=== PATIENT | male | born 1945 | race Caucasian/White ===

== ENCOUNTER → 2016-07-15 | Outpatient (CLI) | payer OTHER ==
[~2016-07-15] MED LIST: ACET1TAB84 PO; ASPI1TAB83 PO; CARB25TA14 PO; CLOP1TAB15 PO; CMP/10 PO; CRG625 PO; FURO-85 PO; GABA-113 PO; GLC500 PO; INSPMPHMLG SQ; INSUINJ4 SC; LORA-741 PO; LPT10 PO; NRN/300 PO; ONDA4TAB65 PO; ONDA8TAB6 PO; OPTIRAY 320 IV PRN; OXYC1TAB3 PO; PANT40TA PO; PROC1TAB5 PO; PSYL55.43 PO; ROPI0.25 PO; SENN1TAB77 PO; SILO8CAP PO
--- NOTE | 2016-07-15 12:42 | DIAGNOSTIC IMAGING REPORT ---
CT OF THE CHEST WITH IV CONTRAST CLINICAL HISTORY: PANCREATIC CA COMPARISON STUDY: 03/06/2016 TECHNIQUE: Following the IV administration of 119 mL of Optiray-320, CT of the thorax was performed from the thoracic inlet to the lung bases. Images are reviewed in the axial, sagittal, and coronal planes. IV contrast was administered without complication. CT DOSE: 1182.07 mGy.cm FINDINGS: Thyroid: Imaged portions of the thyroid gland are normal in appearance. Thoracic aorta: The thoracic aorta is normal in course and caliber, noting standard 3-vessel arch anatomy. No aneurysm or dissection is seen. Pulmonary vasculature: The pulmonary trunk is normal in caliber. There are no central filling defects identified to suggest pulmonary embolus. Note that this examination was not protocoled for the evaluation of pulmonary emboli. HEART: The heart is normal in size and configuration, without pericardial effusion. Lungs and pleural spaces: There is a 15 mm right lower lobe pulmonary nodule as visualized in image #187/306. This appears 2 mm larger than on the preceding study. There is an 8 mm left upper lobe pulmonary nodule as visualized in image #145/306. This appears 1 mm larger than on the prior study. There is a 6 mm nodule superior segment of the left lower lobe abutting the fissure. This remains unchanged when compared the preceding study. There is no lobar consolidation. Mediastinum: Calcified mediastinal lymph nodes remain similar to the prior study. Teresa: There is no evidence of pathologic hilar adenopathy Axilla: Clear. Upper abdomen: There is a 7 cm pancreatic head mass with vascular encasement. Skeletal structures: There are no lytic or blastic osseous lesions. IMPRESSION: 1. 7 cm pancreatic head mass with vascular encasement 2. 15 mm right lower lobe pulmonary nodule, slightly larger than the prior study 3. 8 mm left upper lobe pulmonary nodule, minimally larger than on the prior study Electronically signed by: Ricardo Arce M.D. 07/15/2016 12:40 PM Dictated Date/Time: 07/15/2016 12:31 PM
--- NOTE | 2016-07-15 12:56 | DIAGNOSTIC IMAGING REPORT ---
CT SCAN OF THE ABDOMEN AND PELVIS WITH IV CONTRAST CLINICAL HISTORY: Pancreatic cancer. COMPARISON STUDY: Abdominal CT dated 04/29/2016 and 03/06/2016. TECHNIQUE: Following the IV administration of 119 cc of Optiray 320, CT scan of the abdomen and pelvis is performed from the lung bases to the proximal femora. Images are reviewed in the axial, sagittal, and coronal planes. IV contrast was administered without complication. Automated dose control exposure was utilized. FINDINGS: Lung bases: The heart is normal in size and without pericardial effusion. There are coronary artery calcifications. A right basilar pulmonary lesion is again seen on image #26 appears and measures up to 1.6 cm. The lung bases are otherwise clear. No airspace consolidation or pleural effusion is identified. A small granuloma is noted at the right lung base. A tiny hiatal hernia is identified. Liver: The contrast-enhanced liver is normal in size and contour. The liver demonstrates diffusely diminished attenuation consistent with hepatic steatosis. There is no intrahepatic biliary ductal dilatation. The hepatic veins as well as the main and intrahepatic portal veins are patent. Gallbladder: Unremarkable. Spleen: Normal in size and attenuation. Pancreas: There has been no significant change in the appearance of a heterogeneous/infiltrative mass lesion centered around the head and neck of the pancreas. This measures approximately 5 x 7.5 cm as seen on image #116. The distal pancreas is markedly atrophic. This encases the portosplenic confluence, with occlusion of the SMV and the splenic vein. This also encases the celiac trunk. There are numerous omental and perigastric collateral vessels. Adrenal glands: Unremarkable. Kidneys: The contrast enhanced kidneys are normal in size and without hydronephrosis. The kidneys enhance symmetrically. Abdominal vasculature: The abdominal aorta is normal in course and caliber noting moderate atherosclerotic calcification. Bowel: The small bowel and colon are normal in course and caliber. There is moderate colonic fecal retention. The appendix is well-visualized and normal. Peritoneum: There is no intraperitoneal free air or abdominal ascites. There is a 1.2 cm focus of peritoneal nodularity in the right upper quadrant seen on image #178. This has modestly increased in size from 04/29/2016. An 11 mm omental nodule/lymph node is seen in the central mesentery on image #174. Faint developing nodularity suggested in the ventral mesentery in the left upper quadrant on image #173 Lymphadenopathy: None. Pelvic viscera: The prostate gland is diminutive and heterogeneous. The bladder wall appears thickened and trabeculated suggesting the sequelae of chronic obstruction. There are small bilateral fat-containing inguinal hernias. Skeletal structures: The skeletal structures are osteopenic. Moderate lumbosacral spondylosis is observed. No lytic or blastic lesions are seen. There are healed bilateral rib fractures. IMPRESSION: 1. No significant change in the appearance of a heterogeneous and infiltrative pancreatic mass lesion as compared to the 04/29/2016 examination. 2. An omental lesion in the right upper quadrant has modestly increased in size from previous. 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 3. Question faint developing omental nodularity in the left ventral abdomen. Attention at follow-up is recommended. 4. An indeterminant 1.6 cm nodular density is again seen at the right lung base. 5. The pancreatic mass lesion encases and occludes the superior mesenteric and splenic veins. There are numerous associated collateral vessels. 6. Additional changes as above. Electronically signed by: Sander Clark M.D. 07/15/2016 12:54 PM Dictated Date/Time: 07/15/2016 12:39 PM
== END | disposition home or self-care (01) ==
LOC: C.CTS 12:01
PROVIDERS: ATTEND Nurse Practitioner
DX: C25.1 Malignant neoplasm of body of pancreas (principal)

== ENCOUNTER → 2016-10-08 | Outpatient (CLI) | payer OTHER ==
--- NOTE | 2016-10-08 13:54 | DIAGNOSTIC IMAGING REPORT ---
CT OF THE CHEST WITH IV CONTRAST CLINICAL HISTORY: Pancreatic cancer. COMPARISON STUDY: Head CT July 15, 2016. TECHNIQUE: Following IV administration of 119 mL of Optiray-320, helical axial images of the chest were obtained. Images were viewed in the axial, sagittal and coronal planes. IV contrast was administered without complication. CT DOSE: 1037.91 mGy.cm FINDINGS: No enlarged axillary, mediastinal or hilar lymph nodes are present. The heart is mildly enlarged. There is extensive coronary artery calcification. A right subclavian [id number]-Rmqu is in place. The central airways are patent. A 1.8 cm solid nodule within the lateral basilar segment of the right lower lobe shown on image 197 of 301 has slightly increased in size since prior exam of July 15, 2016 when it measured 1.7 cm. A 9 mm solid and groundglass left upper lobe nodule shown on image 132 has slightly increased in size since prior exam when measured 7 mm. A 6 mm irregular subpleural nodule within the left lower lobe shown image 102 is unchanged. There are no new nodules. The bony thorax is unremarkable. The abdomen and pelvis will be reported separately but again demonstrate the pancreatic mass with vascular encasement. IMPRESSION: 1. Continued slight increase in size of several pulmonary nodules. The largest is a 1.8 cm right lower lobe nodule. The findings represent a slowly progressive neoplastic process. 2. No thoracic lymphadenopathy. Electronically signed by: Jorge L Garcia M.D. 10/08/2016 1:53 PM Dictated Date/Time: 10/08/2016 1:22 PM
--- NOTE | 2016-10-08 14:48 | DIAGNOSTIC IMAGING REPORT ---
ABDOMEN AND PELVIS CT WITH IV AND ORAL CONTRAST CT DOSE: HISTORY: A chronic cancer. TECHNIQUE: Multiaxial CT images of the abdomen and pelvis were performed following the use of intravenous and oral contrast. COMPARISON STUDY: Abdomen and pelvis CT 07/15/2016. FINDINGS: No change in size or appearance within the pancreatic head mass which measures approximately 7.6 x 5.2 cm. The distal pancreas remains markedly atrophic. The mass encases the portal splenic confluence with occlusion of the proximal superior mesenteric vein and splenic vein. Multiple mesenteric venous collaterals remain unchanged. Stable mesenteric lymph nodes with the dominant lymph node measuring 7 mm in short axis diameter. Subtle left-sided omental nodularity has improved. The 8 mm right-sided omental nodule has also decreased in size. This previously measured 12 mm. Bladder is mildly distended and thick-walled. This remains unchanged. Moderate well-formed stool seen within the colon. No evidence for bowel obstruction. Normal appendix. There is a possible 1.3 cm subtle hypodense lesion within the posterior segment of the right hepatic lobe best in image 64. Normal gallbladder, spleen, and adrenal glands. No hydronephrosis. Slight increase in size in 1.8 cm right lower lobe nodule. No suspicious lytic or blastic osseous lesions. IMPRESSION: 1. No change in size or appearance of the pancreatic head mass. 2. A few small omental nodules have slightly decreased in size. 3. Slight increase in size of the 1.8 cm right lower lobe nodule. 4. There is a possible 1.3 cm hypodense lesion within the right hepatic lobe. Continued follow is recommended. This could represent a developing metastatic focus. 5. Additional findings as described above. Electronically signed by: Cuco Zaragoza M.D. 10/08/2016 2:47 PM Dictated Date/Time: 10/08/2016 2:34 PM
== END | disposition home or self-care (01) ==
LOC: C.CTS 11:44
PROVIDERS: ATTEND Nurse Practitioner
DX: C25.1 Malignant neoplasm of body of pancreas (principal); R91.8 Other nonspecific abnormal finding of lung field

== ENCOUNTER → 2016-10-29 | Outpatient (CLI) | payer OTHER ==
[~2016-10-29] VITALS: Ht 170.2 cm; Wt 196.9 kg
[~2016-10-29] MED LIST changes: -OPTIRAY 320 IV PRN
[2016-10-29 13:52] VITALS: BP 125/73; PULSE 76; Ht 170.2 cm; Wt 196.9 kg
== END | disposition home or self-care (01) ==
LOC: C.NEUR 12:51
PROVIDERS: ATTEND Internal Medicine Pulmonary Disease
DX: G47.33 Obstructive sleep apnea (adult) (pediatric) (principal)

== ENCOUNTER → 2016-12-08 | Outpatient (CLI) | payer OTHER ==
[~2016-12-08] MED LIST changes: -PANT40TA PO
--- NOTE | 2016-12-09 05:53 | PAP/PSG TECHNICIAN REPORT ---
[facility] Supervising Chef Polysomnogram Report Study name: None Report date: 12/09/2016 Study date: 12/08/2016 Referring Physician: DR. SHRESTHA Name: BETINA HANDY Interpreting Physician: Brent Shrestha M.D. Date of : 1945 Supervising Chef: Uvaldo Mack RPSGT. Sex: Male Age: 71 StudyType: PSG Weight: 196 lbs 17 inches Height: 71 years, Height 5' 7" Neck Circum: BMI: 30.69 Medications: ASPIRIN 81 MG, CARBIDOPA-LEVODOPA 25-250 MG, CARVEDILOL 6.25 MG, FUROSEMIDE 20 MG, GABAPENTIN 300 MG, HUMALOG, LANTUS SOLOSTAR, LIPITOR 10 MG, LORAZEPAM 0.5 MG, METFORMIN HCL 500 MG, PANTOPRAZOLE SODIUM 40 MG, PLAVIX 75 MG, RAPAFLO 8 MG, ROPINIROLE HCL 0.25 MG, Patient History PATIENT WAS DIAGNOSED WITH TIFF BACK IN 2010 AND WAS WEARING CPAP. HE LOST AROUND 50LBS AND THE CPAP STARTED TO BECOME UNCOMFORTABLE FOR HIM TO WEAR. HE IS HERE FOR AN EVALUATION FOR TIFF. ESS = 21 RM 7 Parameters Monitored NPSG: E1-M2, E2-M1, Fp1-M2, Fp2-M1, F3-M2, F4-M2, F4-M1, C3-M2, C4-M2, C4-M1, O1-M2, O2-M2, O2-M1, T3-M2, T4-M1, P3-M2, P4-M1, CHIN1, CHIN2, HR, EKG, Legs, PFLOW, SNOR, FLOW, CFLOW, Tidal Volume, THOR, ABDO, SpO2, PLTH, CPRESS, ETCO2 Wave, ETCO2, pH Sleep Architecture Sleep Stages Time at Lights Off 10:15:41 PM STAGES Time (min.) TST (%) Time at Lights On 5:25:41 AM Wake 37.5 -- Total Recording Time (TRT) 430.50 min. N1 18.5 5 Total Sleep Period (TSP) 421.0 min. N2 310.0 79 Total Sleep Time (TST) 392.5min. N3 41.5 11 Awake Time 37.5 min. REM 22.5 6 Wake after Sleep Onset 28.5 min. Sleep Efficiency (SE) 91 % Sleep Onset Latency (TRAVIS) 9.0 min. Number of Stage 1 Shifts None Awakenings 16 Stage Changes 62 Number of REM periods 1 REM 22.5 6 REM Latency 159.0 min. NREM 370.0 94 Body Position Analysis Supine Right Left Side Prone Vertical Total Sleep Time (min.) 3.2 260.5 132.0 392.50 0.0 0.0 Total Sleep Time (%) 0% 66% 34% 100 0% N/A% Total Sleep Time REM (min.) 0.0 22.5 0.0 None 0.0 0.0 Total Sleep Time NREM (min.) 0.0 238.0 132.0 None 0.0 0.0 Intermittent Wake (min.) 3.2 12.9 21.4 None 0.0 0.0 Total Sleep Period (%) 0% None None None None None Arousals Myoclonus (PLM) * Events Count Index Events Count Index Spontaneous 28 4 Events Awake (PLMW) 31 49.6 Respiratory 2 0.3 Events Asleep w/ Arousal (PLMA) 15 2.3 PLM 13 2 Events Asleep w/o Arousal (PLMS) 516 78.9 Snoring 2 0 Total Asleep 531 81.2 Total 45 7 Total 562 78 Respiratory Analysis * CA OA MA CH H RERA Total Count 0 0 0 0 8 1 8 Index 0.0 0.0 0.0 0 1.2 0 1.4 Mean Duration 0.0 0.0 0.0 0.00 18.0 13.8 17.5 Longest Duration 0.0 0.0 0.0 0.00 0.0 13.8 20.4 Respiratory Event Summary Total Supine ~Supine Right Left Prone REM NREM Apneas Count 0 N/A 0 0 0 N/A 0 0 Index 0.0 N/A 0 0.0 0.0 N/A 0 0 Hypopneas (4% Desat) Count 8 N/A 8 6 2 N/A 3 5 Index 1.2 N/A 1 1.4 0.9 N/A 8.0 0.8 Apneas & All Hypopneas Count 8 N/A 8 6 2 N/A 3 5 Index 1.2 N/A 1 1 1 N/A 8.0 0.8 Respiratory Events (Load Tester+All Hyp+RERA) Count 8 N/A 9 7 2 N/A 3 5 Index 1.4 N/A 1 1.6 0.9 N/A 8.0 1.0 Respiratory Related Arousal Count 2 N/A 2 1 1 N/A 0 2 Index 0.3 N/A 0 0 0 N/A 0 0 Snoring Analysis Supine Right Left Prone REM NREM Total Snore duration 1.0 min Snores count N/A 21 5 N/A 3 23 26 Snore mean duration 2.4 Sec Snores index N/A 5 2 N/A 8.0 3.7 4.0 TST with snoring (%) 0.3% Desaturation Event Summary: Minimum %SpO2 Event Count Mean/Min/Max Duration(sec.) Desaturation Index % Time In Bed > 90 15 31.7 / 9.0 / 70.7 2.7 76.7 86 - 90 2 24.5 / 9.0 / 40.0 1.2 23.3 81 - 85 0 N/A 0.0 0.0 76 - 80 0 N/A 0.0 0.0 71 - 75 0 N/A 0.0 0.0 66 - 70 0 N/A 0.0 0.0 61 - 65 0 N/A 0.0 0.0 56 - 60 0 N/A 0.0 0.0 51 - 55 0 N/A 0.0 0.0 < 50 0 N/A 0.0 0.0 Total REM NREM Awake <50% 0.0 min. 0.0 min. 0.0 min. 0.0 min. 51 - 60% 0.0 min. 0.0 min. 0.0 min. 0.0 min. 61 - 70% 0.0 min. 0.0 min. 0.0 min. 0.0 min. 71 - 80% 0.0 min. 0.0 min. 0.0 min. 0.0 min. 81 - 90% 100.2 min. 12.4 min. 85.3 min. 2.5 min. 91 - 100% 329.6 min. 10.1 min. 284.6 min. 34.9 min. Average 92 90 91 93 Minimum SpO2 87 88 87 89 Desaturation Event Index 2.1 8.0 1.0 11.2 # Desat. Events below 89% 4 2 2 N/A Time(%) with Saturation below 89% 1.8 0.2 1.6 0.0 Time(min.) with Saturation below 89% 7.6 0.9 6.7 0.0 Time (mins) REM (mins) NREM (mins) % of TST SpO2 Below 90% 9 3 N6 8.8 SpO2 Below 88% 3 0 0 0 Heart Rate Analysis Min (bpm) Max (bpm) Average (bpm) Awake 61 80 70 NREM 59 76 66 REM 65 74 68 Overall 59 76 66 Supplemental O2 Values Minimum O2 level: None Value Start Time End Time Supervising Chef Comments Mr. Handy slept in the right, left and supine positions. PVC's noted. Leg movements noted. No bruxism noted. Snoring was noted and scored as a 2 on a scale of 1 through 5. (0=no snoring, 5=snoring loud enough to be heard through a closed door or down the [address] way) Mr. Handy awoke to use the restroom 0 times during the night. Mr. Handy stated I slept as well as I do when I am in my own bed. The final report will be interpreted and signed by a sleep physician. The completed physician report will then be placed in the patient medical record. Therapy (cm H2O) 0 TIB (min.) 430.0 TST (min.) 392.5 Sleep Onset (min.) 9.0 REM Onset From Sleep (min.) 159.0 Sleep Efficiency % 91 Wakefulness (%) 9 Wakefulness (min.) 37.5 NREM 1 (%) 5 NREM 1 (min.) 18.5 NREM 2 (%) 79 NREM 2 (min.) 310.0 NREM 3 (%) 11 NREM 3 (min.) 41.5 REM (%) 6 REM (min.) 22.5 # Arousals 45 Arousal Index 7 # Snore 26 Snore Index 4.0 AHI 1.2 AHI Supine N/A AHI Non-Supine 1 NREM AHI 0.8 REM AHI 8.0 RDI 1.4 # Obstructive Apnea 0 # Central Apnea 0 # Mixed Apnea 0 # Hypopneas 8 RERAs 1 Total Respiratory Events 9 Time Below SpO2 89% (min.) 7.6 Mean NREM SpO2 (%) 91 Mean REM SpO2 (%) 90 Mean Sleep SpO2 (%) 91 Min NREM SpO2 (%) 87 Min REM SpO2 (%) 88 Position Supine (min.) 3.2 Position Non-supine (min.) 392.5 LM Index Sleep 81.2 LM Index NREM 85.0 LM Index REM 18.7 Mean Heart Rate (bpm) 66 Min Heart Rate (bpm) 59
--- NOTE | 2016-12-11 09:15 | POLYSOMNOGRAPH REPORT ---
CLINICAL DATA: A 71-year-old male with BMI of 30.7, referred by myself and Dr. Martinez for reevaluation of sleep apnea. He was diagnosed with severe obstructive sleep apnea in 2010 on a home sleep apnea test performed through [facility]. It showed an AHI of 43. He was started on CPAP. He lost 50 pounds and stopped using CPAP. He does have an elevated Ezel Sleepiness score of 21/24. SLEEP ARCHITECTURE: Total sleep period was 421 minutes. Total sleep time was 392.5 minutes divided between 370 of non-REM sleep and 22.5 minutes of REM sleep. Sleep onset latency was 9 minutes. REM latency was mildly delayed at 159 minutes. Sleep efficiency was 91%. Wake after sleep onset was 28.5 minutes. Sleep consisted of stage N1 5%, N2 79%, N3 11%, REM 6%. AROUSAL DATA: 45 arousals were recorded for an index of 7 per hour. 28 were spontaneous. 13 were due to PLMs. PLM DATA: Severely elevated limb movements during sleep were noted. There were 531 limb movements during sleep noted for an index of 81.2 per hour with arousal index of 2.3 per hour. RESPIRATORY DATA: There was no evidence of clinically significant sleep apnea/hypopnea seen. The AHI was 1.2. There were 8 hypopneic episodes, the mean duration of which was 18 seconds. OXIMETRY DATA: No significant hypoxemia was seen. Oxygen collins was 87% during non-REM sleep. Mean saturation was 92%. Time below 88% was 3 minutes. EKG: Heart rates ranged from 59-76 beats per minute. PVCs were noted. INVESTOR RELATIONS SPECIALIST'S COMMENTS: The patient slept in the right, left and supine positions. Frequent leg movements were noted. Snoring was mild, rated 1-2 on a scale of 1 through 5. IMPRESSION: No evidence of clinically significant sleep apnea/hypopnea or nocturnal hypoxemia. There was nothing on the current sleep study to suggest that CPAP would be needed. The patient did have frequent leg movements during sleep, possibly consistent with his Parkinson's disease and periodic limb movement disorder. RECOMMENDATIONS: There is no need for CPAP at this time. Continued treatment for his Parkinson's disease is recommended. The patient should continue to practice good sleep hygiene. [facility]
== END | disposition home or self-care (01) ==
LOC: C.NEUR 20:00
PROVIDERS: ATTEND Internal Medicine Pulmonary Disease
DX: E11.9 Type 2 diabetes mellitus without complications (principal); I10 Essential (primary) hypertension; G47.00 Insomnia, unspecified; G31.84 Mild cognitive impairment of uncertain or unknown etiology; G47.33 Obstructive sleep apnea (adult) (pediatric); G20 Parkinson's disease; R06.83 Snoring

== ENCOUNTER → 2016-12-27 | Outpatient (CLI) | payer OTHER ==
[~2016-12-27] MED LIST changes: +OPTIRAY 320 IV PRN
--- NOTE | 2016-12-27 12:09 | DIAGNOSTIC IMAGING REPORT ---
CT ABD/PELVIS IV AND ORAL CONT CLINICAL HISTORY: Pancreatic carcinoma. Restaging procedure. COMPARISON STUDY: 10/08/2016 TECHNIQUE: Following the IV administration of 93 mL of Optiray-320, CT scan of the abdomen and pelvis was performed from the lung bases to the proximal femurs. Images are reviewed in the axial, sagittal, and coronal planes. IV contrast was administered without complication. CT DOSE: 820.34 mGy.cm FINDINGS: Lower chest: There is a stable 17 mm pleural-based right lower lobe pulmonary nodule. Liver: There is mild hepatic steatosis. No focal hepatic masses are visualized. Gallbladder: Unremarkable. Spleen: Normal in size and attenuation. Pancreas: There is a 71 x 49 mm pancreatic head mass with encasement of the superior mesenteric and celiac artery. There is encasement and occlusion of the splenic vein Adrenal glands: Unremarkable. Kidneys: There is symmetric renal cortical enhancement. The kidneys are normal in size without hydronephrosis. Bowel: There are no transition zones indicate bowel obstruction. There is no evidence of acute diverticulitis. There is no evidence of acute appendicitis. Peritoneum: There is no intraperitoneal free air or abdominal ascites. Vasculature: The abdominal aorta is normal in course and caliber. Adenopathy: There are no pathologically enlarged lymph nodes by size criteria Pelvic viscera: The bladder, and pelvic viscera are unremarkable. Skeletal structures: No destructive osseous lesions are seen. IMPRESSION: 1. Pancreatic head mass (71 x 49 mm) with vascular encasement. This is perhaps a few millimeters smaller than on the preceding study 2. Stable 17 mm right lower lobe pulmonary nodule 3. No evidence of bowel obstruction. No evidence of free air. No acute inflammatory changes. Electronically signed by: Ricardo Arce M.D. 12/27/2016 12:07 PM Dictated Date/Time: 12/27/2016 11:58 AM
--- NOTE | 2016-12-27 12:17 | DIAGNOSTIC IMAGING REPORT ---
CHEST CT WITH CONTRAST CT DOSE: HISTORY: Pancreatic cancer. TECHNIQUE: Multiaxial CT images of the chest were performed following the intravenous administration of contrast. COMPARISON: Chest CT 10/08/2016. FINDINGS: The central airways are patent. No pleural effusions. No pneumothorax. There are few scattered pulmonary nodules which are not significantly changed in size. Dominant nodule within the right lower lobe continues to measure 1.8 cm. No new pulmonary nodules identified. No suspicious lytic or blastic osseous lesions. Right subclavian Port-A-Cath terminates in the distal SVC. No evidence for an aortic dissection. The central pulmonary arteries are patent. Pancreatic mass is only partially visualized. No mediastinal or hilar lymphadenopathy. IMPRESSION: Stable pulmonary nodules likely representing metastatic disease. Please refer to the same day abdomen and pelvis CT for further evaluation of the pancreatic mass. Electronically signed by: Cuco Zaragoza M.D. 12/27/2016 12:16 PM Dictated Date/Time: 12/27/2016 12:11 PM
== END | disposition home or self-care (01) ==
LOC: C.CTS 11:39
PROVIDERS: ATTEND Nurse Practitioner Family
DX: C25.1 Malignant neoplasm of body of pancreas (principal); R91.1 Solitary pulmonary nodule

== ENCOUNTER → 2016-12-31 | Outpatient (CLI) | payer OTHER ==
[~2016-12-31] MED LIST changes: -OPTIRAY 320 IV PRN
--- NOTE | 2016-12-31 14:31 | DIAGNOSTIC IMAGING REPORT ---
RIGHT PELVIS UNILATERAL HIP 1 VIEW CLINICAL HISTORY: Right hip pain. COMPARISON: CT of the abdomen and pelvis December 27, 2016. FINDINGS: No fracture or suspicious lesion is identified within the right hip. There is moderate vascular calcification. There is mild to moderate osteoarthritis of the right hip. IMPRESSION: 1. No acute fracture of the right hip. 2. Mild to moderate osteoarthritis of the right hip. Electronically signed by: Jorge L Garcia M.D. 12/31/2016 2:30 PM Dictated Date/Time: 12/31/2016 2:28 PM
--- NOTE | 2016-12-31 14:39 | DIAGNOSTIC IMAGING REPORT ---
LUMBAR SPINE 5 VIEWS HISTORY: LOWER BACK PAIN COMPARISON: Lumbar spine 05/18/2015. Abdomen and pelvis CT 12/27/2016. FINDINGS: There is no fracture. No subluxation. Mild to moderate facet osteoarthritis within the mid to lower lumbar spine. There is 3 mm of anterolisthesis of L5 on S1, unchanged. Mild disc space narrowing at L4-L5. Multiple small endplate osteophytes. There is also mild disc space narrowing at L1-L2 and L2-L3. IMPRESSION: No fracture within the lumbar spine. No change in the multilevel degenerative changes as described above. Electronically signed by: Cuco Zaragoza M.D. 12/31/2016 2:38 PM Dictated Date/Time: 12/31/2016 2:36 PM
== END | disposition home or self-care (01) ==
LOC: C.RDSM 13:20
PROVIDERS: ATTEND Physician Assistant
DX: M25.551 Pain in right hip (principal)

== ENCOUNTER 2017-02-18 22:11 | Emergency (ER) | payer OTHER ==
[~2017-02-18] VITALS: Ht 170.2 cm; Wt 85.8 kg
[~2017-02-18 22:11] MED LIST changes: -ACET1TAB84 PO; -LORA-741 PO; -ONDA8TAB6 PO; -OXYC1TAB3 PO; -PROC1TAB5 PO
[2017-02-18 22:17] VITALS: TEMP 36.8; Ht 170.2 cm; Wt 85.8 kg
[2017-02-18] MEDS ORDERED: MoRPHine SULFATE 10 MG/ML CARP/VIAL IM STA (22:27)
[2017-02-18] MEDS ORDERED: ONDANSETRON 4MG OD TAB PO ONE (22:30)
--- NOTE | 2017-02-18 22:44 | EMERGENCY ROOM VISIT NOTE ---
ED Visit Note First contact with patient: 22:20 I did evaluate and examine this patient myself. I did guide management for the patient. I agree with the APC's assessment as discussed. Please see the APC's dictation for further details. I did independently review the left shoulder x- rays.
[2017-02-18] MEDS ORDERED: LORA-741 PO (22:50)
[2017-02-18] MEDS ORDERED: OXYCODONE IR HOME PACK PO ONE (23:00)
--- NOTE | 2017-02-18 23:00 | DIAGNOSTIC IMAGING REPORT ---
CHEST ONE VIEW PORTABLE CLINICAL HISTORY: fall, left shoulder pain trauma. Pain. COMPARISON STUDY: 04/29/2016 FINDINGS: Fracture left humeral neck and possibly head. Lungs are clear. Central catheter ends. Cava. IMPRESSION: Fracture left humeral neck/head. The lungs are clear. The above report was generated using voice recognition software. It may contain grammatical, syntax or spelling errors. Electronically signed by: Pepito Knight M.D. 02/18/2017 10:59 PM Dictated Date/Time: 02/18/2017 10:58 PM
--- NOTE | 2017-02-18 23:01 | DIAGNOSTIC IMAGING REPORT ---
LEFT SHOULDER MIN 2 VIEWS ROUTINE CLINICAL HISTORY: fall, deformity trauma COMPARISON: 08/28/2015 DISCUSSION: Mildly impacted fracture humeral head and neck. No evidence of dislocation. Moderate degenerative change acromioclavicular joint. There is no evidence for soft tissue swelling. IMPRESSION: Comminuted slightly impacted fracture left humeral head and neck. No evidence of dislocation. The above report was generated using voice recognition software. It may contain grammatical, syntax or spelling errors. Electronically signed by: Pepito Knight M.D. 02/18/2017 11:00 PM Dictated Date/Time: 02/18/2017 10:59 PM
[2017-02-18] MEDS ORDERED: OXYC1TAB3 PO (23:02)
[2017-02-18] MEDS ORDERED: ONDANSETRON HOME PACK 4MG OD TAB ONE (23:11)
[2017-02-18] MEDS ORDERED: ONDANSETRON HOME PACK 4MG OD TAB PO ONE (23:15)
[2017-02-18 23:26] VITALS: BP 146/84; PULSE 77; O2SAT 95
--- NOTE | 2017-02-19 00:15 | EMERGENCY ROOM VISIT NOTE ---
History First contact with patient: 22:20 Chief Complaint: SHOULDER PAIN Stated Complaint: LT SHOULDER INJURY/PAIN History of Present Illness The patient is a 71 year old male who presents to the Emergency Room with complaints of right shoulder pain after slipping in the bathroom coming out of the shower landing on his left shoulder. Pain currently 8 out of 10. Worse with movement and better with rest. Patient denies headache, head injury, neck pain, back pain, chest pain, dyspnea, numbness, tingling, elbow pain, abdominal pain, leg pain or any other medical complaints. No prior fracture to this shoulder. He follows at [facility] orthopedics and he has had shoulder injections before to the shoulder for rotator cuff injury. He is on a baby aspirin. He is currently receiving chemotherapy every 2 weeks for pain for the carcinoma. Review of Systems See HPI for pertinent positives & negatives. A total of 10 systems reviewed and were otherwise negative. Past Medical/Surgical History Medical Problems: (1) Cataract Nos (2) Diab Tessie Wo Compl, Type Ii Or Unspec Type, Not Uncntrld (3) Hypertension Nos (4) Malig Nikhil Pancreas Nos (5) Pancreatic adenocarcinoma (6) Primary pancreatic cancer Family History Diabetes mellitus Heart disease Hypertension Social History Smoking Status: Former Smoker Alcohol Use: occasionally Marital Status: Housing Status: lives with family Occupation Status: retired Current/Historical Medications Scheduled Aspirin (Aspirin), 81 MG PO DAILY Atorvastatin (Atorvastatin Calcium), 10 MG PO HS Carbidopa/Levodopa (Sinemet 25MG/250MG), 1.5 TAB PO QID Carvedilol (Carvedilol), 6.25 MG PO BIDM Clopidogrel (Plavix), 75 MG PO DAILY Gabapentin (Neurontin), 1 CAP PO AM & DINNER Gabapentin (Neurontin), 600 MG PO HS Insulin Glargine (Lantus Solostar Pen), 25-40 UNITS SC HS Insulin Human Lispro (Humalog), 8-20 UNIT SQ ACHS Metformin HCl (Metformin HCl), 500 MG PO BID Ropinirole (Requip), 0.25 MG PO TID Silodosin (Rapaflo), 8 MG PO QPM Scheduled PRN Furosemide (Lasix), 20 MG PO DAILY PRN for FLUID RETENTION Lorazepam (Ativan), 0.5 MG PO DAILY PRN for Anxiety Oxycodone Immediate Rel Tab (Roxicodone Ir), 1-2 TAB PO Q4H PRN for Severe Pain Allergies Coded Allergies: Codeine (Verified Adverse Reaction, Mild, GI SYMPTOMS, 04/29/16) nausea Physical Exam Vital Signs Date Time Temp Pulse Resp B/P (MAP) Pulse Ox O2 Delivery O2 Flow Rate FiO2 02/18/17 23:26 77 18 146/84 95 02/18/17 22:17 36.8 92 16 145/84 95 Room Air Physical Exam VITALS: Vitals are noted on the nurse's note and reviewed by myself. Vital signs stable. GENERAL:pleasant male, in no acute distress, nondiaphoretic, well-developed well -nourished. SKIN: The skin was without rashes, erythema, edema, or bruising. There is no tenting of the skin. Capillary reflex less than 2 seconds. HEAD: Normocephalic atraumatic. EARS: External auditory canals clear, tympanic membranes pearly simmons without erythema or effusion bilaterally. EYES: Pupils equal round and reactive to light and accommodation. Conjunctivae without injection, sclerae without icterus. Extraocular movements intact. NOSE: Patent, turbinates without inflammation or discharge. MOUTH: Mucous membranes moist. Pharynx without erythema or exudate. Uvula midline. Airway patent. Tongue does not deviate. NECK: Supple without nuchal rigidity. No lymphadenopathy. No thyromegaly. Cervical spine is nontender. No JVD. HEART: Regular rate and rhythm LUNGS: Clear to auscultation bilaterally without wheezes, rales or rhonchi. No dullness to percussion. No retractions or accessory muscle use. No chest wall tenderness. ABDOMEN: Positive bowel sounds x 4. Normal tympanic percussion. Soft, nontender, without masses or organomegaly. Gonzales sign negative. No guarding or rebound tenderness. MUSCULOSKELETAL: No muscle atrophy, erythema, or edema noted. Left shoulder with obvious deformity tender to palpation over the humeral head, unable to assess range of motion secondary to pain and obvious deformity. No left clavicular pain, elbow pain, wrist pain, forearm pain, hand pain. Radial pulses +2 equal present bilaterally. Patient can give a thumbs up sign, okay sign and move all fingers without difficulties. NEURO: Patient was alert and oriented to person place and time. Normal sensation to light and sharp touch. No focal neurological deficits. No thoracic or lumbar tenderness on exam. Medical Decision & Procedures Medications Administered Medications (Trade) Dose Ordered Sig/Dez Route Start Time Stop Time Status Last Admin Dose Admin Morphine Sulfate (MoRPHine SULFATE INJ) 8 mg NOW STAT IM 02/18/17 22:27 02/18/17 22:30 DC 02/18/17 23:02 8 MG Ondansetron HCl (Zofran Odt) 4 mg ONE ONCE PO 02/18/17 22:30 02/18/17 22:31 DC 02/18/17 23:02 4 MG Oxycodone HCl (Roxicodone Immediate Rel 5MG Home Pack) 1 homepack UD ONCE PO 02/18/17 23:00 02/18/17 23:01 DC 02/18/17 23:12 1 HOMEPACK Ondansetron HCl (ZOFRAN ODT 4MG Home Pack) 1 homepack UD ONCE PO 02/18/17 23:15 02/18/17 23:16 DC 02/18/17 23:12 1 HOMEPACK ED Course Prior records/ancillary studies reviewed. Triage Nursing notes reviewed. Additional history obtained from family The patient's history was concerning for left shoulder pain. Differential diagnosis: Etiologies such as musculoskeletal, dislocation, fracture, metastatic disease , contusion, as well as others were entertained. Physical findings: As above. No focal neurologic findings noted. ER treatment provided: Morphine, Zofran, sling On reassessment the patient felt better. Diagnostics interpreted by me: Imaging studies: Right shoulder x-ray concerning for impacted humeral head fracture and neck that is comminuted per my interpretation Chest x-ray with no acute consolidation, pneumothorax or free air per my interpretation This appears to be consistent with left humeral head and neck fracture that is comminuted. Patient has an orthopedic doctor. He follows with the [facility] orthopedics. He was placed in a sling and neurovascular status is rechecked after placement and is intact. He is advised to call him this morning at 8 AM for follow-up. He is advised to return to the ER immediately for severe pain, numbness, tingling, worsening signs or symptoms or as needed. By the evaluation outlined above emergent etiologies such as metastatic disease , dislocation, as well as others were deemed relatively unlikely. The pt informed about the findings as listed above. All questions were answered and pleased with the treatment. Return instructions were outlined and the patient was discharged in stable condition. Outpatient prescription management: Zofran Oxy IR 5mg 1-2 po Q4 hrs prn Referral: The patient was referred back to orthopedics for follow-up in 1-2 days for a recheck of the current condition. Case reviewed with my attending Medical Decision as above Impression Primary Impression: Closed fracture of neck of right humerus Additional Impression: Fall Departure Information Dispostion Home / Self-Care Condition GOOD Prescriptions Oxycodone Immediate Rel Tab (ROXICODONE IR) 5 Mg Tab 1-2 TAB PO Q4H Y for Severe Pain, #15 TAB Prov: Abril Guerrero PA-C 02/18/17 Forms HOME CARE DOCUMENTATION FORM, IMPORTANT VISIT INFORMATION Patient Instructions Lesa Pool, My [facility] Additional Instructions DO NOT drive, drink alcohol, operate machinery, or perform dangerous activities today. You were given medications in the ER that can affect your ability to safely function or operate a vehicle. Oxycodone (OxyIR) 5mg: Take 1-2 pills every four hours for breakthrough pain. Avoid alcohol, operating machinery or dangerous equipment, working on ladders or roofs, DRIVING, or situations where being under the influence may be dangerous. It is recommended to use an ytci-nly-[id number] stool softener such as Colace, 100mg twice daily while taking this medication to avoid constipation. Ibuprofen(Motrin, Advil) may be used for fever or pain. Use 600mg every six hours as needed. Take with food. Avoid using more than 2400mg in a 24 hour period. Do not use 2400mg per day for more than three consecutive days without physician direction. Prolonged inappropriate use can lead to stomach upset or ulcers. This medication can be taken if you need to drive, work, or perform activities which may be dangerous when taking narcotic pain medication. (AND/OR) Acetaminophen(Tylenol) may be used for fever or pain. Use 1000mg every six hours as needed. Avoid using more than 3000mg in a 24 hour period. This medication can be taken if you need to drive, work, or perform activities which may be dangerous when taking narcotic pain medication. Ice compresses for 20 minutes at a time four times daily for 2-3 days. Use the sling as instructed. Remove your arm from the sling 4-6 times a day and move all the joints around to keep them loose. Rest and elevate your injury. Continue current medications. Return to the ER immediately for any numbness, tingling, severe pain, extreme swelling in the extremity or as needed. Call your Orthopedics tomorrow to arrange follow up for your injury. Problem Qualifiers Primary Impression: Closed fracture of neck of right humerus Encounter type: initial encounter Qualified Codes: S42.211A - Unspecified displaced fracture of surgical neck of right humerus, initial encounter for closed fracture
--- NOTE | 2017-02-20 10:39 | EDITING REQUIRED CODING QUERY ---
CODING QUERY To promote full compliance with coding requirements relating to patient care, provider participation is requested in all cases of pressure supervisor uncertainty. Please assist us with the question(s) below: Coding Question(s): Throughout ED note it state Left Shoulder and Right Shoulder. Please specify laterality of the shoulder injury. Physician's Response(s): Left Humeral Head Fracture Thank you Natalie Quevedo Principal Diagnosis: "_that condition established after study, to be chiefly responsible for occasioning the admission of the patient to the hospital for care." Co-Existing Principal Diagnosis: "_when two or more diagnoses equally meet the criteria for principal diagnosis as determined by the circumstances of admission, diagnostic work up, and/or therapy provided, and the Alphabetic Index, Tabular List, or another coding guideline does not provide sequencing direction, any one of the diagnoses may be sequenced first." "When the physician has documented what appears to be a current diagnosis in the body of the record, but has not included the diagnosis in the final diagnostic statement, the physician should be asked whether the diagnosis should be added." (Source Coding Clinic 2 QTR90. p3-4)
[2017-03-11] MEDS ORDERED: ACET1TAB84 PO (14:37)
[2017-03-11] MEDS ORDERED: ONDA8TAB6 PO (14:38)
[2017-03-11] MEDS ORDERED: PROC1TAB5 PO (14:38)
== END 2017-02-18 23:26 | disposition home or self-care (01) ==
LOC: C.EDB 22:12
DX: S42.202A Unspecified fracture of upper end of left humerus, initial encounter for closed fracture (principal); W01.0XXA Fall on same level from slipping, tripping and stumbling without subsequent striking against object, initial encounter; Y92.012 Bathroom of single-family (private) house as the place of occurrence of the external cause; Y93.E1 Activity, personal bathing and showering; H26.9 Unspecified cataract; E11.9 Type 2 diabetes mellitus without complications; I10 Essential (primary) hypertension; C25.9 Malignant neoplasm of pancreas, unspecified; Z79.82 Long term (current) use of aspirin; Z79.4 Long term (current) use of insulin; Z79.84 Long term (current) use of oral hypoglycemic drugs; Z87.891 Personal history of nicotine dependence; Z83.3 Family history of diabetes mellitus; Z82.49 Family history of ischemic heart disease and other diseases of the circulatory system

== ENCOUNTER → 2017-03-06 | Outpatient (CLI) | payer OTHER ==
[~2017-03-06] MED LIST changes: +ACET1TAB84 PO; -CMP/10 PO; +LORA-741 PO; -ONDA4TAB65 PO; +ONDA8TAB6 PO; +OXYC1TAB3 PO; +PROC1TAB5 PO; -PSYL55.43 PO; -SENN1TAB77 PO
== END | disposition home or self-care (01) ==
LOC: C.RDSM 16:00
PROVIDERS: ATTEND Orthopaedic Surgery Sports Medicine
DX: Z09 Encounter for follow-up examination after completed treatment for conditions other than malignant neoplasm (principal); M25.512 Pain in left shoulder

== ENCOUNTER → 2017-03-18 | Outpatient (CLI) | payer OTHER ==
[~2017-03-18] MED LIST changes: -OXYC1TAB3 PO
== END | disposition home or self-care (01) ==
LOC: C.RDSM 13:45
PROVIDERS: ATTEND Orthopaedic Surgery Sports Medicine
DX: Z09 Encounter for follow-up examination after completed treatment for conditions other than malignant neoplasm (principal)

== ENCOUNTER → 2017-03-20 | Day surgery (SDC) | payer OTHER ==
[2017-03-11 14:38] VITALS: Ht 175.3 cm; Wt 89.5 kg
[~2017-03-20] VITALS: Ht 175.3 cm; Wt 89.5 kg
[~2017-03-20] MED LIST changes: +LIDOCAINE HCL 1% MPF 5 ML VIAL ONE; +SODIUM CHLORIDE 0.9% INJ 10 ML VIAL ONE
[2017-03-20 14:21] VITALS: TEMP 36.8
--- NOTE | 2017-03-20 15:24 | History & Physical Bridge - SC ---
H&P Re-Evaluation Bridge Note: I have examined the patient, reviewed the History & Physical and in the interval since the performance of the History & Physical I have noted the following changes of clinical significance: No changes noted
--- NOTE | 2017-03-20 15:59 | Discharge Instructions ---
Discharge Instructions Date of Service Mar 20, 2017. Visit Reason for Visit: Sacral Radiculopathy Discharge Discharge Diagnosis / Problem: right leg pain Discharge Goals Goal(s): Decrease discomfort, Improve function Activity Recommendations Activity Limitations: resume your previous activity Anesthesia . Post Anesthesia Instructions: If you have had General Anesthesia or IV Sedation: * Do not drive today. * Resume driving when surgeon permits. * Do not make important decisions or sign legal documents today. * Call surgeon for: 1. Temperature elevations greater than 101 degrees F. 2. Uncontrollable pain. 3. Excessive bleeding. 4. Persistent nausea and vomiting. 5. Medication intolerance (nausea, vomiting or rash). * For nausea and vomiting use only clear liquids such as: tea, soda, bouillon until nausea subsides, then gradually increase diet as tolerated. * If you have any concerns or questions, call your surgeon's office. If physician is unavailable and it is an emergency, call 911 or go to the nearest emergency room. . Diet Recommendations Recommended Home Diet: resume previous diet Procedures Procedures Performed: CAUDAL EPIDURAL STEROID INJECTION Pending Studies Studies pending at discharge: no Medical Emergencies . Who to Call and When: Medical Emergencies: If at any time you feel your situation is an emergency, please call 911 immediately. . Non-Emergent Contact Non-Emergency issues call your: Specialist . . "Provider Documentation" section prepared by Kota Mendoza. .
[2017-03-20 16:08] VITALS: BP 175/80; PULSE 80; O2SAT 96
--- NOTE | 2017-03-20 19:17 | OPERATIVE REPORT ---
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 POSTOPERATIVE DIAGNOSIS: Same. PROCEDURE: Caudal epidural steroid injection under fluoroscopic guidance. INDICATIONS: The patient is a 71-year-old white male who has S1 radiculopathy secondary to L5-S1 foraminal stenosis, presents today for an epidural injection and will be given the caudal route given his history of low platelets as he is currently receiving chemotherapy for pancreas cancer. PHYSICAL EXAMINATION: Pleasant male who has a fractured right upper extremity. His lower extremities were intact with trace ankle response on the left ankle and absent on the right. No focal weakness. CONSENT: Verbal and written consent was obtained from the patient. Risks and benefits were reviewed. Risks include but are not limited to epidural abscess, epidural hematoma, allergic reaction, dural puncture. The patient wishes to proceed. PROCEDURE: The patient was taken back to the special procedures room of the [facility] where he was maintained in a prone position. Backside was cleansed with Betadine x3 and a dry sterile dressing was applied. Fluoroscope was used to identify the sacral hiatus and the overlying skin was anesthetized with 4 mL of lidocaine 1% with a 25 gauge 1.5-inch needle. The patient then underwent placement of a 25 gauge 3.5 inch spinal needle up the spinal canal under lateral fluoroscopic guidance. He then underwent injection after negative aspiration of 40 mg of Depo-Medrol and 4 mL of preservative free sodium chloride. Injection reproduced some mild pressure into the sacral area. DISPOSITION: 1. The patient was taken out into the discharge recovery area where he will be discharged home once discharge criteria have been met. 2. Follow up in the [facility] office in 2-4 weeks. I attest to the content of the Intraoperative Record and any orders documented therein. Any exception s are noted below.
== END | disposition home or self-care (01) ==
LOC: X.SURG 14:14
PROVIDERS: ATTEND Physical Medicine & Rehabilitation
DX: M48.07 Spinal stenosis, lumbosacral region (principal); C25.9 Malignant neoplasm of pancreas, unspecified; Z79.82 Long term (current) use of aspirin; Z79.4 Long term (current) use of insulin; Z79.84 Long term (current) use of oral hypoglycemic drugs; Z79.02 Long term (current) use of antithrombotics/antiplatelets

== ENCOUNTER → 2017-04-15 | Outpatient (CLI) | payer OTHER ==
[~2017-04-15] MED LIST changes: -LIDOCAINE HCL 1% MPF 5 ML VIAL ONE; +OPTIRAY 320 IV PRN; -SODIUM CHLORIDE 0.9% INJ 10 ML VIAL ONE
--- NOTE | 2017-04-15 16:56 | DIAGNOSTIC IMAGING REPORT ---
CHEST CT WITH CONTRAST CT DOSE: 1487.06 mGycm HISTORY: Pancreatic cancer. Follow-up. TECHNIQUE: Multiaxial CT images of the chest were performed following the intravenous administration of contrast. A dose lowering technique was utilized adhering to the principles of ALARA. COMPARISON: Chest CT 12/27/2016. FINDINGS:The central airways are patent. No pleural effusions. No pneumothorax. There are few scattered pulmonary nodules which are not significantly changed in size. Dominant nodule within the right lower lobe continues to measure 1.8 cm. No new pulmonary nodules identified. No suspicious lytic or blastic osseous lesions. Right subclavian Port-A-Cath terminates in the distal SVC. No evidence for an aortic dissection. The central pulmonary arteries are patent. Pancreatic mass is again noted. No mediastinal or hilar lymphadenopathy. A left humeral neck fracture is again noted. IMPRESSION: 1. Stable pulmonary nodules likely representing metastatic disease. 2. A left humeral neck fracture is again noted. 3. Please refer to the same day abdomen and pelvis CT for further evaluation of the pancreatic mass. Electronically signed by: Cuco Zaragoza M.D. 04/15/2017 4:55 PM Dictated Date/Time: 04/15/2017 4:48 PM
--- NOTE | 2017-04-15 17:03 | DIAGNOSTIC IMAGING REPORT ---
ABDOMEN AND PELVIS CT WITH IV AND ORAL CONTRAST CT DOSE: HISTORY: Pancreatic cancer. Follow-up. TECHNIQUE: Multiaxial CT images of the abdomen and pelvis were performed following the use of intravenous and oral contrast. A dose lowering technique was utilized adhering to the principles of ALARA. COMPARISON STUDY: Abdomen and pelvis CT 12/27/2016. FINDINGS: No significant change in the 7 x 5 cm pancreatic head mass which demonstrates vascular encasement. There are severe narrowing of the portal vein and proximal superior mesenteric vein. There appears to be obstruction of the splenic vein, unchanged. This also encases the celiac artery and its major branches as well as partial encasement of the superior mesenteric artery. Multiple venous collaterals within the central mesentery. No change in 1.8 cm pulmonary nodule within the base of the right lower lobe. No hepatic or splenic masses. The adrenal glands, gallbladder, and kidneys are unremarkable. Bilobed 2.2 cm lipoma within the third portion of the duodenum. Tiny fat-containing umbilical hernia. The bladder is unremarkable. Tiny fat-containing bilateral inguinal hernias. No evidence for bowel obstruction. Moderate stool seen throughout the colon. Normal appendix. IMPRESSION: 1. No significant change in the 7 x 5 cm pancreatic head mass which demonstrates vascular encasement. 2. Stable 11 mm right lower lobe pulmonary nodule likely representing metastatic disease. Electronically signed by: Cuco Zaragoza M.D. 04/15/2017 5:02 PM Dictated Date/Time: 04/15/2017 4:55 PM
== END | disposition home or self-care (01) ==
LOC: C.CTS 16:04
PROVIDERS: ATTEND Internal Medicine Hematology & Oncology
DX: C25.1 Malignant neoplasm of body of pancreas (principal)

== ENCOUNTER → 2017-04-17 | Outpatient (CLI) | payer OTHER ==
[~2017-04-17] MED LIST changes: -OPTIRAY 320 IV PRN
== END | disposition home or self-care (01) ==
LOC: C.RDSM 15:50
PROVIDERS: ATTEND Orthopaedic Surgery Sports Medicine
DX: Z09 Encounter for follow-up examination after completed treatment for conditions other than malignant neoplasm (principal); M25.512 Pain in left shoulder

== ENCOUNTER → 2017-05-28 | Outpatient (CLI) | payer OTHER | END | disposition home or self-care (01) | LOC: C.RDSM 09:56 | PROVIDERS: ATTEND Orthopaedic Surgery Sports Medicine | DX: Z09 Encounter for follow-up examination after completed treatment for conditions other than malignant neoplasm (principal) ==

== ENCOUNTER → 2017-06-17 | Outpatient (CLI) | payer OTHER ==
--- NOTE | 2017-06-17 14:34 | DIAGNOSTIC IMAGING REPORT ---
PELVIS 1 OR 2 VIEWS HISTORY: 71 years-old Male RIGHT HIP PAIN acute right hip pain without known injury COMPARISON: Pelvis and hip radiographs 12/31/2016 TECHNIQUE: AP view of the pelvis FINDINGS: Moderate degenerative changes of the bilateral femoral acetabular joints. No acute fracture or dislocation identified. Pelvic ring is intact. Vascular calcifications are noted. IMPRESSION: Moderate bilateral hip osteoarthritis without acute fracture or dislocation. The above report was generated using voice recognition software. It may contain grammatical, syntax or spelling errors. Electronically signed by: Michele Barksdale M.D. 06/17/2017 2:33 PM Dictated Date/Time: 06/17/2017 2:32 PM
== END | disposition home or self-care (01) ==
LOC: C.RDSM 11:34
PROVIDERS: ATTEND Physician Assistant
DX: M25.551 Pain in right hip (principal)

== ENCOUNTER → 2017-07-14 | Outpatient (CLI) | payer OTHER ==
[~2017-07-14] MED LIST changes: +OPTIRAY 320 IV PRN
--- NOTE | 2017-07-14 15:49 | DIAGNOSTIC IMAGING REPORT ---
CT ABD/PELVIS IV AND ORAL CONT CLINICAL HISTORY: PANCREATIC CANCER COMPARISON STUDY: 04/15/2017 TECHNIQUE: Following the IV administration of 93 mL of Optiray-320, CT scan of the abdomen and pelvis was performed from the lung bases to the proximal femurs. Images are reviewed in the axial, sagittal, and coronal planes. IV contrast was administered without complication. A dose lowering technique was utilized adhering to the principles of ALARA. CT DOSE: 1216.44 mGy.cm FINDINGS: Lower chest: There is a stable 19 x 9 mm pleural-based right lower lobe pulmonary nodule. Liver: There is mild hepatic steatosis. No focal masses are visualized. Gallbladder: Unremarkable. Spleen: Normal in size and attenuation. Pancreas: There is a pancreatic head mass measuring 7.5 x 5.5 cm. This remain similar in size to the preceding study. There is encasement of the celiac, hepatic, splenic arteries. 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 There is encasement of superior mesenteric vein. Adrenal glands: Unremarkable. Kidneys: There is symmetric renal cortical enhancement. The kidneys are normal in size without hydronephrosis. Bowel: There are no transition zones indicate bowel obstruction. There is no acute diverticulitis. There are no findings to indicate acute appendicitis. Peritoneum: There is no intraperitoneal free air or abdominal ascites. Vasculature: There are peripancreatic varices, likely secondary to the above-mentioned areas of vascular occlusion Adenopathy: None. Pelvic viscera: There is mild bladder wall thickening. Skeletal structures: No destructive osseous lesions are seen. IMPRESSION: 1. Essentially stable 7.5 x 5.5 cm pancreatic head mass with vascular encasement and areas of vascular occlusion as described above 2. Stable 19 x 9 mm right lower lobe pulmonary nodule 3. Mild bladder wall thickening 4. No hepatic metastasis identified Electronically signed by: Ricardo Arce M.D. 07/14/2017 3:48 PM Dictated Date/Time: 07/14/2017 3:39 PM
--- NOTE | 2017-07-14 17:14 | DIAGNOSTIC IMAGING REPORT ---
CT OF THE CHEST WITH IV CONTRAST CLINICAL HISTORY: Pancreatic cancer. COMPARISON STUDY: Chest CT April 15, 2017. TECHNIQUE: Following IV administration of 93 mL of Optiray-320, helical axial images of the chest were obtained. Sagittal and coronal reconstructions were viewed as well as maximal intensity projections on an independent 3-D workstation. A dose lowering technique was utilized adhering to the principles of ALARA. FINDINGS: No enlarged axillary, mediastinal or hilar lymph nodes are present. The size of the heart is normal. There is no pericardial effusion. The central airways are patent. There is no consolidation to suggest pneumonia. A 1 cm solid and groundglass lingular nodule shown image 135 of 321 has not significantly changed in size since exam of April 15, 2017 but has slightly increased in size from earlier exam of March 06, 2016. A 1.9 cm irregular nodule within the lateral basilar segment of the right lower lobe shown on image 191 is similar to prior exam of April 15, 2017 but increased in size from earlier exams. No new nodules are present. A 5 mm subpleural left lower lobe nodule shown image 98 is stable from earlier studies and benign given stability. No suspicious osseous lesions are present. The abdomen and pelvis will be reported separately. IMPRESSION: 1. Stable pulmonary nodules since CT of April 15, 2017. These suggest metastatic disease. No new nodules identified. 2. No thoracic lymphadenopathy. Electronically signed by: Jorge L Garcia M.D. 07/14/2017 5:13 PM Dictated Date/Time: 07/14/2017 3:26 PM
== END | disposition home or self-care (01) ==
LOC: C.CTS 14:47
PROVIDERS: ATTEND Internal Medicine Hematology & Oncology
DX: C25.1 Malignant neoplasm of body of pancreas (principal); R91.1 Solitary pulmonary nodule

== ENCOUNTER → 2017-08-21 | Outpatient (CLI) | payer OTHER ==
[~2017-08-21] MED LIST changes: -OPTIRAY 320 IV PRN
== END | disposition home or self-care (01) ==
LOC: C.RDSM 20:21
PROVIDERS: ATTEND Orthopaedic Surgery Sports Medicine
DX: S42.295D Other nondisplaced fracture of upper end of left humerus, subsequent encounter for fracture with routine healing (principal); X58.XXXD Exposure to other specified factors, subsequent encounter

== ENCOUNTER → 2017-08-26 | Outpatient (CLI) | payer OTHER | END | disposition home or self-care (01) | LOC: C.LABSPEC 17:14 | PROVIDERS: ATTEND Urology | DX: N39.0 Urinary tract infection, site not specified (principal) ==

== ENCOUNTER → 2017-09-11 | Outpatient (CLI) | payer OTHER ==
--- NOTE | 2017-09-11 14:18 | DIAGNOSTIC IMAGING REPORT ---
Brain MRI WITHOUT CONTRAST HISTORY: G31.84 MCI (mild cognitive impairment) with memory [id number] TECHNIQUE: Multiplanar multisequence MRI of the brain was performed without the use of contrast. COMPARISON STUDY: Brain MRI 08/08/2015. FINDINGS: There is no mass, hematoma, midline shift, or acute infarct. Small retention cysts within the maxillary sinuses. The mastoid air cells are clear. The ventricles and sulci demonstrate mild age-related involutional changes. There are again noted a few foci of T2 hyperintensity seen within the periventricular and subcortical white matter are nonspecific but suggestive of minimal microvascular ischemic changes. The major vascular flow voids at the skull base are well-maintained. IMPRESSION: No significant change compared to the prior study. No acute intracranial abnormality. Electronically signed by: Cuco Zaragoza M.D. 09/11/2017 2:16 PM Dictated Date/Time: 09/11/2017 1:59 PM
== END | disposition home or self-care (01) ==
LOC: C.MRI 12:13
PROVIDERS: ATTEND Psychiatry & Neurology Neurology
DX: G31.84 Mild cognitive impairment of uncertain or unknown etiology (principal)

== ENCOUNTER 2017-09-29 14:29 | Inpatient (IN) | payer OTHER ==
[~2017-09-29] VITALS: Ht 175.3 cm; Wt 82.9 kg
[~2017-09-29 14:29] MED LIST changes: +DONE1TAB25 PO; +FINA5TAB PO; -GABA-113 PO; +GABA-1220 PO; +INSDGI SQ; -INSUINJ4 SC; +MELO-84 PO; -NRN/300 PO; +ONDA-170 PO; -ONDA8TAB6 PO
--- NOTE | 2017-09-29 14:57 | EMERGENCY ROOM VISIT NOTE ---
History First contact with patient: 14:32 Chief Complaint: WEAKNESS Stated Complaint: LETHARGIC Nursing Triage Summary: Pt brought ALS from home for c/o lethargy. Pt was found unresponsive in chair at home, unresponsive for approx 15 min. Hypotensive 73/46 initially for EMS, SBP >100 after 1L of NSS and pt more responsive, answering questions appropriately. BSG 163. Pt reports bright red blood in stools x 2 weeks, reports pt having n/v since and abdominal pain yesterday. Pt denies pain, SOB, n/v at arrival to ED. Family at ED at time of arrival. History of Present Illness The patient is a 72 year old male who presents to the Emergency Room with complaints of altered mental status earlier today. History was obtained from primarily. She reports the patient has had decreased oral intake over the last 4 days. She reports he vomited twice 4 days ago and since then has just had poor PO intake of both food and water. She reports earlier today they were talking and he was sitting in a chair then became unresponsive. She shook him a few times and then called the ambulance. She checked his blood sugar while waiting for them and it was 145. BP was in the 70's systolic upon arrival of ALS. She reports he woke up after ALS gave him an IV. He received a liter of IV fluids and was more responsive. Overall he was unresponsive for about 15 minutes. denies him having any abnormal movements, tongue biting, or urinary incontinence. He has a hx of pancreatic cancer which is stable, and monitored by Dr. Derrick Gomez. He has recently had blood in his urine (not stool, which pt had reported) over the last 2 weeks, and his then stopped meloxicam and this improved. He has had vague abdominal pain recently. reports his stools have been normal and denies any change to this or any blood in the stool. reports he has still been compliant with his medications, including insulin and antiplatelet agents. Currently, the patient is awake and alert. He reports mild pain in his back and hip. Review of Systems See HPI for pertinent positives & negatives. A total of 10 systems reviewed and were otherwise negative. Past Medical/Surgical History Medical Problems: (1) Cataract Nos (2) Diab Tessie Wo Compl, Type Ii Or Unspec Type, Not Uncntrld (3) Hypertension Nos (4) Malig Nikhil Pancreas Nos (5) Pancreatic adenocarcinoma (6) Primary pancreatic cancer Family History Diabetes mellitus Heart disease Hypertension Social History Smoking Status: Former Smoker Alcohol Use: occasionally Marital Status: Housing Status: lives with family Occupation Status: retired Current/Historical Medications Scheduled Aspirin (Aspirin), 81 MG PO QAM Atorvastatin (Lipitor), 10 MG PO Q2D Carbidopa/Levodopa (Sinemet 25MG/250MG), 1.5 TAB PO QID Carvedilol (Carvedilol), 6.25 MG PO BIDM Clopidogrel (Plavix), 75 MG PO QAM Donepezil Hydrochloride (Donepezil Hcl), 5 MG PO HS Finasteride (Proscar), 5 MG PO QAM Gabapentin (Neurontin), 300 MG PO AMPM Gabapentin (Neurontin), 600 MG PO HS Insulin Glargine (Lantus), 25-40 UNITS SQ HS Insulin Human Lispro (Humalog), 8-20 UNIT SQ ACHS Metformin HCl (Metformin HCl), 500 MG PO BID Pantoprazole (Protonix), 40 MG PO QAM Ropinirole (Requip), 0.25 MG PO TID Silodosin (Rapaflo), 8 MG PO QPM Scheduled PRN Acetaminophen (Tylenol Arthritis Ext Rel), 650 MG PO Q8H PRN for Pain Furosemide (Lasix), 20 MG PO DAILY PRN for FLUID RETENTION Lorazepam (Ativan), 0.5 MG PO DAILY PRN for Anxiety Allergies Codeine Physical Exam Vital Signs Date Time Temp Pulse Resp B/P (MAP) Pulse Ox O2 Delivery O2 Flow Rate FiO2 09/29/17 16:06 64 20 93/58 97 Room Air 09/29/17 15:05 98 Room Air 09/29/17 14:37 68 09/29/17 14:34 36.4 70 20 100/63 97 Room Air Physical Exam GENERAL: Awake, alert, laying comfortably, in no acute distress HENT: Normocephalic, atraumatic. Oropharynx dry. EYES: Normal conjunctiva. Sclera non-icteric. NECK: Supple. No nuchal rigidity. FROM. No JVD. RESPIRATORY: Clear to auscultation. CARDIAC: Regular rate, normal rhythm. Extremities warm and well perfused. Pulses equal. ABDOMEN: Soft, non-distended. Midline soft mass to center of abdomen. No tenderness to palpation. No rebound or guarding. No masses. RECTAL: Deferred. MUSCULOSKELETAL: Chest examination reveals no tenderness. The back is symmetrical on inspection without obvious abnormality. There is no CVA tenderness to palpation. No joint edema. LOWER EXTREMITIES: Calves are equal size bilaterally and non-tender. No edema. No discoloration. NEURO: Normal sensorium. No sensory or motor deficits noted. SKIN: No rash or jaundice noted. Medical Decision & Procedures Laboratory Results 09/29/17 14:59 Red Blood Count 4.68, Mean Corpuscular Volume 89.7, Mean Corpuscular Hemoglobin 30.3, Mean Corpuscular Hemoglobin Concent 33.8, Mean Platelet Volume 10.6, Neutrophils (%) (Auto) 60.1, Lymphocytes (%) (Auto) 24.1, Monocytes (%) (Auto) 15.2, Eosinophils (%) (Auto) 0.3, Basophils (%) (Auto) 0.1, Neutrophils # (Auto ) 5.16, Lymphocytes # (Auto) 2.07, Monocytes # (Auto) 1.31, Eosinophils # (Auto ) 0.03, Basophils # (Auto) 0.01 09/29/17 14:59 Test 09/29/17 14:43 09/29/17 14:59 Bedside Glucose 145 mg/dl (70-99) White Blood Count 8.60 K/uL (4.8-10.8) Red Blood Count 4.68 M/uL (4.7-6.1) Hemoglobin 14.2 g/dL (14.0-18.0) Hematocrit 42.0 % (42-52) Mean Corpuscular Volume 89.7 fL (80-100) Mean Corpuscular Hemoglobin 30.3 pg (25-34) Mean Corpuscular Hemoglobin Concent 33.8 g/dl (32-36) Platelet Count 196 K/uL (130-400) Mean Platelet Volume 10.6 fL (7.4-10.4) Neutrophils (%) (Auto) 60.1 % Lymphocytes (%) (Auto) 24.1 % Monocytes (%) (Auto) 15.2 % Eosinophils (%) (Auto) 0.3 % Basophils (%) (Auto) 0.1 % Neutrophils # (Auto) 5.16 K/uL (1.4-6.5) Lymphocytes # (Auto) 2.07 K/uL (1.2-3.4) Monocytes # (Auto) 1.31 K/uL (0.11-0.59) Eosinophils # (Auto) 0.03 K/uL (0-0.5) Basophils # (Auto) 0.01 K/uL (0-0.2) RDW Standard Deviation 45.1 fL (36.4-46.3) RDW Coefficient of Variation 13.7 % (11.5-14.5) Immature Granulocyte % (Auto) 0.2 % Immature Granulocyte # (Auto) 0.02 K/uL (0.00-0.02) Prothrombin Time 11.2 SECONDS (9.0-12.0) Prothromb Time International Ratio 1.1 (0.9-1.1) Activated Partial Thromboplast Time 25.6 SECONDS (21.0-31.0) Partial Thromboplastin Ratio 1.0 Anion Gap 9.0 mmol/L (3-11) Est Creatinine Clear Calc Drug Dose 48.8 ml/min Estimated GFR () 60.6 Estimated GFR (Non- 52.3 BUN/Creatinine Ratio 21.1 (10-20) Calcium Level 8.6 mg/dl (8.5-10.1) Phosphorus Level 3.4 mg/dl (2.5-4.9) Magnesium Level 1.9 mg/dl (1.8-2.4) Total Bilirubin 0.8 mg/dl (0.2-1) Aspartate Amino Transf (AST/SGOT) 10 U/L (15-37) Alanine Aminotransferase (ALT/SGPT) 9 U/L (12-78) Alkaline Phosphatase 94 U/L (45-117) Total Protein 7.0 gm/dl (6.4-8.2) Albumin 3.5 gm/dl (3.4-5.0) Globulin 3.5 gm/dl (2.5-4.0) Albumin/Globulin Ratio 1.0 (0.9-2) Lipase 57 U/L (73-393) Medications Administered Medications (Trade) Dose Ordered Sig/Dez Route Start Time Stop Time Status Last Admin Dose Admin Sodium Chloride 1,000 ml @ 999 mls/hr Q1H1M IV 09/29/17 15:00 09/29/17 16:00 DC 09/29/17 14:57 999 MLS/HR ED Course 2:45 PM: I evaluated the patient in room C4. A complete history and physical exam were performed. I discussed the case with Dr. Nicholas, Attending physician. 3:00 PM: Dr. Nicholas also evaluated the patient. I ordered a CBC, CMP, PT/INR, PTT, Type & Screen, CXR, CT Head without contrast, CT Abd/Pelvis with IV Contrast. I also ordered 1 L NS bolus. 3:48 PM: I checked on the patient, he was tolerating PO ice chips. 4:52 PM: I discussed the case with Dr. Borges of the Hospitalist service. The patient will be admitted for further monitoring and treatment. Medical Decision 72 yo M with pancreatic cancer, type 2 DM, coronary artery disease, and HTN who presents with altered mental status. Differential includes: hypotension, arrhythmia, infection, stroke, sepsis, electrolyte abnormality. He had an IV placed and labs drawn. He was noted to be hypotensive with ALS arrived at his house, then received 1L of IV fluids, and upon arrival to the ED this had improved. He was able to tolerate PO ice chips. His mental status was back at baseline. CT Head and Abd/Pelvis were completed and unremarkable, apart from a mild increase in his metastatic disease in the RUQ. He reported feeling somewhat better but not able to tolerate further PO intake than ice chips, and was unable to get up on his own. He agreed to be admitted to the hospital for further management of his hypotension. This case was discussed with Dr. Borges, and Dr. River of the Inpatient Hospitalist Team. Impression Primary Impression: Altered mental status Additional Impression: Primary pancreatic cancer with metastasis to other site Departure Information Dispostion Being Evaluated By Hospitalist Condition GOOD Referrals Gerald Gardner M.D. (PCP) Patient Instructions [facility] Problem Qualifiers
[2017-09-29] MEDS ORDERED: SODIUM CHLORIDE 0.9% 1000ML 1,000 ML IV SCH ×2 (15:00→19:54)
--- NOTE | 2017-09-29 15:00 | EMERGENCY ROOM VISIT NOTE ---
ED Visit Note First contact with patient: 14:32 Resident Physician Supervision Note: Dr. Rachel Miramontes was resident physician during care of patient. I separately evaluated patient and did history and exam. I discussed the case with the resident and generally agree with the findings and plan. 72 yr old male with longstanding pancreatic CA and dementia arrives following syncopal episode. 2 weeks blood in urine and just finished round abx for UTI. He has had 4 days worsening fatigue, lack of appetite and weakness. Periodically complaining of abdominal pain over last 4 days. Chronic low back pain unchanged. Syncope this evening preceded by patient slumping to his left. EMS not SBP 70s, BSG 160s. Patient came too with IV placement by EMS. Patient back to baseline per family. He is in no distress and breathing comfortably. Exam is benign other than he is tired appearing and demented. He has no TTP abdomen though does have small easily reducible umbilical hernia which notes has been protruding more than usual. Vitals OK right now on NC O2. Looking in improved with fluids. Suspect dehydration much of this though will need further work-up to determine no other cause. Diagnosis: Syncope Dehydration Documented By: Santiago Nicholas MD
[2017-09-29 15:14] LABS: BASO % 0.1 %; BASO ABS # 0.01 K/uL (0-0.2); EOS % 0.3 %; EOS ABS # 0.03 K/uL (0-0.5); HEMOGLOBIN 14.2 g/dL (14.0-18.0); IG# 0.02 K/uL (0.00-0.02); LYMPH % 24.1 %; LYMPH ABS # 2.07 K/uL (1.2-3.4); MEAN CELL VOLUME 89.7 fL (80-100); MEAN CORPUSCULAR HEMOGLOBIN 30.3 pg (25-34); MEAN CORPUSCULAR HGB CONC 33.8 g/dl (32-36); MEAN PLATELET VOLUME 10.6 fL (7.4-10.4); MONO % 15.2 %; MONO ABS # 1.31 K/uL (0.11-0.59); NEUT % 60.1 %; NEUT ABS # 5.16 K/uL (1.4-6.5); PLATELET COUNT 196 K/uL (130-400); RED CELL DISTRIBUTION WIDTH CV 13.7 % (11.5-14.5); RED CELL DISTRIBUTION WIDTH SD 45.1 fL (36.4-46.3)
[2017-09-29] MEDS ORDERED: OPTIRAY 320 IV PRN (15:15)
--- NOTE | 2017-09-29 15:16 | DIAGNOSTIC IMAGING REPORT ---
CHEST ONE VIEW PORTABLE CLINICAL HISTORY: 72 years-old Male presenting with ALTERED MENTAL STATUS. TECHNIQUE: Portable upright AP view of the chest was obtained. COMPARISON: 02/18/2017. FINDINGS: Right subclavian Mediport terminates at the superior cavoatrial junction. Atherosclerosis of aortic arch. Cardiac silhouette normal in size. Lungs and pleural spaces clear. Degenerative changes of the thoracic spine. Redemonstration of the mildly displaced and impacted left humeral neck fracture, which is chronic. Upper abdomen normal. IMPRESSION: 1. No acute cardiopulmonary disease. 2. Redemonstration of the chronic mildly displaced, impacted left humeral neck fracture. Electronically signed by: Gerald Vera M.D. 09/29/2017 3:15 PM Dictated Date/Time: 09/29/2017 3:14 PM
[2017-09-29 15:23] LABS: INR 1.1 (0.9-1.1); PTT PATIENT 25.6 SECONDS (21.0-31.0)
[2017-09-29 15:31] LABS: ALBUMIN 3.5 gm/dl (3.4-5.0); CALCIUM 8.6 mg/dl (8.5-10.1); CREATININE 1.33 mg/dl (0.60-1.40); POTASSIUM 3.8 mmol/L (3.5-5.1)
[2017-09-29 15:34] LABS: PHOSPHORUS 3.4 mg/dl (2.5-4.9)
[2017-09-29] MEDS ORDERED: PANT40TA PO (16:06)
[2017-09-29] MEDS ORDERED: GABA-113 PO ×2 (16:07→16:09)
--- NOTE | 2017-09-29 16:14 | DIAGNOSTIC IMAGING REPORT ---
CT OF THE ABDOMEN AND PELVIS WITH CONTRAST CLINICAL HISTORY: Abdominal pain. Poor oral intake. History of pancreatic cancer. COMPARISON STUDY: CT of the abdomen and pelvis July 14, 2017. TECHNIQUE: Following IV administration of 117 mL of Optiray-320, axial images of the abdomen and pelvis were obtained from the lung bases to the proximal femurs. Images were reviewed in the axial, sagittal, and coronal planes. IV contrast was administered without complication. A dose lowering technique was utilized adhering to the principles of ALARA. CT DOSE: 495.48 mGy.cm FINDINGS: A 2.3 cm right lower lobe nodule is similar to CT of July 2017. No hepatic lesions are present. The spleen, adrenal glands and kidneys are unremarkable. The known hypodense pancreatic head mass is similar to CT of July 2017. This mass measures 6.5 x 6.3 cm and results in severe narrowing of the portosplenic confluence. The splenic vein is occluded. This is unchanged. Additional vessel encasement is unchanged since prior CT. There is no evidence for a bowel obstruction. There is no pneumatosis, free air or portal venous gas. Mild appendiceal dilatation is unchanged per there is no evidence for acute appendicitis. A 1.3 cm omental implant within the right upper quadrant has increased in size. Upper abdominal collaterals are unchanged. No suspicious osseous lesions are present. There are multiple healing bilateral lower rib fractures as well as a healing fracture of the superior endplate of S1. IMPRESSION: 1. No significant change in the pancreatic head mass since CT of July 14, 2017. Stable vessel encasement, as described above. 2. No bowel obstruction. 3. Increase in size of a 1.3 cm omental implant within the right upper quadrant suggestive of metastatic disease. 4. No significant change in a 2.3 cm right lower lobe nodule which likely reflect metastatic disease. 5. Multiple healing bilateral lower rib fractures and a healing fracture of the superior endplate of S1. Electronically signed by: Jorge L Garcia M.D. 09/29/2017 4:13 PM Dictated Date/Time: 09/29/2017 4:00 PM
--- NOTE | 2017-09-29 16:18 | DIAGNOSTIC IMAGING REPORT ---
CT OF THE HEAD WITHOUT CONTRAST CLINICAL HISTORY: Altered mental status. History of pancreatic cancer. COMPARISON STUDY: MRI of the brain September 11, 2017. CT DOSE: 614.27 mGy.cm TECHNIQUE: Helical axial images of the head were obtained without IV contrast. Automated exposure control was utilized for the study. A dose lowering technique was utilized adhering to the principles of ALARA. FINDINGS: No acute intracranial hemorrhage, midline shift or mass effect is present. Ventricular system is unremarkable for age. Basilar cisterns are patent. There are no extra-axial collections. There are no findings to suggest acute dural sinus thrombosis or acute territorial infarct. Soft tissue thickening of the right occipital scalp is unchanged since PET/CT of July 19, 2013. This is likely benign. There are no suspicious osseous lesions. Visualized portions of the sinuses and mastoid air cells are clear. IMPRESSION: No acute intracranial findings. Electronically signed by: Jorge L Garcia M.D. 09/29/2017 4:17 PM Dictated Date/Time: 09/29/2017 3:54 PM
[2017-09-29] MEDS ORDERED: MAGNESIUM HYDROXIDE SUSP 30 ML UDC PO PRN (17:30)
[2017-09-29] MEDS ORDERED: POLYETHYLENE (MIRALAX) 17 GM PACK PO PRN (17:30)
[2017-09-29] MEDS ORDERED: ALUMINUM/MAGNESIUM/SIMETH (MAALOX MAX) 30 ML UDC PO PRN (17:30)
[2017-09-29] MEDS ORDERED: LORAZEPAM 0.5 MG TAB PO PRN (17:30)
[2017-09-29] MEDS ORDERED: ACETAMINOPHEN 325 MG TAB PO PRN (17:30)
[2017-09-29] MEDS ORDERED: ONDANSETRON INJ 2 MG/ML 2 ML VIAL IV PRN (17:30)
[2017-09-29] MEDS ORDERED: FUROSEMIDE 20 MG TAB PO PRN (17:30)
[2017-09-29] MEDS ORDERED: NITROGLYCERIN 0.4 MG SL PER TAB CHARGE SL PRN (17:30)
[2017-09-29] MEDS ORDERED: GLUCOSE 40% GEL 15 GM TUBE PO PRN (18:00)
[2017-09-29] MEDS ORDERED: GLUCAGON FOR INJ 1 MG VIAL SQ PRN (18:00)
[2017-09-29] MEDS ORDERED: DEXTROSE 50% 50 ML SYR IV PRN (18:00)
[2017-09-29] MEDS ORDERED: GLUCOSE 10 TABS/TUBE PO PRN (18:00)
--- NOTE | 2017-09-29 18:16 | History and Physical ---
History & Physical Date & Time of Service: Sep 29, 2017 at 17:36 Chief Complaint: Lethargic Primary Care Physician: Gerald Gardner M.D. History of Present Illness Source: patient, family, spouse, hospital records This is a 72 y/o M with a pmh of Pancreatic ca s/p Chemo, HTN, CAD s/p stent, DM , parkinson's who presents after an episode of unresponsiveness. His reports that he was sitting in his chair and started slumping over to his left side. She asked him to support himself but due to weakness of his left arm from a previous fracture, he was unable to hold himself up. notes that she was attempting to arouse him; however, was not successful. He was unarousable for about 15 mins. She did call ALS after shaking him a few times. She was able to check his blood sugar while waiting for ALS, and it was 145. When ALS arrived, his b/p was 70/40s. He was given IVF's and started becoming more alert/ responsive. Patient is currently at baseline mentation. Rarely has episodes of confusion 2/2 parkinson's The patient denies any dizziness, chest pain or shortness of breath prior to the episode. He was largely unaware of the events preceding his unresponsive episode. The reports that he has had a few days of nausea/vomiting/ diarrhea. This cleared up over the last 2 days however, he has had low appetite. She has been forcing liquids/jello but he has not been eating or drinking much. denies any seizure like activity. There was no loss of bowel /bladder function apart from his baseline. They also report ongoing hematuria that is in the process of being evaluated. He was meant to have a cystoscopy in the coming weeks. Has chronic back and hip pain. The also reports a history of abdominal pain over the last few days but has since resolved. Ex smoker- quit 40 years ago, smoked 4 ppd for 20 years Past Medical/Surgical History Medical Problems: (1) Cataract Nos (2) Closed fracture of neck of right humerus (3) Closed fracture of neck of right humerus (4) Constipation (5) Dehydration (6) Diab Tessie Wo Compl, Type Ii Or Unspec Type, Not Uncntrld (7) Epigastric abdominal pain (8) Fall (9) Fall (10) Hypertension Nos (11) Malig Nikhil Pancreas Nos (12) Pancreatic adenocarcinoma (13) Primary pancreatic cancer (14) Primary pancreatic cancer with metastasis to other site (15) Unresponsive episode (16) Urinary retention (17) Vomiting Family History Diabetes mellitus Heart disease Hypertension Social History Smoking Status: Former Smoker Marital Status: Housing status: lives with family Occupational Status: retired Immunizations History of Influenza Vaccine: Yes History of Tetanus Vaccine?: utd History of Pneumococcal: No History of Hepatitis B Vaccine: No Allergies Coded Allergies: Codeine (Verified Adverse Reaction, Mild, GI SYMPTOMS, 09/18/17) nausea Home Medications Scheduled Aspirin (Aspirin), 81 MG PO QAM Atorvastatin (Lipitor), 10 MG PO Q2D Carbidopa/Levodopa (Sinemet 25MG/250MG), 1.5 TAB PO QID Carvedilol (Carvedilol), 6.25 MG PO BIDM Clopidogrel (Plavix), 75 MG PO QAM Donepezil Hydrochloride (Donepezil Hcl), 5 MG PO HS Finasteride (Proscar), 5 MG PO QAM Gabapentin (Neurontin), 300 MG PO AMPM Gabapentin (Neurontin), 600 MG PO HS Insulin Glargine (Lantus), 25-40 UNITS SQ HS Insulin Human Lispro (Humalog), 8-20 UNIT SQ ACHS Metformin HCl (Metformin HCl), 500 MG PO BID Pantoprazole (Protonix), 40 MG PO QAM Ropinirole (Requip), 0.25 MG PO TID Silodosin (Rapaflo), 8 MG PO QPM Scheduled PRN Acetaminophen (Tylenol Arthritis Ext Rel), 650 MG PO Q8H PRN for Pain Furosemide (Lasix), 20 MG PO DAILY PRN for FLUID RETENTION Lorazepam (Ativan), 0.5 MG PO DAILY PRN for Anxiety Review of Systems Constitutional: No fever, No chills Eyes: No worsening of vision, No diplopia ENT: No hearing loss, No trouble swallowing Respiratory: No cough, No sputum, No shortness of breath, No dyspnea on exertion, No dyspnea at rest Cardiovascular: No chest pain, No orthopnea, No edema, No palpitations Abdomen: No pain, No nausea, No vomiting, No diarrhea, No constipation Musculoskeletal: + joint pain, + muscle pain, No calf pain Genitourinary - Male: + hematuria, + urinary frequency, + urinary retention, + urinary incontinence, No dysuria Neurologic: No paralysis, No numbness/tingling Physical Exam Vital Signs Date Time Temp Pulse Resp B/P (MAP) Pulse Ox O2 Delivery O2 Flow Rate FiO2 09/29/17 16:55 63 18 98/54 95 Room Air 09/29/17 16:06 64 20 93/58 97 Room Air 09/29/17 15:05 98 Room Air 09/29/17 14:37 68 09/29/17 14:34 36.4 70 20 100/63 97 Room Air General Appearance: no apparent distress Eyes: PERRL, EOMI ENT: hearing grossly normal Neck: supple, no JVD Respiratory/Chest: lungs clear, normal breath sounds, no respiratory distress, no accessory muscle use Cardiovascular: regular rate, rhythm, no murmur, normal peripheral pulses Abdomen/GI: normal bowel sounds, non tender, soft Back: no CVA tenderness Extremities/Musculoskelatal: no calf tenderness, no pedal edema, normal range of motion Neurologic/Psych: underground repairer II-XII nml as tested, no motor/sensory deficits, alert, normal mood/affect, normal reflexes, oriented x 3 Diagnostics Laboratory Results Results Past 24 Hours Test 09/29/17 14:43 09/29/17 14:59 Range/Units Bedside Glucose 145 70-99 mg/dl White Blood Count 8.60 4.8-10.8 K/uL Red Blood Count 4.68 4.7-6.1 M/uL Hemoglobin 14.2 14.0-18.0 g/dL Hematocrit 42.0 42-52 % Mean Corpuscular Volume 89.7 80-100 fL Mean Corpuscular Hemoglobin 30.3 25-34 pg Mean Corpuscular Hemoglobin Concent 33.8 32-36 g/dl Platelet Count 196 130-400 K/uL Mean Platelet Volume 10.6 7.4-10.4 fL Neutrophils (%) (Auto) 60.1 % Lymphocytes (%) (Auto) 24.1 % Monocytes (%) (Auto) 15.2 % Eosinophils (%) (Auto) 0.3 % Basophils (%) (Auto) 0.1 % Neutrophils # (Auto) 5.16 1.4-6.5 K/uL Lymphocytes # (Auto) 2.07 1.2-3.4 K/uL Monocytes # (Auto) 1.31 0.11-0.59 K/uL Eosinophils # (Auto) 0.03 0-0.5 K/uL Basophils # (Auto) 0.01 0-0.2 K/uL RDW Standard Deviation 45.1 36.4-46.3 fL RDW Coefficient of Variation 13.7 11.5-14.5 % Immature Granulocyte % (Auto) 0.2 % Immature Granulocyte # (Auto) 0.02 0.00-0.02 K/uL Prothrombin Time 11.2 9.0-12.0 SECONDS Prothromb Time International Ratio 1.1 0.9-1.1 Activated Partial Thromboplast Time 25.6 21.0-31.0 SECONDS Partial Thromboplastin Ratio 1.0 Sodium Level 134 136-145 mmol/L Potassium Level 3.8 3.5-5.1 mmol/L Chloride Level 97 98-107 mmol/L Carbon Dioxide Level 28 21-32 mmol/L Anion Gap 9.0 3-11 mmol/L Blood Urea Nitrogen 28 7-18 mg/dl Creatinine 1.33 0.60-1.40 mg/dl Est Creatinine Clear Calc Drug Dose 48.8 ml/min Estimated GFR () 60.6 Estimated GFR (Non- 52.3 BUN/Creatinine Ratio 21.1 10-20 Random Glucose 154 70-99 mg/dl Calcium Level 8.6 8.5-10.1 mg/dl Phosphorus Level 3.4 2.5-4.9 mg/dl Magnesium Level 1.9 1.8-2.4 mg/dl Total Bilirubin 0.8 0.2-1 mg/dl Aspartate Amino Transf (AST/SGOT) 10 15-37 U/L Alanine Aminotransferase (ALT/SGPT) 9 12-78 U/L Alkaline Phosphatase 94 45-117 U/L Total Protein 7.0 6.4-8.2 gm/dl Albumin 3.5 3.4-5.0 gm/dl Globulin 3.5 2.5-4.0 gm/dl Albumin/Globulin Ratio 1.0 0.9-2 Lipase 57 73-393 U/L Impression Assessment and Plan 72 y/o M who presents with episode of syncope. DDx considered include, dehydration, infection, hypoglycemia, hypoxia, ACS, TIA/CVA, arrhythmia, seizures, Parkinson's etc. Syncopal episode Likely secondary to dehydration/hypotension, no indication of infection at this time, Low likelihood of seizures. ?TIA/CVA Patient also has Parkinson's which could contribute to degree of autonomic dysfunction leading to low bp /syncope CT head is negative to acute pathologies Will get MRI brain to definitively rule out CVA Orthostatic vitals NSS, recheck BMP AM Hold carvedilol, furosemide, finasteride Echocardiogram to look for Structural heart disease Admit to Tele, trend troponin x 3 Metastatic pancreatic ca - care per Oncology on Chemo holiday Hematuria - Follow up outpatient for cystoscopy - waiting on U/A - recently treated for UTI CAD s/p Stent Continue aspirin, plavix, statin Parkinson's Continue Sinemet, donepezil Diabetes Lantus 25 units ISS Accu-checks RLS Ropinirole BPH Continue Rapaflo Hold finasteride Gerd: Continue pantoprazole DVT proph: Lovenox recommended due to pancreatic ca However, patient reports hematuria, will hold on chemical proph SCD Code: FULL Resuscitation Status VTE Prophylaxis Will order VTE Prophylaxis: Yes Assessment/Plan Resident Physician Supervision Note: I was present with Dr. River during the history and exam. I discussed the case with the resident and agree with the findings and plan as documented in the note. Any exceptions or clarifications are listed here. Pt seen and examined at bedside. AAOx3, NAD. 72 y/o male with complicated medical history as noted with new onset altered mental status in the setting of recent N/V and decreased POI with concomitant decreased BP. Pt family reports returning to baseline mental status but still somewhat fatigued following IVF. no previous h/o similar episodes, no residual symptoms at present, pt feels physically at baseline. S1/S2 nl RRR, CTAB, Nt/ND BS nl. Ext str 5/5 with no pitting edema. Would be prudent considering underlying metastatic disease to evaluate for thrombotic event and underlying cardiac causes of altered mental status, but likely related to dehydration whose underlying cause is resolving. Telemetry admission with continued monitoring. Else as above.
[2017-09-29] MEDS ORDERED: IV FLUIDS COMPLETED PRN ×2 (19:00)
[2017-09-29 19:50] VITALS: O2SAT 98
[2017-09-29 20:14] VITALS: BP 163/85; PULSE 58; TEMP 36.5; O2SAT 98; Ht 175.3 cm; Wt 82.9 kg
[2017-09-29] MEDS ORDERED: INSULIN GLARGINE SOLOSTAR 100 UNITS/ML 3 ML PEN SC SCH (21:00)
[2017-09-29] MEDS ORDERED: DONEPEZIL HCL 5 MG TAB PO SCH (21:00)
[2017-09-29] MEDS: INSULIN ASPART 100 UNITS/ML 3 ML PEN SC SCH (21:00)
[2017-09-29] MEDS ORDERED: GABAPENTIN 300 MG CAP PO SCH (21:00)
--- NOTE | 2017-09-29 22:17 | DIAGNOSTIC IMAGING REPORT ---
MRI OF THE BRAIN WITHOUT CONTRAST CLINICAL HISTORY: Syncope. Possible stroke. PANCREATIC CARCINOMA. COMPARISON STUDY: 09/11/2017, CT scan dated 09/29/2017 FINDINGS: The clinical informatics director images demonstrate disc osteophyte complexes at the C2-3 and C3-4 levels. Sagittal T1, axial diffusion, proton density and T2 weighted axial, coronal FLAIR, and axial T1-weighted images were acquired. No intra or extra-axial mass lesions are visualized Axial diffusion-weighted images reveal no evidence of acute or subacute infarction. There is no evidence of ventricular dilatation. Proton density T2-weighted and FLAIR images reveal minimal foci of increased T2 signal within the white matter, likely on a small vessel basis, unchanged the prior study, and not unexpected for age. There are no abnormal flow voids. IMPRESSION: No change from the preceding examination. No acute intracranial findings. Electronically signed by: Ricardo Arce M.D. 09/29/2017 10:15 PM Dictated Date/Time: 09/29/2017 10:12 PM
[2017-09-29] MEDS: ROPINIROLE HCL 0.25 MG TAB PO SCH (22:33)
[2017-09-29] MEDS: CARBIDOPA/LEVODOPA 25-250 1 EA TAB PO SCH (22:33)
[2017-09-29 23:47] VITALS: BP 149/82; PULSE 66; TEMP 36.9; O2SAT 97
[2017-09-30 03:27] VITALS: BP 113/72; PULSE 71; TEMP 36.6; O2SAT 95
[2017-09-30 06:35] LABS: CALCIUM 8.7 mg/dl (8.5-10.1); CREATININE 0.7 mg/dl (0.60-1.40); POTASSIUM 3.5 mmol/L (3.5-5.1)
[2017-09-30] MEDS: INSULIN ASPART 100 UNITS/ML 3 ML PEN SC SCH ×2 (07:00→12:11)
[2017-09-30 08:19] VITALS: BP 159/83; PULSE 71; TEMP 36.6; O2SAT 95
[2017-09-30] MEDS ORDERED: ATORVASTATIN 10 MG TAB PO SCH (09:00)
[2017-09-30] MEDS ORDERED: CLOPIDOGREL BISULFATE 75 MG TAB PO SCH (09:00)
[2017-09-30] MEDS ORDERED: PANTOprazole SOD 40 MG TAB PO SCH (09:00)
[2017-09-30] MEDS ORDERED: FINASTERIDE 5 MG TAB PO SCH (09:00)
[2017-09-30] MEDS ORDERED: GABAPENTIN 300 MG CAP PO SCH (09:00)
[2017-09-30] MEDS ORDERED: ENOXAPARIN 40 MG/0.4 ML SYR SC SCH (09:00)
[2017-09-30] MEDS ORDERED: ASPIRIN 81 MG ECTAB PO SCH (09:00)
[2017-09-30] MEDS: ROPINIROLE HCL 0.25 MG TAB PO SCH (09:05)
[2017-09-30] MEDS: CARBIDOPA/LEVODOPA 25-250 1 EA TAB PO SCH ×2 (09:05→13:43)
--- NOTE | 2017-09-30 10:04 | Discharge Instructions ---
Discharge Instructions Date of Service Sep 30, 2017. Admission Reason for Admission: Dehydration, Unresponsive Episode Discharge Discharge Diagnosis / Problem: Altered mental status, Dehydration Discharge Goals Goal(s): Decrease discomfort, Improve function, Increase independence, Diagnostic testing, Therapeutic intervention, Prevent Disease Progression Activity Recommendations Activity Limitations: resume your previous activity Lifting Limitations: gradually increase as tolerated Exercise/Sports Limitations: gradually increase as tolerated May Resume Sexual Activity: when tolerated Shower/Bathe: no limitations Driving or Machine Use: no limitations . Instructions / Follow-Up Instructions / Follow-Up Dear Mr. Caraballo, You were admitted to the hospital because of altered mental status and weakness. This is likely due to dehydration. You were given IV fluids and your symptoms improved. Brain MRI was normal. You also had an ultrasound of your heart that was normal. Please stay hydrated. We recommend follow up with your PCP within 3-5 days. If you have any worsening of symptoms, chest pain, shortness of breath, etc, please come back to the ER. Thank you for allowing us to participate in your care. - [facility] hospitalist team Current Hospital Diet Patient's current hospital diet: Diabetes Type 2 Diet Discharge Diet Recommended Diet: Diabetes Type 2 Diet Pending Studies Studies pending at discharge: no Medical Emergencies . Who to Call and When: Medical Emergencies: If at any time you feel your situation is an emergency, please call 911 immediately. . Non-Emergent Contact Non-Emergency issues call your: Primary Care Provider, Oncologist, Urologist Call Non-Emergent contact if: you have a fever . . "Provider Documentation" section prepared by Lindsey Hamm. .
[2017-09-30 11:19] VITALS: BP 150/84; PULSE 82; O2SAT 96
--- NOTE | 2017-09-30 11:36 | ECHOCARDIOGRAM REPORT ---
*NOTICE TO RECEIVING [employer]Y This information is strictly Confidential and protected under [place] law. [place] law prohibits you from making any further disclosure of this information unless further disclosure is expressly permitted by the written consent of the person to whom it pertains or is authorized by law. A general authorization for the release of medical or other information is not sufficient for this purpose. Hospital accepts no responsibility if the information is made available to any other person, INCLUDING THE PATIENT. Interpretation Summary * Name: BETINA HANDY JR Study Date: 09/30/2017 08:28 AM BP: 113/72 mmHg * Patient Location: .2T\S\E217\S\1 HR: 71 * : 1945 (M/d/yyy) Gender: Male Height: 69 in * Age: 72 yrs Ethnicity: CA Weight: 168 lb * Ordering Physician: Lindsey River * Referring Physician: Self, Referred * Performed By: Rochelle Egan RCS * * Reason For Study: Syncope * BSA: 1.9 m2 * -- Conclusions -- * 1. Normal LV size. Normal LV wall thickness. * 2. Normal LV systolic function. LVEF 60-65%. No regional wall motion abnormalities. * 3. Normal RV size and function. * 4. No significant valvular pathology. * 5. Normal estimated PA and RA pressures. * 6. No prior studies for comparison. Procedure Details * A complete two-dimensional transthoracic echocardiogram was performed (2D, M-mode, Doppler and color flow Doppler). Left Ventricle * The left ventricle is grossly normal size. * There is normal left ventricular wall thickness. * Ejection Fraction = 60-65%. * No regional wall motion abnormalities noted. Right Ventricle * The right ventricle is grossly normal size. * The right ventricular systolic function is normal as assessed by tricuspid annular plane systolic excursion (TAPSE) (normal >1.5 cm). Atria * The left atrial size is normal. * Right atrial size is normal. * No ASD detected; PFO is not assessed. Mitral Valve * There is mild mitral annular calcification. * There is no mitral valve stenosis. * There is trace mitral regurgitation. Tricuspid Valve * There is trace tricuspid regurgitation. Aortic Valve * The aortic valve opens well. * The aortic valve is trileaflet. * No hemodynamically significant valvular aortic stenosis. * Trace aortic regurgitation. Pulmonic Valve * The pulmonary valve is inadequately visualized, but the Doppler data is adequate for interpretation. * Pulmonic stenosis is absent. * There is no pulmonic valvular regurgitation. Great Vessels * The aortic root and proximal ascending aorta are normal sized. Pericardium/Pleural * There is no pericardial effusion. Great Vessels * Normal inferior vena cava size and collapsability with sniff indicates a normal right atrial pressure of 3 mmHg MMode 2D Measurements and Calculations IVSd 1.1 cm IVSs 1.3 cm LVIDd 4.5 cm LVIDs 3.2 cm LVPWd 1.1 cm LVPWs 1.3 cm IVS/LVPW 1.0 FS 29.4 % EDV(Teich) 92.1 ml ESV(Teich) 40.1 ml EF(Teich) 56.4 % EDV(cubed) 90.7 ml ESV(cubed) 32.0 ml EF(cubed) 64.8 % % IVS thick 13.7 % % LVPW thick 18.4 % LV mass(C)d 180.6 grams LV mass(C)dI 94.1 grams/m\S\2 LV mass(C)s 135.4 grams LV mass(C)sI 70.6 grams/m\S\2 SV(Teich) 51.9 ml SI(Teich) 27.1 ml/m\S\2 SV(cubed) 58.7 ml SI(cubed) 30.6 ml/m\S\2 Ao root diam 4.2 cm Ao root area 13.9 cm\S\2 ACS 2.0 cm LA dimension 3.0 cm asc Aorta Diam 3.7 cm LA/Ao 0.72 EDV(MOD-sp4) 85.0 ml ESV(MOD-sp4) 34.0 ml EF(MOD-sp4) 60.0 % EDV(MOD-sp2) 108.0 ml ESV(MOD-sp2) 48.0 ml EF(MOD-sp2) 55.6 % SV(MOD-sp4) 51.0 ml SI(MOD-sp4) 26.6 ml/m\S\2 SV(MOD-sp2) 60.0 ml SI(MOD-sp2) 31.3 ml/m\S\2 Doppler Measurements and Calculations MV E max ida 75.5 cm/sec MV A max ida 94.9 cm/sec MV E/A 0.80 MV P1/2t max ida 85.4 cm/sec MV P1/2t 120.2 msec MVA(P1/2t) 1.8 cm\S\2 MV dec slope 208.1 cm/sec\S\2 MV dec time 0.25 sec Ao V2 max 125.1 cm/sec Ao max PG 6.3 mmHg Ao max PG (full) 3.7 mmHg LV V1 max PG 2.5 mmHg LV V1 max 79.3 cm/sec PA V2 max 73.8 cm/sec PA max PG 2.2 mmHg
[2017-09-30 12:00] VITALS: O2SAT 96
[2017-09-30 13:46] VITALS: BP 150/84; PULSE 82; TEMP 36.6; O2SAT 96
--- NOTE | 2017-09-30 17:25 | Family Medicine Progress Note ---
Progress Note Date of Service Sep 30, 2017. History Pt seen and examined at bedside. Reports considerable improvement in diffuse weakness now at baseline. Reports no MURO, vision changes, CP/SOB, palpitations, n /v/d/c. Date Time Temp Pulse Resp B/P (MAP) Pulse Ox O2 Delivery O2 Flow Rate FiO2 09/30/17 13:46 36.6 82 16 96 Room Air 09/30/17 12:00 96 Room Air 09/30/17 11:19 82 16 150/84 (106) 96 Room Air 09/30/17 08:19 36.6 71 18 159/83 (108) 95 Room Air 09/30/17 08:14 Room Air 09/30/17 04:00 Room Air 09/30/17 03:27 36.6 71 17 113/72 (86) 95 Room Air 09/30/17 00:00 Room Air 09/29/17 23:47 36.9 66 19 149/82 (104) 97 Room Air 09/29/17 20:14 36.5 58 15 163/85 98 Room Air 09/29/17 19:50 98 Room Air 09/29/17 19:01 59 22 122/74 97 09/29/17 18:31 64 22 130/78 97 09/29/17 18:31 64 09/29/17 18:02 64 20 123/63 98 09/29/17 17:31 67 16 100/56 97 Gen: AAOx3, NAD CV: S1/S2 nl RRR Resp: CTAB Abd: NT/ND BS +ve Presenting complaints having resolved, reviewed MRI, echocardiogram and troponins without concerning findings - likely underlying cause was gastroenteritis with subsequent global weakness which prevented recovery. For full summary, see resident discharge summary. Assessment/Plan Resident Physician Supervision Note: I was present with Dr. River during the history and exam. I discussed the case with the resident and agree with the findings and plan as documented in the note. Any exceptions or clarifications are listed here. Pt seen and examined at bedside. AAOx3, NAD. 72 y/o male with complicated medical history as noted with new onset altered mental status in the setting of recent N/V and decreased POI with concomitant decreased BP. Pt family reports returning to baseline mental status but still somewhat fatigued following IVF. no previous h/o similar episodes, no residual symptoms at present, pt feels physically at baseline. S1/S2 nl RRR, CTAB, Nt/ND BS nl. Ext str 5/5 with no pitting edema. Would be prudent considering underlying metastatic disease to evaluate for thrombotic event and underlying cardiac causes of altered mental status, but likely related to dehydration whose underlying cause is resolving. Telemetry admission with continued monitoring. Else as above.
== END 2017-09-30 14:15 | disposition home or self-care (01) | DRG 312 ==
LOC: EDBD 14:29 → C.EDC 14:30 → C.2T 17:56 → EDBEDREQ 17:57 → ENRESERV 18:58
PROVIDERS: ADMIT Family Medicine; ATTEND Family Medicine
DX: R55 Syncope and collapse (principal); C25.9 Malignant neoplasm of pancreas, unspecified; E11.9 Type 2 diabetes mellitus without complications; I10 Essential (primary) hypertension; E86.0 Dehydration; I95.9 Hypotension, unspecified; G20 Parkinson's disease; I25.10 Atherosclerotic heart disease of native coronary artery without angina pectoris; G25.81 Restless legs syndrome; K21.9 Gastro-esophageal reflux disease without esophagitis; N40.0 Benign prostatic hyperplasia without lower urinary tract symptoms; Z79.82 Long term (current) use of aspirin; Z79.4 Long term (current) use of insulin; Z88.5 Allergy status to narcotic agent; Z87.891 Personal history of nicotine dependence; Z83.3 Family history of diabetes mellitus; Z82.49 Family history of ischemic heart disease and other diseases of the circulatory system

== ENCOUNTER 2017-10-09 15:29 | Emergency (ER) | payer OTHER ==
[~2017-10-09] VITALS: Ht 175.3 cm; Wt 89.0 kg
[~2017-10-09 15:29] MED LIST changes: +GABA-113 PO; -GABA-1220 PO; -MELO-84 PO; -ONDA-170 PO; +PANT40TA PO; -PROC1TAB5 PO
[2017-10-09] MEDS ORDERED: SODIUM CHLORIDE 0.9% 1000ML 1,000 ML IV STA (15:49)
[2017-10-09] MEDS ORDERED: SODIUM CHLORIDE 0.9% 500ML 500 ML IV STA (15:49)
[2017-10-09] MEDS ORDERED: ONDANSETRON INJ 2 MG/ML 2 ML VIAL IV STA (15:49)
--- NOTE | 2017-10-09 15:56 | EMERGENCY ROOM VISIT NOTE ---
History First contact with patient: 15:36 Chief Complaint: NAUSEA Stated Complaint: NAUSEA AND VOMMITTING History of Present Illness The patient is a 72 year old male who presents to the Emergency Room with complaints of nausea and vomiting. The patient also notes the following associated symptoms, generalized fatigue. This started this morning and is constant. The patient has tried compazine for relieving factors which did not help. He was here last week for the same and was dehydrated. states after hydration he did very well. He has known pancreatic CA which is relatively stable for the last 5 years. Pt denies LOC, headache, fevers, chills, diaphoresis, visual changes, neck pain, chest pain, breathing difficulties, abdominal pain, back pain, melena, hematochezia, urinary symptoms , numbness, focal weakness, lymphadenopathy, rash, or other complaints. Review of Systems See HPI for pertinent positives and negatives. A total of ten systems were reviewed and were otherwise negative. Past Medical/Surgical History Medical Problems: (1) Cataract Nos (2) Dehydration (3) Diab Tessie Wo Compl, Type Ii Or Unspec Type, Not Uncntrld (4) Hypertension Nos (5) Malig Nikhil Pancreas Nos (6) Pancreatic adenocarcinoma (7) Primary pancreatic cancer (8) Unresponsive episode Family History Diabetes mellitus Heart disease Hypertension Social History Smoking Status: Former Smoker Alcohol Use: occasionally Marital Status: Housing Status: lives with family Occupation Status: retired Current/Historical Medications Scheduled Aspirin (Aspirin), 81 MG PO QAM Atorvastatin (Lipitor), 10 MG PO Q2D Carbidopa/Levodopa (Sinemet 25MG/250MG), 1.5 TAB PO QID Carvedilol (Carvedilol), 6.25 MG PO BIDM Clopidogrel (Plavix), 75 MG PO QAM Donepezil HCl (Donepezil HCl), 1 TAB PO HS Finasteride (Proscar), 5 MG PO QAM Gabapentin (Neurontin), 300 MG PO AMPM Gabapentin (Neurontin), 600 MG PO HS Insulin Glargine (Lantus), 25-40 UNITS SQ HS Insulin Human Lispro (Humalog), UNITS SQ ACHS Metformin HCl (Metformin HCl), 500 MG PO BID Pantoprazole (Protonix), 40 MG PO QAM Ropinirole Hydrochloride (Requip), 1 TAB PO TID Silodosin (Rapaflo), 8 MG PO QPM Scheduled PRN Acetaminophen (Tylenol Arthritis Ext Rel), 650 MG PO Q8H PRN for Pain Furosemide (Lasix), 20 MG PO DAILY PRN for FLUID RETENTION Lorazepam (Ativan), 0.5 MG PO DAILY PRN for Anxiety Prochlorperazine Maleate (Prochlorperazine Maleate), 1 TAB PO Q8 PRN for Nausea Physical Exam Vital Signs Date Time Temp Pulse Resp B/P (MAP) Pulse Ox O2 Delivery O2 Flow Rate FiO2 10/09/17 16:53 67 18 190/98 96 Room Air 10/09/17 16:28 97 Room Air 10/09/17 16:12 70 10/09/17 15:32 36.5 77 16 180/95 93 Room Air Physical Exam GENERAL: Awake, WN,WD, tired-appearing, in no distress HENT: Normocephalic, atraumatic. Oropharynx unremarkable. EYES: Normal conjunctiva. Sclera non-icteric. NECK: Supple. No nuchal rigidity. FROM. No masses. RESPIRATORY: Clear to auscultation. No wheezes. No rales. Normal respiratory effort. CARDIAC: Normal rate. Normal rhythm. No murmurs. No rubs. Extremities warm and well perfused. Pulses equal. No JVD. GI: Soft, non-distended. No tenderness to palpation. No rebound or guarding. No masses. RECTAL: Deferred. MUSCULOSKELETAL: Atraumatic. Chest examination reveals no tenderness. The back is symmetrical on inspection without obvious abnormality. There is no CVA tenderness to palpation. No joint edema. LOWER EXTREMITIES: Calves are equal size bilaterally and non-tender. No edema. No discoloration. NEURO: Normal sensorium. No sensory or motor deficits noted. SKIN: No rash or jaundice noted. Medical Decision & Procedures ER Provider Diagnostic Interpretation: SINGLE VIEW CHEST CLINICAL HISTORY: Generalized weakness. FINDINGS: An AP, portable, upright chest radiograph is compared to study dated 09/29/2017 and correlated with chest CT dated 07/14/2017. The examination is degraded by portable technique and patient rotation. A right subclavian central venous infusion port is unchanged in position. The heart is normal for projection. There is atherosclerotic calcification of the thoracic aorta there is no airspace consolidation or pleural effusion. No pneumothorax is seen. Small pulmonary nodules seen by CT were not apparent on x-ray. The skeletal structures are osteopenic. A surgical anchor is noted in the right humeral head. Posttraumatic deformity is seen in the left humeral head. IMPRESSION: No acute cardiopulmonary abnormality. Electronically signed by: Sander Clark M.D. 10/09/2017 4:22 PM Dictated Date/Time: 10/09/2017 4:20 PM Laboratory Results 10/09/17 16:20 Red Blood Count 4.67, Mean Corpuscular Volume 89.9, Mean Corpuscular Hemoglobin 31.0, Mean Corpuscular Hemoglobin Concent 34.5, Mean Platelet Volume 10.4, Neutrophils (%) (Auto) 63.2, Lymphocytes (%) (Auto) 25.3, Monocytes (%) (Auto) 9.9, Eosinophils (%) (Auto) 1.2, Basophils (%) (Auto) 0.2, Neutrophils # (Auto) 3.72, Lymphocytes # (Auto) 1.49, Monocytes # (Auto) 0.58, Eosinophils # (Auto) 0.07, Basophils # (Auto) 0.01 10/09/17 16:20 Test 10/09/17 16:20 10/09/17 17:20 White Blood Count 5.88 K/uL (4.8-10.8) Red Blood Count 4.67 M/uL (4.7-6.1) Hemoglobin 14.5 g/dL (14.0-18.0) Hematocrit 42.0 % (42-52) Mean Corpuscular Volume 89.9 fL (80-100) Mean Corpuscular Hemoglobin 31.0 pg (25-34) Mean Corpuscular Hemoglobin Concent 34.5 g/dl (32-36) Platelet Count 188 K/uL (130-400) Mean Platelet Volume 10.4 fL (7.4-10.4) Neutrophils (%) (Auto) 63.2 % Lymphocytes (%) (Auto) 25.3 % Monocytes (%) (Auto) 9.9 % Eosinophils (%) (Auto) 1.2 % Basophils (%) (Auto) 0.2 % Neutrophils # (Auto) 3.72 K/uL (1.4-6.5) Lymphocytes # (Auto) 1.49 K/uL (1.2-3.4) Monocytes # (Auto) 0.58 K/uL (0.11-0.59) Eosinophils # (Auto) 0.07 K/uL (0-0.5) Basophils # (Auto) 0.01 K/uL (0-0.2) RDW Standard Deviation 44.8 fL (36.4-46.3) RDW Coefficient of Variation 13.6 % (11.5-14.5) Immature Granulocyte % (Auto) 0.2 % Immature Granulocyte # (Auto) 0.01 K/uL (0.00-0.02) Prothrombin Time 10.4 SECONDS (9.0-12.0) Prothromb Time International Ratio 1.0 (0.9-1.1) Activated Partial Thromboplast Time 25.0 SECONDS (21.0-31.0) Partial Thromboplastin Ratio 1.0 Anion Gap 8.0 mmol/L (3-11) Est Creatinine Clear Calc Drug Dose 125.5 ml/min Estimated GFR () 117.2 Estimated GFR (Non- 101.2 BUN/Creatinine Ratio 22.2 (10-20) Calcium Level 9.3 mg/dl (8.5-10.1) Magnesium Level 1.9 mg/dl (1.8-2.4) Total Bilirubin 0.6 mg/dl (0.2-1) Direct Bilirubin 0.1 mg/dl (0-0.2) Aspartate Amino Transf (AST/SGOT) 13 U/L (15-37) Alanine Aminotransferase (ALT/SGPT) 9 U/L (12-78) Alkaline Phosphatase 90 U/L (45-117) Troponin I < 0.015 ng/ml (0-0.045) Total Protein 7.7 gm/dl (6.4-8.2) Albumin 3.9 gm/dl (3.4-5.0) Lipase 46 U/L (73-393) Thyroid Stimulating Hormone (TSH) 0.495 uIu/ml (0.300-4.500) Urine Color YELLOW Urine Appearance CLEAR (CLEAR) Urine pH 6.5 (4.5-7.5) Urine Specific [place] 1.021 (1.000-1.030) Urine Protein NEG (NEG) Urine Glucose (UA) 1+ (NEG) Urine Ketones TRACE (NEG) Urine Occult Blood NEG (NEG) Urine Nitrite NEG (NEG) Urine Bilirubin NEG (NEG) Urine Urobilinogen NEG (NEG) Urine Leukocyte Esterase NEG (NEG) Medications Administered Medications (Trade) Dose Ordered Sig/Dez Route Start Time Stop Time Status Last Admin Dose Admin Sodium Chloride 1,000 ml @ 125 mls/hr Q8H STAT IV 10/09/17 15:49 10/09/17 23:48 10/09/17 16:22 125 MLS/HR Ondansetron HCl (Zofran Inj) 4 mg NOW STAT IV 10/09/17 15:49 10/09/17 15:51 DC 10/09/17 16:22 4 MG Sodium Chloride 500 ml @ 999 mls/hr Q31M STAT IV 10/09/17 15:49 10/09/17 16:19 DC 10/09/17 15:49 999 MLS/HR ECG Per My Interpretation Indication: vomiting Rate (beats per minute): 71 Rhythm: normal sinus Findings: no acute ischemic change, no ectopy, other (Normal intervals) Medical Decision Triage Nursing notes reviewed. Prior records reviewed from his last visit. Imaging reviewed. Some minimal progression to the right upper quadrant metastasis noted. The patient's presentation and history were concerning for nausea and vomiting. Etiologies such as dehydration, gastroenteritis, food borne illness, infections , obstruction, pancreatitis, appendicitis, diverticulitis, inflammatory bowel disease, GI bleed, biliary pathology, toxicologic as well as others were entertained. The patient was evaluated. He was tired appearing. He had a nonfocal examination. The patient had a benign abdominal examination and denied having any abdominal pain. An ECG was performed and was unremarkable. He was hydrated with normal saline. He was given a dose of Zofran. He was doing better on reassessment. Chest imaging was performed and was unremarkable. The patient had a normal CBC. Chemistry panel revealed some mild dehydration. Troponin negative. Urinalysis negative. On additional reassessment the patient stated he felt well. His symptoms resolved. He took oral fluids without difficulty. His fatigue and sleepiness resolved. Family was present and stated that he was back to normal. The patient did request some Tylenol for his chronic right hip pain. This was given. The patient's symptoms were rather abrupt in onset. He had a similar issue last week and they waited longer before coming to the hospital. He was more dehydrated at that time. The patient tolerated oral fluids. I discussed multiple treatment options. The patient does not want to stay in the hospital. Since it is early in the course of treatment here I offered to continue IV hydration and oral hydration for an additional 2 hours in the ER. If he is tolerating this well, is completely normal, and is able to ambulate as he does normally at home he can be discharged. The feels very comfortable as does the rest of his family with this plan. His case was signed out to Dr. Mcfarlane at the change of shift. Please see his note for disposition and details. Medication Reconcilliation Current Medication List: was personally reviewed by me Blood Pressure Screening Patient's blood pressure: Elevated blood pressure Blood pressure disposition: Referred to PCP Impression Primary Impression: Nausea & vomiting Additional Impression: Dehydration Departure Information Dispostion Still a Patient Referrals Gerald Gardner M.D. (PCP) Patient Instructions My [facility] Problem Qualifiers
--- NOTE | 2017-10-09 16:23 | DIAGNOSTIC IMAGING REPORT ---
SINGLE VIEW CHEST CLINICAL HISTORY: Generalized weakness. FINDINGS: An AP, portable, upright chest radiograph is compared to study dated 09/29/2017 and correlated with chest CT dated 07/14/2017. The examination is degraded by portable technique and patient rotation. A right subclavian central venous infusion port is unchanged in position. The heart is normal for projection. There is atherosclerotic calcification of the thoracic aorta there is no airspace consolidation or pleural effusion. No pneumothorax is seen. Small pulmonary nodules seen by CT were not apparent on x-ray. The skeletal structures are osteopenic. A surgical anchor is noted in the right humeral head. Posttraumatic deformity is seen in the left humeral head. IMPRESSION: No acute cardiopulmonary abnormality. Electronically signed by: Sander Clark M.D. 10/09/2017 4:22 PM Dictated Date/Time: 10/09/2017 4:20 PM
[2017-10-09 16:28] VITALS: O2SAT 97; Ht 175.3 cm; Wt 89.0 kg
[2017-10-09 16:38] LABS: BASO % 0.2 %; BASO ABS # 0.01 K/uL (0-0.2); EOS % 1.2 %; EOS ABS # 0.07 K/uL (0-0.5); HEMOGLOBIN 14.5 g/dL (14.0-18.0); IG# 0.01 K/uL (0.00-0.02); LYMPH % 25.3 %; LYMPH ABS # 1.49 K/uL (1.2-3.4); MEAN CELL VOLUME 89.9 fL (80-100); MEAN CORPUSCULAR HGB CONC 34.5 g/dl (32-36); MEAN PLATELET VOLUME 10.4 fL (7.4-10.4); MONO % 9.9 %; MONO ABS # 0.58 K/uL (0.11-0.59); NEUT % 63.2 %; NEUT ABS # 3.72 K/uL (1.4-6.5); PLATELET COUNT 188 K/uL (130-400); RED CELL DISTRIBUTION WIDTH CV 13.6 % (11.5-14.5); RED CELL DISTRIBUTION WIDTH SD 44.8 fL (36.4-46.3); WHITE BLOOD COUNT 5.88 K/uL (4.8-10.8)
[2017-10-09 17:06] LABS: ALBUMIN 3.9 gm/dl (3.4-5.0); ALT/SGPT 9 U/L (12-78); BLOOD UREA NITROGEN 13 mg/dl (7-18); CALCIUM 9.3 mg/dl (8.5-10.1); CARBON DIOXIDE 29 mmol/L (21-32); CREATININE 0.57 mg/dl (0.60-1.40); GLUCOSE 172 mg/dl (70-99); LIPASE 46 U/L (73-393); POTASSIUM 4.1 mmol/L (3.5-5.1); SODIUM 136 mmol/L (136-145)
[2017-10-09 17:17] LABS: ALKALINE PHOSPHATASE 90 U/L (45-117); AST/SGOT 13 U/L (15-37); TOTAL PROTEIN 7.7 gm/dl (6.4-8.2)
[2017-10-09] MEDS ORDERED: ARC10 PO (17:21)
[2017-10-09] MEDS ORDERED: ROPI0.5T PO (17:21)
[2017-10-09] MEDS ORDERED: CMP/10 PO (17:21)
[2017-10-09] MEDS ORDERED: ACETAMINOPHEN 500 MG TAB PO STA (18:07)
[2017-10-09] MEDS ORDERED: CARVEDILOL 6.25 MG TAB PO STA (20:18)
--- NOTE | 2017-10-09 20:31 | EMERGENCY ROOM VISIT NOTE ---
ED Visit Note First contact with patient: 20:18 I received this patient at change of shift signout from Dr. COREY, the patient presented to the emergency department because of nausea and vomiting. The patient's had similar symptoms in the past. He was treated with IV fluids and IV anti-medics. The patient was felt to be a good candidate for outpatient management. The patient as well as his significant other felt that he could be managed as an outpatient as well. The patient was found to have elevated blood pressure in the emergency department. He was treated with his evening dose of carvedilol. He was reevaluated and was feeling much better. His significant other states that he has antiemetics at home. She was encouraged to continue all medications as prescribed. He is scheduled for a CT of the chest abdomen and pelvis as well as fasting blood work tomorrow. He was encouraged to follow- up for these laboratory studies. He was also encouraged to follow-up with his primary care physician as well as his oncologist but return to the emergency department immediately if symptoms change worsen or the need arises.
[2017-10-09 22:23] VITALS: BP 196/110; PULSE 79; TEMP 36.5; O2SAT 96
== END 2017-10-09 22:24 | disposition home or self-care (01) ==
LOC: C.EDB 15:31 → C.EDC 22:24
DX: E86.0 Dehydration (principal); C25.9 Malignant neoplasm of pancreas, unspecified; C79.89 Secondary malignant neoplasm of other specified sites; E11.9 Type 2 diabetes mellitus without complications; I10 Essential (primary) hypertension; H26.9 Unspecified cataract; Z79.82 Long term (current) use of aspirin; Z79.4 Long term (current) use of insulin; Z87.891 Personal history of nicotine dependence; Z83.3 Family history of diabetes mellitus; Z82.49 Family history of ischemic heart disease and other diseases of the circulatory system; Z79.899 Other long term (current) drug therapy

== ENCOUNTER → 2017-10-13 | Outpatient (CLI) | payer OTHER ==
[~2017-10-13] MED LIST changes: +ARC10 PO; +CMP/10 PO; -DONE1TAB25 PO; +OPTIRAY 320 IV PRN; -ROPI0.25 PO; +ROPI0.5T PO
--- NOTE | 2017-10-13 12:55 | DIAGNOSTIC IMAGING REPORT ---
CHEST CT WITH CONTRAST CT DOSE: HISTORY: Pancreatic cancer. Follow-up. TECHNIQUE: Multiaxial CT images of the chest were performed following the intravenous administration of contrast. A dose lowering technique was utilized adhering to the principles of ALARA. COMPARISON: Chest CT 07/14/2017. FINDINGS: The central airways are patent. No pleural effusions. No pneumothorax. The 12 mm left upper lobe nodule has slightly increased in size. This previously measured 10 mm. Stable 5 mm subpleural nodule within the superior segment of the left lower lobe. There has also been increase in size in a 2.4 cm peripheral nodule within the right lower lobe on image 179. This previously measured 1.9 cm. No new pulmonary nodules identified. Healed left humeral neck fracture. Bilateral old, healed rib fractures. There is also a healing left lateral 10th rib fracture. No mediastinal or hilar lymphadenopathy. The heart is normal in size. The central pulmonary arteries are patent. There are a few calcified mediastinal lymph nodes. A right Port-A-Cath terminates at the superior cavoatrial junction. IMPRESSION: 1. Slight increase in size in the dominant nodules within the left upper lobe and right lower lobe as described above. This is consistent with worsening metastatic disease. No new nodules identified. 2. No thoracic lymphadenopathy. 3. Please refer to the same day abdomen and pelvis CT for further evaluation of the pancreatic mass. Electronically signed by: Cuco Zaragoza M.D. 10/13/2017 12:53 PM Dictated Date/Time: 10/13/2017 12:45 PM
--- NOTE | 2017-10-13 13:01 | DIAGNOSTIC IMAGING REPORT ---
ABDOMEN AND PELVIS CT WITH IV AND ORAL CONTRAST CT DOSE: 2218.09 mGy.cm HISTORY: Follow-up study in a patient with history of pancreatic cancer. Subsequent treatment strategy CT TECHNIQUE: Multiaxial CT images of the abdomen and pelvis were performed following the use of intravenous and oral contrast. A dose lowering technique was utilized adhering to the principles of ALARA. COMPARISON STUDY: CT abdomen and pelvis 09/29/2017, CT chest of same day FINDINGS: Pleural-based 2.3 x 1.3 cm consolidative opacity with irregular spiculated margins is again seen within the lateral basal segment right lower lobe, image 19 series 7 which appears unchanged from comparison. Mild dependent subsegmental bibasilar atelectasis. No pneumatosis or pneumoperitoneum identified. Imaged inferior cardiac chambers are unremarkable. Indeterminate 7 mm area of nodularity of the left chest subcutaneous tissues. Gallbladder is mildly contracted. The liver, and right adrenal gland are unremarkable. There is mild thickening of the left adrenal gland which is unchanged. 4 mm calcification of the inferior spleen. Mild nonspecific bilateral perinephric stranding. Nonobstructing 3 mm calculus of the inferior pole right kidney. 5 mm low attenuating lesion of the posterior interpolar left kidney is too small to characterize however suggests renal cyst. Mild circumferential wall thickening of the bladder. Ureters are within normal limits. Heterogeneous mass of the pancreatic head appear generally unchanged from comparison study measuring up to 6.3 x 5.1 cm transverse and AP dimension. Again, this results in severe narrowing of the portosplenic confluence. 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 These are also unchanged. 1.3 cm omental implant within the right upper abdomen on image 192 series 7 appears unchanged. Additional smaller omental implants are seen superior to the dominant implant measuring up to 8 mm, image 172 series 7 which also appear generally unchanged. Unchanged abdominal vasculature encasement. Moderate atherosclerosis of the aorta without aneurysm. No bowel obstruction or focal bowel wall thickening identified. Mild nonspecific wall thickening about the rectum. Moderate stool volume of the cecum, ascending and transverse colon. Unchanged appearance of the appendix. Degenerative changes are noted about the hips, pelvis and spine. Severe multilevel facet arthrosis. Healing fracture of the S1 vertebral body redemonstrated. Multiple healing bilateral rib fractures redemonstrated. There are no suspicious lytic or blastic bony lesions identified to suggest bony metastasis. IMPRESSION: 1. Unchanged appearance of the heterogeneous pancreatic head mass with stable vascular encasement as detailed above. 2. Omental nodularity of the right upper abdomen with largest implant measuring up to 1.3 cm also appears unchanged from comparison study suggesting metastasis. 3. Stable size and appearance of the 2.3 cm nodular opacity within the right lower lobe again suggesting metastatic disease. 4. Healing S1 and bilateral rib fractures without evidence of bony metastasis. Electronically signed by: Michele Barksdale M.D. 10/13/2017 1:00 PM Dictated Date/Time: 10/13/2017 12:45 PM
== END | disposition home or self-care (01) ==
LOC: C.CTS 11:47
PROVIDERS: ATTEND Internal Medicine Hematology & Oncology
DX: C25.1 Malignant neoplasm of body of pancreas (principal); R19.01 Right upper quadrant abdominal swelling, mass and lump; R91.8 Other nonspecific abnormal finding of lung field

== ENCOUNTER → 2017-10-16 | Day surgery (SDC) | payer OTHER ==
[2017-09-18 10:27] VITALS: Ht 175.3 cm; Wt 89.5 kg
[~2017-10-16] VITALS: Ht 175.3 cm; Wt 89.5 kg
[~2017-10-16] MED LIST changes: +BUPIVACAINE 0.25% 2.5MG/ML PF 10 ML VIAL ONE; +IOPAMIDOL INJ 61% 15 ML VIAL ONE; +LIDOCAINE HCL 1% MPF 5 ML VIAL ONE; -OPTIRAY 320 IV PRN
--- NOTE | 2017-10-16 13:44 | [facility] Post Operative Brief Note ---
Immediate Operative Summary Operative Date Oct 16, 2017. Pre-Operative Diagnosis Chronic low back pain with proximal right leg pain, possible sacroiliitis Post-Operative Diagnosis Same Procedure(s) Performed Right Sacroiliac Joint Injection Surgeon Dr. Jaimie Mendoza [employer] Surgeon(s) None Estimated Blood Loss 0 Findings Consistent with Post-Op Diagnosis Specimens NA Drains None Anesthesia Type Local Complication(s) none Disposition Disposition:
[2017-10-16 13:45] VITALS: TEMP 36.6
--- NOTE | 2017-10-16 13:45 | Discharge Instructions ---
Discharge Instructions Date of Service Oct 16, 2017. Visit Reason for Visit: Sacroiliitis Discharge Discharge Diagnosis / Problem: low back pain Discharge Goals Goal(s): Decrease discomfort, Improve function Activity Recommendations Activity Limitations: resume your previous activity Anesthesia . Post Anesthesia Instructions: If you have had General Anesthesia or IV Sedation: * Do not drive today. * Resume driving when surgeon permits. * Do not make important decisions or sign legal documents today. * Call surgeon for: 1. Temperature elevations greater than 101 degrees F. 2. Uncontrollable pain. 3. Excessive bleeding. 4. Persistent nausea and vomiting. 5. Medication intolerance (nausea, vomiting or rash). * For nausea and vomiting use only clear liquids such as: tea, soda, bouillon until nausea subsides, then gradually increase diet as tolerated. * If you have any concerns or questions, call your surgeon's office. If physician is unavailable and it is an emergency, call 911 or go to the nearest emergency room. . Diet Recommendations Recommended Home Diet: resume previous diet Procedures Procedures Performed: Right Sacroiliac Joint Injection Pending Studies Studies pending at discharge: no Medical Emergencies . Who to Call and When: Medical Emergencies: If at any time you feel your situation is an emergency, please call 911 immediately. . Non-Emergent Contact Non-Emergency issues call your: Specialist . . "Provider Documentation" section prepared by Kota Mendoza. .
[2017-10-16 14:04] VITALS: BP 113/65; PULSE 84; O2SAT 96
--- NOTE | 2017-10-16 14:42 | OPERATIVE REPORT ---
DATE OF OPERATION: 10/16/2017 PREOPERATIVE DIAGNOSIS: Right sacroiliitis. POSTOPERATIVE DIAGNOSIS: Right sacroiliitis. PROCEDURE: Right sacroiliac joint injection under fluoroscopic guidance. INDICATIONS: The patient is a 72-year-old white male who has really localizing pain to the SI joint. He has had hip injections, bursa injections, and a caudal, but did not provide him with relief of this pain. He attends today to have a sacroiliac joint injection to get him relief. PHYSICAL EXAMINATION: He has point tenderness to palpation on the right SI joint, left lateral more than medial. He has a positive AURY maneuver. CONSENT: Verbal and written consent was obtained from the patient. Risks and benefits were reviewed. Risks include but are not limited to epidural abscess, epidural hematoma, allergic reaction, dural puncture. The patient wishes to proceed. PROCEDURE IN DETAIL: The patient was taken back to the special procedures room of the [facility] where he was maintained in a prone position. Backside was cleansed with Betadine x3 and a dry sterile dressing was applied. Fluoroscope was used to identify the right SI joint and the overlying skin was anesthetized with 2.5 mL of lidocaine 1% with a 25 gauge 1-1/2 inch needle. A 25-gauge 3.5 inch spinal needle was then directed under fluoroscopic guidance into the joint. There was some discomfort when it entered the joint. Isovue-300 contrast 0.25 mL demonstrated it to be intraarticular. He then underwent injection after negative aspiration of 40 mg Depo-Medrol and 1.5 mL of bupivacaine 0.25%. The procedure was well-tolerated. DISPOSITION: 1. The patient is taken out into the discharge recovery area where he will be discharged home once discharge criteria are met. 2. Follow up in the [facility] office in 2-4 weeks. I attest to the content of the Intraoperative Record and any orders documented therein. Any exceptions are noted below. SALMA
== END | disposition home or self-care (01) ==
LOC: X.SURG 12:37
PROVIDERS: ATTEND Physical Medicine & Rehabilitation
DX: M46.1 Sacroiliitis, not elsewhere classified (principal); M54.5 Low back pain; G89.29 Other chronic pain; M79.604 Pain in right leg

== ENCOUNTER → 2017-11-11 | Outpatient (CLI) | payer OTHER ==
[~2017-11-11] MED LIST changes: -BUPIVACAINE 0.25% 2.5MG/ML PF 10 ML VIAL ONE; -CMP/10 PO; -IOPAMIDOL INJ 61% 15 ML VIAL ONE; -LIDOCAINE HCL 1% MPF 5 ML VIAL ONE; +PROC10TA5 PO
== END | disposition home or self-care (01) ==
LOC: C.PATHSPEC 17:22
PROVIDERS: ATTEND Urology
DX: R31.9 Hematuria, unspecified (principal)

== ENCOUNTER → 2018-02-17 | Outpatient (CLI) | payer OTHER | END | disposition home or self-care (01) | LOC: C.RDSM 13:06 | PROVIDERS: ATTEND Orthopaedic Surgery Sports Medicine | DX: S42.202D Unspecified fracture of upper end of left humerus, subsequent encounter for fracture with routine healing (principal); X58.XXXD Exposure to other specified factors, subsequent encounter; Z88.6 Allergy status to analgesic agent ==

== ENCOUNTER 2018-03-02 21:08 | Emergency (ER) | payer OTHER ==
[~2018-03-02] VITALS: Ht 170.2 cm; Wt 85.0 kg
[2018-03-02 21:16] VITALS: TEMP 37.1; Ht 170.2 cm; Wt 85.0 kg
[2018-03-02] MEDS ORDERED: ONDANSETRON INJ 2 MG/ML 2 ML VIAL IV STA (21:43)
[2018-03-02] MEDS ORDERED: SODIUM CHLORIDE 0.9% 500ML 500 ML IV STA (21:43)
[2018-03-02] MEDS ORDERED: FAMOTIDINE 20MG/5ML IV PUSH IV STA (21:43)
[2018-03-02] MEDS ORDERED: OPTIRAY 320 IV PRN (22:00)
[2018-03-02 22:23] LABS: HEMOGLOBIN 15.2 g/dL (14.0-18.0); IG# 0.01 K/uL (0.00-0.02); LYMPH % 16.7 %; MEAN CELL VOLUME 88.4 fL (80-100); MEAN CORPUSCULAR HEMOGLOBIN 30.5 pg (25-34); MEAN CORPUSCULAR HGB CONC 34.5 g/dl (32-36); MEAN PLATELET VOLUME 10.1 fL (7.4-10.4); MONO % 4.2 %; NEUT % 78.9 %; NEUT ABS # 3.79 K/uL (1.4-6.5); PLATELET COUNT 192 K/uL (130-400); RED CELL DISTRIBUTION WIDTH CV 15.5 % (11.5-14.5); RED CELL DISTRIBUTION WIDTH SD 48.9 fL (36.4-46.3)
[2018-03-02 22:48] LABS: ALBUMIN 4.1 gm/dl (3.4-5.0); ALKALINE PHOSPHATASE 98 U/L (45-117); ALT/SGPT 15 U/L (12-78); AST/SGOT 15 U/L (15-37); BLOOD UREA NITROGEN 11 mg/dl (7-18); CALCIUM 9.4 mg/dl (8.5-10.1); CARBON DIOXIDE 28 mmol/L (21-32); CREATININE 0.68 mg/dl (0.60-1.40); GLUCOSE 213 mg/dl (70-99); LIPASE 33 U/L (73-393); PHOSPHORUS 3.5 mg/dl (2.5-4.9); POTASSIUM 4.2 mmol/L (3.5-5.1); SODIUM 132 mmol/L (136-145); TOTAL PROTEIN 8.1 gm/dl (6.4-8.2)
--- NOTE | 2018-03-02 23:07 | EMERGENCY ROOM VISIT NOTE ---
History Report prepared by Perri: July Flores Under the Supervision of: Dr. Guido Barajas M.D. First contact with patient: 21:41 Chief Complaint: VOMITING Stated Complaint: VOMITING, CAN'T HOLD ANYTHING DOWN Nursing Triage Summary: Pt states he has been nauseated since Friday and hasn't been able to keep anything down. Nausea and vomiting worsened today. Pt had chemo Friday. History of Present Illness The patient is a 72 year old male who presents to the Emergency Room with complaints of persistent vomiting beginning today. His notes the patient was nauseous the past few days, but only really began vomiting today, "too many times to count." The patient was diagnosed with pancreatic cancer 5 years ago, and is stage III or IV. He sees Dr. Burt as his oncologist, and last had chemotherapy on Friday. His reports this most recent treatment was his third since beginning treatment again last month following a 6 month break. She states this nausea and vomiting is not normal for him while in treatment. The patient denies fevers, CP, or SOB. He states his last bowel movement was this evening, and it was soft and small. The patient notes he did not feel he had difficulty having a bowel movement. His notes he is on Plavix for a heart stent placed last year. Source of History: patient, spouse/significant other Onset: today Position: abdomen Quality: other (vomiting) Timing: other (persistent) Associated Symptoms: + nausea, No fevers, No chest pain, No SOB Note: Denies: difficulty with bowel movement Review of Systems See HPI for pertinent positives and negatives. A total of ten systems were reviewed and were otherwise negative. Past Medical & Surgical Medical Problems: (1) Cataract Nos (2) Dehydration (3) Diab Tessie Wo Compl, Type Ii Or Unspec Type, Not Uncntrld (4) Hypertension Nos (5) Malig Nikhil Pancreas Nos (6) Pancreatic adenocarcinoma (7) Primary pancreatic cancer (8) Unresponsive episode Family History Diabetes mellitus Heart disease Hypertension Social History Smoking Status: Former Smoker Alcohol Use: occasionally Marital Status: Housing Status: lives with family Occupation Status: retired Current/Historical Medications Scheduled Aspirin (Aspirin), 81 MG PO QAM Atorvastatin (Lipitor), 10 MG PO Q2D Carbidopa/Levodopa (Sinemet 25MG/250MG), 1.5 TAB PO QID Carvedilol (Carvedilol), 6.25 MG PO BIDM Clopidogrel (Plavix), 75 MG PO QAM Donepezil HCl (Donepezil HCl), 1 TAB PO HS Finasteride (Proscar), 5 MG PO QAM Gabapentin (Neurontin), 300 MG PO AMPM Gabapentin (Neurontin), 600 MG PO HS Insulin Glargine (Lantus), 25-40 UNITS SQ HS Insulin Human Lispro (Humalog), UNITS SQ ACHS Metformin HCl (Metformin HCl), 500 MG PO BID Pantoprazole (Protonix), 40 MG PO QAM Ropinirole Hydrochloride (Requip), 1 TAB PO TID Silodosin (Rapaflo), 8 MG PO QPM Scheduled PRN Acetaminophen (Tylenol Arthritis Ext Rel), 650 MG PO Q8H PRN for Pain Furosemide (Lasix), 20 MG PO DAILY PRN for FLUID RETENTION Lorazepam (Ativan), 0.5 MG PO DAILY PRN for Anxiety Prochlorperazine Maleate (Prochlorperazine Maleate), 1 TAB PO Q8 PRN for Nausea Allergies Coded Allergies: Codeine (Verified Adverse Reaction, Mild, GI SYMPTOMS, 10/09/17) nausea Physical Exam Vital Signs Date Time Temp Pulse Resp B/P (MAP) Pulse Ox O2 Delivery O2 Flow Rate FiO2 03/03/18 01:50 98 18 203/123 98 03/03/18 01:00 91 18 191/112 99 Room Air 03/03/18 00:30 116 18 189/132 98 Room Air 03/02/18 23:30 102 20 207/128 97 Room Air 03/02/18 23:16 106 18 208/116 97 Room Air 03/02/18 22:19 100 03/02/18 22:18 100 22 218/112 98 Room Air 03/02/18 21:16 37.1 104 18 193/123 96 Room Air Physical Exam GENERAL: Awake, alert, chronically ill-appearing, uncomfortable, in no distress. HENT: Normocephalic, atraumatic. Oropharynx unremarkable. Mucous membranes are dry and cracked. EYES: Normal conjunctiva. Sclera non-icteric. NECK: Supple. No nuchal rigidity. FROM. No JVD. RESPIRATORY: Clear to auscultation. CARDIAC: Regular rate, normal rhythm. Extremities warm and well perfused. Pulses equal. ABDOMEN: Soft, non-distended. Mild epigastric pain. No rebound or guarding. No masses. RECTAL: Deferred. MUSCULOSKELETAL: Chest examination reveals no tenderness. The back is symmetrical on inspection without obvious abnormality. There is no CVA tenderness to palpation. No joint edema. LOWER EXTREMITIES: Calves are equal size bilaterally and non-tender. No edema. No discoloration. NEURO: Normal sensorium. No sensory or motor deficits noted. SKIN: No rash or jaundice noted. Medical Decision & Procedures ER Provider Diagnostic Interpretation: Radiology results as stated below per my review and radiologist interpretation: CHEST ONE VIEW PORTABLE CLINICAL HISTORY: Abdominal pain. Pancreatic cancer. COMPARISON STUDY: Chest CT December 25, 2017. FINDINGS: Right subclavian Mhlevy-i-Ralo is in place. There is no pneumothorax or pleural effusion. Old left humeral neck fracture is noted. There is no evidence for pulmonary edema. Mild cardiomegaly is unchanged. Old bilateral rib fractures are noted. Hazy opacity within the lateral right lower hemithorax may correspond to a known metastasis shown on prior chest CT. IMPRESSION: 1. No acute cardiopulmonary findings. 2. Hazy lateral right lower hemithorax opacity which may correspond to a known metastasis shown on CT of December 25, 2017. Electronically signed by: Jorge L Garcia M.D. 03/02/2018 11:13 PM Dictated Date/Time: 03/02/2018 11:11 PM [facility] Preliminary Findings Only See Final Report For Complete Findings CT ABDOMEN & PELVIS With Contrast: Findings: Small right basilar consolidation. The heart is not enlarged. Liver, gallbladder, spleen, and adrenals are unremarkable. Symmetric nephrograms. No hydronephrosis or nephrolithiasis. No change in the appearance of the remaining pancreatic tissue. No bowel obstruction or wall thickening. Stable nonspecific feathery soft tissue in the greater omentum, near the hepatic flexure of the colon. No evidence for acute appendicitis. No ascites or free air. Large amount of stool in the rectum. No lymphadenopathy. No aortic aneurysm or dissection. Impression: Right lower lobe atelectasis versus infiltrate. No change in the appearance of the remaining pancreatic tissue. No bowel obstruction or wall thickening. Stable nonspecific right upper quadrant soft tissue. Radiologist: Anastacio Davis MD Study ready at 23:53 and initial results transmitted at 00:04 Laboratory Results 03/02/18 22:09 Red Blood Count 4.98, Mean Corpuscular Volume 88.4, Mean Corpuscular Hemoglobin 30.5, Mean Corpuscular Hemoglobin Concent 34.5, Mean Platelet Volume 10.1, Neutrophils (%) (Auto) 78.9, Lymphocytes (%) (Auto) 16.7, Monocytes (%) (Auto) 4.2, Eosinophils (%) (Auto) 0.0, Basophils (%) (Auto) 0.0, Neutrophils # (Auto) 3.79, Lymphocytes # (Auto) 0.80, Monocytes # (Auto) 0.20, Eosinophils # (Auto) 0.00, Basophils # (Auto) 0.00 03/02/18 22:09 Test 03/02/18 22:09 03/02/18 22:30 White Blood Count 4.80 K/uL (4.8-10.8) Red Blood Count 4.98 M/uL (4.7-6.1) Hemoglobin 15.2 g/dL (14.0-18.0) Hematocrit 44.0 % (42-52) Mean Corpuscular Volume 88.4 fL (80-100) Mean Corpuscular Hemoglobin 30.5 pg (25-34) Mean Corpuscular Hemoglobin Concent 34.5 g/dl (32-36) Platelet Count 192 K/uL (130-400) Mean Platelet Volume 10.1 fL (7.4-10.4) Neutrophils (%) (Auto) 78.9 % Lymphocytes (%) (Auto) 16.7 % Monocytes (%) (Auto) 4.2 % Eosinophils (%) (Auto) 0.0 % Basophils (%) (Auto) 0.0 % Neutrophils # (Auto) 3.79 K/uL (1.4-6.5) Lymphocytes # (Auto) 0.80 K/uL (1.2-3.4) Monocytes # (Auto) 0.20 K/uL (0.11-0.59) Eosinophils # (Auto) 0.00 K/uL (0-0.5) Basophils # (Auto) 0.00 K/uL (0-0.2) RDW Standard Deviation 48.9 fL (36.4-46.3) RDW Coefficient of Variation 15.5 % (11.5-14.5) Immature Granulocyte % (Auto) 0.2 % Immature Granulocyte # (Auto) 0.01 K/uL (0.00-0.02) Anion Gap 11.0 mmol/L (3-11) Est Creatinine Clear Calc Drug Dose 99.3 ml/min Estimated GFR () 109.0 Estimated GFR (Non- 94.1 BUN/Creatinine Ratio 16.4 (10-20) Lactic Acid Level 1.6 mmol/L (0.4-2.0) Calcium Level 9.4 mg/dl (8.5-10.1) Phosphorus Level 3.5 mg/dl (2.5-4.9) Magnesium Level 1.8 mg/dl (1.8-2.4) Total Bilirubin 0.9 mg/dl (0.2-1) Direct Bilirubin 0.3 mg/dl (0-0.2) Aspartate Amino Transf (AST/SGOT) 15 U/L (15-37) Alanine Aminotransferase (ALT/SGPT) 15 U/L (12-78) Alkaline Phosphatase 98 U/L (45-117) Troponin I < 0.015 ng/ml (0-0.045) Total Protein 8.1 gm/dl (6.4-8.2) Albumin 4.1 gm/dl (3.4-5.0) Lipase 33 U/L (73-393) Urine Color YELLOW Urine Appearance CLEAR (CLEAR) Urine pH 6.5 (4.5-7.5) Urine Specific [place] 1.018 (1.000-1.030) Urine Protein 3+ (NEG) Urine Glucose (UA) 2+ (NEG) Urine Ketones 2+ (NEG) Urine Occult Blood 2+ (NEG) Urine Nitrite NEG (NEG) Urine Bilirubin NEG (NEG) Urine Urobilinogen NEG (NEG) Urine Leukocyte Esterase NEG (NEG) Urine WBC (Auto) 1-5 /hpf (0-5) Urine RBC (Auto) 10-30 /hpf (0-4) Urine Hyaline Casts (Auto) 1-5 /lpf (0-5) Urine Epithelial Cells (Auto) 5-10 /lpf (0-5) Urine Bacteria (Auto) NEG (NEG) Laboratory results reviewed by me Medications Administered Medications (Trade) Dose Ordered Sig/Dez Route Start Time Stop Time Status Last Admin Dose Admin Ondansetron HCl (Zofran Inj) 4 mg NOW STAT IV 03/02/18 21:43 03/02/18 21:50 DC 03/02/18 22:12 4 MG Famotidine (Pepcid 20mg Iv Push) 20 mg ONE STAT IV 03/02/18 21:43 03/02/18 21:50 DC 03/02/18 22:12 20 MG Sodium Chloride 500 ml @ 999 mls/hr Q31M STAT IV 03/02/18 21:43 03/02/18 22:13 DC 03/02/18 22:12 999 MLS/HR Sodium Chloride 500 ml @ 999 mls/hr Q31M STAT IV 03/03/18 00:23 03/03/18 00:53 DC 03/03/18 00:29 999 MLS/HR Labetalol HCl (Normodyne IV) 10 mg NOW STAT IV 03/03/18 00:23 03/03/18 00:27 DC 03/03/18 00:52 10 MG Sucralfate (Carafate Susp) 1 gm NOW STAT PO 03/03/18 00:23 03/03/18 00:27 DC 03/03/18 00:52 1 GM Carbidopa/Levodopa (Sinemet 25/ 250MG Tab) 1.5 tab NOW STAT PO 03/03/18 00:23 03/03/18 00:27 DC 03/03/18 00:54 1.5 TAB ECG Per My Interpretation Indication: vomiting Rate (beats per minute): 103 Rhythm: sinus tachycardia Findings: no acute ischemic change, other (normal axis) ED Course 2142: The patient was evaluated in room B7. A complete history and physical exam was performed. Medical Decision I reviewed the patient's past medical history, medications, and the nursing notes as described above. Differential diagnosis: Etiologies such as appendicitis, diverticulitis, PUD, biliary pathology, UTI, pancreatitis, obstruction, mesenteric ischemia, aortic pathology, infections, inflammatory bowel disease, renal colic, as well as others were entertained. The patient is a 72-year-old gentleman with a past medical history of pancreatic ca undergoing chemotherapy, HTN, CAD s/p stent, DM, parkinson's disease on Sinemet since emergency department with nausea and vomiting per hpi. Patient is chronically ill appearing but no acute distress, afebrile, heart rate in the 100s, hypertensive 190s/120s. On exam the patient appears clinically dry. He has mild epigastric tenderness without peritoneal signs. Labs unremarkable including WBC and lactate within normal limits. Sodium 132 chloride 93 distant with mild dehydration. Chemistry without evidence of acidosis. UA negative for infection. CT abd/pel without acute findings per preliminary [facility] read. The patient was feeling improved after IV fluids, Pepcid. However, still remain mildly tachycardic and hypertensive. It is likely that the patient did absorb his medications given his nausea/vomiting throughout the day. She was given IV dose of labetalol given this additional IV fluid hydration. Patient was offered the option for admission however he felt improved and his felt that she could ensure he continue to hydrate and understand to return if worse. Findings and plan for follow-up reviewed with patient. Patient agreeable and d/c'd per discharge instructions. Medication Reconcilliation Current Medication List: was personally reviewed by me Impression Primary Impression: Nausea & vomiting Scribe Attestation The scribe's documentation has been prepared under my direction and personally reviewed by me in its entirety. I confirm that the note above accurately reflects all work, treatment, procedures, and medical decision making performed by me. Departure Information Referrals Gerald Gardner M.D. (PCP) Patient Instructions ED Nausea Vomiting, My [facility] Additional Instructions Please follow up with your primary care physician tomorrow as well as your oncologist, Dr. Burt, as scheduled for re-evaluation. The cause of your symptoms is unclear at this time however may be related to your chemotherapy, or possible gastritis/viral illness. Otherwise, your exam, EKG, chest xray, lab results, and CT scan of your abdomen did not show signs of an emergent condition at this time. Continue your current medications as prescribed. Drink plenty of fluids to ensure hydration. Return to the emergency department for worsening symptoms as described in the accompanying instructions.
--- NOTE | 2018-03-02 23:15 | DIAGNOSTIC IMAGING REPORT ---
CHEST ONE VIEW PORTABLE CLINICAL HISTORY: Abdominal pain. Pancreatic cancer. COMPARISON STUDY: Chest CT December 25, 2017. FINDINGS: Right subclavian Cltsgr-y-Ueak is in place. There is no pneumothorax or pleural effusion. Old left humeral neck fracture is noted. There is no evidence for pulmonary edema. Mild cardiomegaly is unchanged. Old bilateral rib fractures are noted. Hazy opacity within the lateral right lower hemithorax may correspond to a known metastasis shown on prior chest CT. IMPRESSION: 1. No acute cardiopulmonary findings. 2. Hazy lateral right lower hemithorax opacity which may correspond to a known metastasis shown on CT of December 25, 2017. Electronically signed by: Jorge L Garcia M.D. 03/02/2018 11:13 PM Dictated Date/Time: 03/02/2018 11:11 PM
[2018-03-03] MEDS ORDERED: LABETALOL HCL IV 5 MG/ML 20ML IV STA (00:23)
[2018-03-03] MEDS ORDERED: CARBIDOPA/LEVODOPA 25-250 1 EA TAB PO STA (00:23)
[2018-03-03] MEDS ORDERED: SUCRALFATE 1 GM/10 ML UDC PO STA (00:23)
[2018-03-03] MEDS ORDERED: SODIUM CHLORIDE 0.9% 500ML 500 ML IV STA (00:23)
[2018-03-03] MEDS ORDERED: SUCRALFATE 1 GM TAB ONE (00:46)
[2018-03-03 01:50] VITALS: BP 203/123; PULSE 98; O2SAT 98
--- NOTE | 2018-03-03 08:08 | DIAGNOSTIC IMAGING REPORT ---
ABDOMEN AND PELVIS CT WITH IV CONTRAST CT DOSE: 403.52 mGy.cm HISTORY: Nausea. Vomiting. Pancreatic cancer. TECHNIQUE: Multiaxial CT images of the abdomen and pelvis were performed following the use of intravenous contrast. A dose lowering technique was utilized adhering to the principles of ALARA. COMPARISON STUDY: Abdomen and pelvis CT 12/25/2017. FINDINGS: Lung bases: The heart is mildly enlarged and without pericardial effusion. There are coronary artery calcifications. A lesion in the right lung base remains unchanged and measures 2.6 cm. The lung bases are otherwise clear. No pleural effusion is identified. There is a small hiatal hernia. Liver: The contrast-enhanced liver is normal in size, contour, and attenuation. There is no intrahepatic biliary ductal dilatation. The hepatic veins and portal veins are patent. Gallbladder: Unremarkable. Spleen: Normal in size and attenuation. There is a calcified splenic granuloma. Pancreas: No significant change in the heterogeneous mass centered in the neck of the pancreas. This currently measures approximately 7.6 x 4.7 cm. This encases and occludes the superior mesenteric and the splenic vein at the portosplenic confluence. There are numerous omental collaterals as well as perigastric varices. This lesion also encases the hepatic and splenic arteries which appear patent. The distal pancreas is markedly atrophic. Adrenal glands: Unremarkable. Kidneys: The contrast enhanced kidneys are normal in size and without hydronephrosis. The kidneys enhance symmetrically. There is a 4 mm nonobstructing calculus in the right lower pole. Abdominal vasculature: The abdominal aorta is normal in course and caliber noting moderate to advanced atherosclerotic calcification. Bowel: No bowel obstruction is seen. The appendix is well-visualized and normal. Peritoneum: There is no intraperitoneal free air or abdominal ascites. There is a small fat-containing umbilical hernia. Omental implants have increased in size. Implants in the right anterior abdomen on image 164 now measure up to 3.5 cm (previously measuring up to 2.3 cm). A subcentimeter implant is seen in the right lower quadrant near the base of the cecum has slightly increased in size. Lymphadenopathy: None. Pelvic viscera: The the prostate gland is diminutive and heterogeneous. The bladder is distended. The bladder wall appears thickened and trabeculated suggesting chronic outlet obstruction. There are small bilateral fat-containing bilateral inguinal hernias. Skeletal structures: The skeletal structures are osteopenic. Mild/moderate lumbosacral spondylosis is observed. A healing fracture of the anterior S1 vertebral body is again noted. There is surrounding paravertebral edema. No lytic or blastic lesions are clearly seen. There are healed bilateral rib fractures. IMPRESSION: 1. Overall slight progression of disease as compared to 10/13/2017. 2. A large heterogeneous mass centered in the neck of the pancreas remains unchanged and is consistent with the patient's history of pancreatic cancer. There are enlarging peritoneal implants and a stable right lower lobe pulmonary nodule. 3. The pancreatic mass lesion encases and occludes the superior mesenteric vein and the splenic vein at the portosplenic confluence. There are large omental collaterals as well as perigastric varices. 4. Nonobstructing right renal calculus. 5. Moderate colonic fecal retention. 6. Again seen is a healing fracture through the anterior/superior endplate of S1 with mild surrounding paravertebral edema. No lytic or blastic bony lesion is clearly identified. Electronically signed by: Cuco Zaragoza M.D. 03/03/2018 8:07 AM Dictated Date/Time: 03/03/2018 7:55 AM
== END 2018-03-03 01:50 | disposition home or self-care (01) ==
LOC: C.EDB 21:09
DX: R11.2 Nausea with vomiting, unspecified (principal); E11.9 Type 2 diabetes mellitus without complications; I10 Essential (primary) hypertension; I25.10 Atherosclerotic heart disease of native coronary artery without angina pectoris; G20 Parkinson's disease; Z85.07 Personal history of malignant neoplasm of pancreas; Z87.891 Personal history of nicotine dependence; Z88.3 Allergy status to other anti-infective agents; Z82.49 Family history of ischemic heart disease and other diseases of the circulatory system; Z79.02 Long term (current) use of antithrombotics/antiplatelets; Z79.4 Long term (current) use of insulin; Z79.82 Long term (current) use of aspirin; Z79.84 Long term (current) use of oral hypoglycemic drugs; Z79.899 Other long term (current) drug therapy; Z88.5 Allergy status to narcotic agent

== ENCOUNTER 2018-08-10 13:47 | Inpatient (IN) ==
[2018-08-10] MEDS ORDERED: SODIUM CHLORIDE 0.9% 1000ML 1,000 ML IV ONE (14:57)
[2018-08-10 15:25] LABS: Basophils # (auto) 0.02 K/uL (0-0.2); Basophils % (auto) 0.3 %; Eosinophils # (auto) 0.03 K/uL (0-0.5); Eosinophils % (auto) 0.5 %; Hematocrit (blood only) 35.2 % (42-52); Hemoglobin 11.8 g/dL (14.0-18.0); Immature Granulocytes # (auto) 0.01 K/uL (0.00-0.02); Immature Granulocytes % (auto) 0.2 %; Lymphocytes # (auto) 1.05 K/uL (1.2-3.4); Lymphocytes % (auto) 17.6 %; Mean Corpuscular Hgb Conc 33.5 g/dL (32-36); Mean Corpuscular Volume 83.8 fL (80-100); Mean Platelet Volume 11.3 fL (7.4-10.4); Monocytes # (auto) 0.68 K/uL (0.11-0.59); Monocytes % (auto) 11.4 %; Neutrophils # (auto) 4.16 K/uL (1.4-6.5); Platelet Count 217 K/uL (130-400); RDW Coefficient of Variation 17.4 % (11.5-14.5); RDW Standard Deviation 53.8 fL (36.4-46.3); White Blood Count 5.95 K/uL (4.8-10.8)
[2018-08-10 15:27] LABS: iSTAT Hemoglobin 13.3 g/dl (14.0-18.0); iSTAT Ionized Calcium 1.07 mmol/l (1.12-1.32)
[2018-08-10 15:32] LABS: INR 1.5 (0.9-1.1); Prothrombin Time 14.4 Seconds (9.0-12.0)
[2018-08-10 15:54] LABS: Albumin Globulin Ratio 0.8 (0.9-2); Bilirubin,Total 6.3 mg/dl (0.2-1); Calcium 8.6 mg/dl (8.5-10.1); Creatinine Clr Calc Pharmacy 98.2 ml/min; Est GFR (African American) 110.3; Est GFR (Non-African American) 95.2; Potassium 3.2 mmol/L (3.5-5.1)
[2018-08-10] MEDS ORDERED: IOVERSOL 100ml IV PRN (16:12)
--- NOTE | 2018-08-10 16:36 | CT Scan Report ---
ABDOMEN AND PELVIS CT WITH IV CONTRAST CT DOSE: 443.88 mGy.cm HISTORY: Follow-up study in a patient with history of pancreatic carcinoma jaundice known ca TECHNIQUE: Multiaxial CT images of the abdomen and pelvis were performed following the use of intrave nous contrast. A dose lowering technique was utilized adhering to the principles of ALARA. COMPARISON STUDY: CT abdomen and pelvis 06/10/2018, 04/15/2018. FINDINGS: Metastatic mass about the lateral basal segment right lower lobe abutting the pleural surface now shaina sures 4.4 x 2.4 cm, previously 3.5 x 1.9 cm. Mild dependent subsegmental bibasilar atelectasis. No pn eumatosis or pneumoperitoneum. Imaged inferior cardiac chambers are moderately enlarged. Progressively worsened intrahepatic biliary ductal dilation. There also appears be mild dilation of t he common bile duct with abrupt narrowing in the distribution of the pancreatic head. The gallbladder also demonstrates progressive distention. No associated gallbladder wall thickening or cholelithiasi s identified. Spleen and right adrenal gland are unremarkable. Mild thickening about the left adrenal gland. Large infiltrative mass of the pancreatic head redemonstrated measuring approximately 7.6 x 5.1 cm in AP and transverse dimensions respectively, previously measuring approximately 7.6 x 5.1 cm when gita ured in a similar fashion on study from 06/10/2018. Mass again demonstrates vascular invasion about th e portal splenic confluence with adjacent collateral flow. There also appears to be vascular encaseme nt about the common hepatic, right gastric and proximal splenic arteries with additional tumor encase ment about the superior mesenteric artery. There is abutment with possible tumor invasion about the d istal lesser curvature of the stomach the region of the gastric antrum/pylorus on image 134 series 3. Kidneys are unremarkable. Mild circumferential wall thickening about the urinary bladder. Small fat f illed bilateral hernias. Moderate calcified plaque about the abdominal aorta without aneurysm. Diasta ses recti with tiny fat filled periumbilical hernia. Mild circumferential wall thickening about the m id and distal sigmoid and rectum with adjacent inflammatory stranding. No small bowel obstruction. r-filled appendix appears noninflamed. Progressed peritoneal/omental nodules/masses throughout the ab domen and pelvis. For example, 3.7 cm omental mass about the bilateral mid abdomen, previously measur ing 2.4 cm. Soft tissues are unremarkable. Multilevel degenerative changes about the spine, pelvis an d hips. No suspicious lytic or blastic bony lesions to suggest osseous metastasis. Remote fracture ab out the sacrum. IMPRESSION: 1. Interval development of intrahepatic and extrahepatic biliary ductal dilation, likely secondary to biliary invasion/obstruction secondary to the known pancreatic head mass which has not significantly changed in size from 06/10/2018. 2. Vascular encasement/occlusion with associated collaterals as detailed above. Additionally, the mas s abuts and possibly invades the distal stomach within the distribution of the gastric antrum/pylorus . 3. Progressive omental/peritoneal metastatic disease. 4. Mild wall thickening with surrounding inflammation about the sigmoid colon and rectum compatible w ith a nonspecific colitis/proctitis. 5. Increased size of the metastatic mass of the right lower lobe. 6. Additional findings as above. No significant abnormality identified within the abdomen or pelvis. Electronically signed by: Michele Barksdale M.D. 08/10/2018 4:35 PM
[2018-08-10] MEDS ORDERED: PIPERACILL/TAZOBAC CONSULT ACTIVE PRN (16:50)
[2018-08-10] MEDS ORDERED: PIPERACILLIN/TAZOBACTAM 4.5 GM/120 ML BAG IV ONE (16:50)
[2018-08-10] MEDS ORDERED: ONDANSETRON INJ 2 MG/ML 2 ML VIAL IV STA (17:00)
[2018-08-10 17:24] LABS: Appearance Urine Slightly Cloudy (Clear); Color Urine Amber; Ictotest Urine Positive (Negative)
[2018-08-10 17:25] LABS: Specific Gravity Urine > 1.035 (1.000-1.030)
[2018-08-10 17:40] LABS: Bacteria Urine Automated Negative (Negative); Calcium Oxalate Crystals Urine Present (None Prsent); Mucus Urine Present (None Prsent)
[2018-08-10] MEDS ORDERED: TRAMADOL HCL 50 MG TABLET PO PRN (19:16)
[2018-08-10] MEDS ORDERED: PROCHLORPERAZINE MALEATE 10 MG TAB PO PRN (19:16)
[2018-08-10] MEDS ORDERED: GLUCOSE 10 TABS/TUBE PO PRN (19:16)
[2018-08-10] MEDS ORDERED: ACETAMINOPHEN 325 MG TAB PO PRN (19:16)
[2018-08-10] MEDS ORDERED: CARBOHYDRATES FOR HYPOGLYCEMIA PO PRN (19:16)
[2018-08-10] MEDS ORDERED: GLUCAGON FOR INJ 1 MG VIAL SQ PRN (19:16)
[2018-08-10] MEDS ORDERED: GLUCOSE 40% GEL 15 GM TUBE PO PRN (19:16)
[2018-08-10] MEDS ORDERED: DEXTROSE 50% 50 ML SYRINGE IV PRN (19:16)
[2018-08-10] MEDS ORDERED: ONDANSETRON 8 MG TABLET PO PRN (19:16)
[2018-08-10] MEDS ORDERED: PHARMACY GLYCEMIC MGMT CONSULT PRN (19:36)
--- NOTE | 2018-08-10 19:36 | History & Physical Report ---
Date of Service August 10, 2018 Assessment & Plan (1) Biliary obstruction: Biliary obstruction caused by his pancreatic tumor occluding his common bile duct. - NPO @ midnight - GI consult - Plan for ERCP tomorrow - Trend labs (2) Parkinson disease: Uses Sinemet TID with a long-acting medication overnight. Had also started gabapentin TID per , but it made him too tired. She has dropped it to QHS. - Continue home Sinemet - Decrease gabapentin to 100mg PO QHS (3) Diabetes mellitus: High insulin needs at home. - Lower home insulin to 20 units (usually gets 25-35 units) QHS for being NPO - Sliding scale - A1c in the morning (4) CAD (coronary artery disease): On ASA/Plavix for history of CAD and stents. - Will hold ASA/Plavix tomorrow before procedure, but should restart as soon as able from GI perspective. (5) Hypertension: Please see Dr. Borges's discharge note from 04/21/2018 for full details, but has very labile BP, often with 100 mmHg swings spontaneously due to autonomic instability. - Continue home meds - Will *NOT* treat with a PRN medication as this resulted in BP down to 60/40s during prior hospitalization - Only treat PRN if there is evidence of end organ damage (6) Pancreatic cancer: Recently seen at [facility] with biopsy done to attempt immunotherapy; however, per the letter they received, they were not able to get any tumor during the biopsy. CT a/p on 08/10 indicates progressive disease. - Oncology consult - Palliative care consult - Continue anti-emetics (7) Chronic diastolic CHF (congestive heart failure): No indicate on exam of any volume overload, and patient has had reduced intake from nausea and vomiting. reports he hasn't taken his PRN Lasix in weeks. - Monitor volume status while getting IV fluids (8) DVT prophylaxis: SCDs - Until after procedure(s) History of Present Illness Primary Care Provider: Gerald Gardner MD 73yo M w/ hx of pancreatic cancer who presents with jaundice. He and his report that in July, he was at [facility] for a biopsy and was in a good state of health. After returning from a cruise, family noted that he was more jaundice and had labs done. He reports that he has some stomach pain, but this is constant. He reports darker urine and hull and deck remover stools. He had a CT scan done which showed a pancreatic mass obstructing his CBD. He denies any fever, chills, sweats. Allergies Allergy/AdvReac Type Severity Reaction Status Date / Time codeine AdvReac Mild GI SYMPTOMS Verified 10/09/17 15:31 Home Medications Home Medications Medication Instructions Recorded Confirmed Type acetaminophen [Tylenol 8 Hour] 2 tab PO Q8H PRN 04/14/18 08/10/18 History aspirin 81 mg PO DAILY 04/14/18 08/10/18 History atorvastatin 10 mg PO Q OTHER DAY 04/14/18 08/10/18 History clopidogrel 75 mg PO DAILY 04/14/18 08/10/18 History donepezil 10 mg PO HS 04/14/18 08/10/18 History finasteride 5 mg PO DAILY 04/14/18 08/10/18 History furosemide 20 mg PO DAILY PRN 04/14/18 08/10/18 History lidocaine 1 patch TOPICAL DAILY PRN 04/14/18 08/10/18 History ropinirole 0.5 mg PO TID 04/14/18 08/10/18 History silodosin [Rapaflo] 8 mg PO QPM 04/14/18 08/10/18 History carbidopa-levodopa 1 tab PO HS #30 tab 04/21/18 08/10/18 Rx carbidopa-levodopa 1.5 tab PO 4XDQ3H #120 tab 04/21/18 08/10/18 Rx lisinopril [Zestril] 10 mg PO QAM #30 tab 04/21/18 08/10/18 Rx loperamide 2 mg PO Q3H PRN #15 cap 04/21/18 08/10/18 Rx metoprolol tartrate 25 mg PO BID #60 tab 04/21/18 08/10/18 Rx pantoprazole 40 mg PO BID #60 tab 04/21/18 08/10/18 Rx tramadol 50 mg PO TID PRN #3 tab 04/21/18 08/10/18 Rx cholecalciferol (vitamin D3) 2,000 unit PO DAILY 08/10/18 08/10/18 History [Vitamin D3] colestipol [Colestid] 1 g PO QAM 08/10/18 08/10/18 History gabapentin 300 mg PO TID 08/10/18 08/10/18 History insulin glargine [Lantus Solostar 30 - 40 units SUBCUT QPM 08/10/18 08/10/18 History U-100 Insulin] insulin lispro [Humalog KwikPen 0 units SUBCUT TIDM 08/10/18 08/10/18 History Insulin] ipratropium bromide 2 spray INTRANASAL TID 08/10/18 08/10/18 History metformin 500 mg PO QPM 08/10/18 08/10/18 History mupirocin 1 applic TOPICAL BID 08/10/18 08/10/18 History ondansetron HCl [Zofran] 8 mg PO TID PRN 08/10/18 08/10/18 History potassium chloride 10 meq PO QPM 08/10/18 08/10/18 History prochlorperazine maleate 10 mg PO Q6 PRN 08/10/18 08/10/18 History [Compazine] Past Med/Surg History Medical History Chronic diastolic CHF (congestive heart failure) Acute respiratory failure with hypoxia Hypokalemia Pneumonia Chest pain CAESAR (acute kidney injury) (Acute) Hypotension (Acute) Elevated troponin (Acute) Chemotherapy induced nausea and vomiting (Acute) Generalized weakness (Acute) Diabetes mellitus (Chronic) CAD (coronary artery disease) (Chronic) Hypertension (Chronic) Parkinson disease (Chronic) Pancreatic cancer (Chronic) BPH (benign prostatic hyperplasia) (Chronic) NSTEMI (non-ST elevated myocardial infarction) (Resolved) Surgical History History of coronary artery stent placement (Chronic) Social History Current Living Situation: Spouse Current Living Situation Comment: Home with Other Information That Helps Us Care for You: No Feels Safe at Home: Yes Safety Concerns: Feels Safe At This Time Smoking Status: Former smoker Cigarettes per Day: 1987 Hx Alcohol Use: Yes Alcohol type: beer Alcohol Intake Frequency: a few times a week Hx Substance Use: No Beliefs That Will Affect Care: None Preferred Language: [place] Communication Ability: Impaired Physical Exam 2 Vital Signs (Past 24 Hours): Last Vital Signs Temp 36.6 C 08/10/18 19:27 Pulse 69 08/10/18 19:27 Resp 18 08/10/18 19:27 BP 204/101 H 08/10/18 19:28 Pulse Ox 97 08/10/18 19:27 Constitutional: WD/WN, vitals as above + lethargic; no acute distress Eyes: EOM intact bilaterally; no conjunctival abnormality ENMT: external ear and nose normal, oropharynx normal Neck: trachea midline, no thyromegaly normal visual inspection Respiratory: normal respiratory effort, lungs clear to auscultation no respiratory distress Cardiovascular: RRR, no murmur, no edema Gastrointestinal (Abdomen): Inspection/Auscultation: abdomen normal to inspection; abdomen not distended Musculoskeletal: no cyanosis or clubbing, extremities motor strength 5/5 Skin: no rashes, warm and dry + jaundice Neurologic: moves all extremities and awake Psychiatric: Orientation: alert, oriented to person and cooperative _ (1) Diabetes mellitus Diabetes mellitus type: type 2 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 transplanted heart: [place] heart Associated angina: with unspecified angina Qualified Code(s): I25.119 - Atherosclerotic heart disease of [place] coronary artery with unspecified angina pectoris (3) Hypertension Hypertension type: essential hypertension Qualified Code(s): I10 - Essential (primary) hypertension
[2018-08-10] MEDS ORDERED: SODIUM CHLORIDE 0.9% 1000ML 1,000 ML IV SCH (20:00)
--- NOTE | 2018-08-10 20:53 | Emergency Department Note ---
Entered by Germania Aviles acting as a scribe for Jesus Coleman DO History of Present Illness General Chief complaint: Abnormal Labs/Diagnostic Testing Stated complaint: JAUNDICE, BRYAN STOOLS, ABNORMAL LIVER ENZYMES Time Seen by Provider: 08/10/18 14:38 Source: patient and family () Mode of arrival: ambulatory Limitations: no limitations History of Present Illness Provider complaint: jaundice Onset (ago): month(s) (1.5) Location: eyes Radiation: other (skin) Pain Consistency: + other (worsening) Maximum Pain Intensity: 10 Current Pain Intensity: 8 Quality: + other (jaundice) Associated symptoms: + nausea/vomiting and + other (dark urine, abdominal pain) The patient is a 73 year old male who presents to the Emergency Room with complaints of a worsening jaundice that began about 1.5 months ago. The patient' s at bedside reports that the patient has a history of pancreatic cancer and had an endoscopy with bipsy performed mid-June. She states that the patient has been jaundice since. Per , the patient is currently receiving chemotherapy and notes that his last session was July 09. The patient reports that he has had abdominal pain, nausea, vomiting and dark urine. He denies any alcohol use. Per , the patient also has a history of Parkinson's and diabetes. The denies any similar episodes in the past. Home Medications Home Medications Medication Instructions Recorded Confirmed Type acetaminophen [Tylenol 8 Hour] 2 tab PO Q8H PRN 04/14/18 08/10/18 History aspirin 81 mg PO DAILY 04/14/18 08/10/18 History atorvastatin 10 mg PO Q OTHER DAY 04/14/18 08/10/18 History clopidogrel 75 mg PO DAILY 04/14/18 08/10/18 History donepezil 10 mg PO HS 04/14/18 08/10/18 History finasteride 5 mg PO DAILY 04/14/18 08/10/18 History furosemide 20 mg PO DAILY PRN 04/14/18 08/10/18 History lidocaine 1 patch TOPICAL DAILY PRN 04/14/18 08/10/18 History ropinirole 0.5 mg PO TID 04/14/18 08/10/18 History silodosin [Rapaflo] 8 mg PO QPM 04/14/18 08/10/18 History carbidopa-levodopa 1 tab PO HS #30 tab 04/21/18 08/10/18 Rx carbidopa-levodopa 1.5 tab PO 4XDQ3H #120 tab 04/21/18 08/10/18 Rx lisinopril [Zestril] 10 mg PO QAM #30 tab 04/21/18 08/10/18 Rx loperamide 2 mg PO Q3H PRN #15 cap 04/21/18 08/10/18 Rx metoprolol tartrate 25 mg PO BID #60 tab 04/21/18 08/10/18 Rx pantoprazole 40 mg PO BID #60 tab 04/21/18 08/10/18 Rx tramadol 50 mg PO TID PRN #3 tab 04/21/18 08/10/18 Rx cholecalciferol (vitamin D3) 2,000 unit PO DAILY 08/10/18 08/10/18 History [Vitamin D3] colestipol [Colestid] 1 g PO QAM 08/10/18 08/10/18 History gabapentin 300 mg PO TID 08/10/18 08/10/18 History insulin glargine [Lantus Solostar 30 - 40 units SUBCUT QPM 08/10/18 08/10/18 History U-100 Insulin] insulin lispro [Humalog KwikPen 0 units SUBCUT TIDM 08/10/18 08/10/18 History Insulin] ipratropium bromide 2 spray INTRANASAL TID 08/10/18 08/10/18 History metformin 500 mg PO QPM 08/10/18 08/10/18 History mupirocin 1 applic TOPICAL BID 08/10/18 08/10/18 History ondansetron HCl [Zofran] 8 mg PO TID PRN 08/10/18 08/10/18 History potassium chloride 10 meq PO QPM 08/10/18 08/10/18 History prochlorperazine maleate 10 mg PO Q6 PRN 08/10/18 08/10/18 History [Compazine] Allergies Allergy/AdvReac Type Severity Reaction Status Date / Time codeine AdvReac Mild GI SYMPTOMS Verified 10/09/17 15:31 Past Med/Surg History Medical History Chronic diastolic CHF (congestive heart failure) Acute respiratory failure with hypoxia Hypokalemia Pneumonia Chest pain CAESAR (acute kidney injury) (Acute) Hypotension (Acute) Elevated troponin (Acute) Chemotherapy induced nausea and vomiting (Acute) Generalized weakness (Acute) Diabetes mellitus (Chronic) CAD (coronary artery disease) (Chronic) Hypertension (Chronic) Parkinson disease (Chronic) Pancreatic cancer (Chronic) BPH (benign prostatic hyperplasia) (Chronic) NSTEMI (non-ST elevated myocardial infarction) (Resolved) Surgical History History of coronary artery stent placement (Chronic) Social History Current Living Situation: Spouse Current Living Situation Comment: Home with Other Information That Helps Us Care for You: No Feels Safe at Home: Yes Safety Concerns: Feels Safe At This Time Smoking Status: Former smoker Cigarettes per Day: 1987 Hx Alcohol Use: Yes Alcohol type: beer Alcohol Intake Frequency: a few times a week Hx Substance Use: No Beliefs That Will Affect Care: None Preferred Language: Micronesian Communication Ability: Impaired Review of Systems See HPI for pertinent positives & negatives. and A total of 10 systems reviewed and were otherwise negative Physical Exam Vital Signs Vital Signs - 24 hr 08/10/18 13:50 08/10/18 15:03 08/10/18 15:07 Temperature 36.6 C Temperature Source Oral Sepsis Recent Fever Within 48 Hours No Sepsis Action Taken by Nursing No Action Required Pulse Rate 65 60 59 L Pulse Rate [Left Brachial] Pulse Rhythm Pulse Strength Normal Respiratory Rate 20 21 23 Respiratory Effort / Characteristics Non-Labored Respiratory Depth Normal Respiratory Pattern Regular Blood Pressure 151/85 H 122/69 Blood Pressure [Left Arm] Blood Pressure [Right Arm] Blood Pressure Mean 107 86 Blood Pressure Mean [Left Arm] Blood Pressure Mean [Right Arm] Pulse Oximetry 95 Oxygen Delivery Method Room Air 08/10/18 15:08 08/10/18 15:34 08/10/18 16:00 Temperature Temperature Source Sepsis Recent Fever Within 48 Hours Sepsis Action Taken by Nursing Pulse Rate 58 L 57 L 58 L Pulse Rate [Left Brachial] Pulse Rhythm Regular Pulse Strength Respiratory Rate 20 20 22 Respiratory Effort / Characteristics Respiratory Depth Respiratory Pattern Blood Pressure Blood Pressure [Left Arm] Blood Pressure [Right Arm] Blood Pressure Mean Blood Pressure Mean [Left Arm] Blood Pressure Mean [Right Arm] Pulse Oximetry 96 99 Oxygen Delivery Method Room Air 08/10/18 17:00 08/10/18 17:07 08/10/18 17:12 Temperature Temperature Source Sepsis Recent Fever Within 48 Hours Sepsis Action Taken by Nursing Pulse Rate 63 61 62 Pulse Rate [Left Brachial] Pulse Rhythm Pulse Strength Respiratory Rate 16 13 17 Respiratory Effort / Characteristics Non-Labored Spontaneous Respiratory Depth Normal Respiratory Pattern Blood Pressure 189/79 H 189/79 H Blood Pressure [Left Arm] Blood Pressure [Right Arm] Blood Pressure Mean 115 115 Blood Pressure Mean [Left Arm] Blood Pressure Mean [Right Arm] Pulse Oximetry 94 97 96 Oxygen Delivery Method Room Air 08/10/18 18:00 08/10/18 18:01 08/10/18 19:27 Temperature 36.6 C Temperature Source Oral Sepsis Recent Fever Within 48 Hours Sepsis Action Taken by Nursing Pulse Rate 70 69 Pulse Rate [Left Brachial] 69 Pulse Rhythm Pulse Strength Respiratory Rate 13 16 18 Respiratory Effort / Characteristics Respiratory Depth Respiratory Pattern Blood Pressure 194/103 H Blood Pressure [Left Arm] 204/96 H Blood Pressure [Right Arm] Blood Pressure Mean 133 Blood Pressure Mean [Left Arm] 132 Blood Pressure Mean [Right Arm] Pulse Oximetry 95 96 97 Oxygen Delivery Method Room Air 08/10/18 19:28 Temperature Temperature Source Sepsis Recent Fever Within 48 Hours Sepsis Action Taken by Nursing Pulse Rate Pulse Rate [Left Brachial] Pulse Rhythm Pulse Strength Respiratory Rate Respiratory Effort / Characteristics Respiratory Depth Respiratory Pattern Blood Pressure Blood Pressure [Left Arm] Blood Pressure [Right Arm] 204/101 H Blood Pressure Mean Blood Pressure Mean [Left Arm] Blood Pressure Mean [Right Arm] 135 Pulse Oximetry Oxygen Delivery Method GENERAL: Sitting up in bed, alert, ill appearing, disheveled, slow to respond. EYE EXAM: scleral icterus. OROPHARYNX: no exudate, no erythema, lips, buccal mucosa, and tongue normal and mucous membranes are moist NECK: supple, no nuchal rigidity, no adenopathy, non-tender LUNGS: Clear to auscultation. Normal chest wall mechanics HEART: no murmurs, S1 normal and S2 normal ABDOMEN: abdomen soft, non-tender, normo-active bowel, sounds, no masses, no rebound or guarding. BACK: Back is symmetrical on inspection and there is no deformity, no midline tenderness, no CVA tenderness. SKIN: no rashes and no bruising UPPER EXTREMITIES: upper extremities are grossly normal. LOWER EXTREMITIES: No pitting edema. NEURO EXAM: Normal sensorium, cranial nerves II-XII grossly intact, normal speech, no gross weakness of arms, no gross weakness of legs. Course ED COURSE: Vital signs were reviewed and are within normal limits. The patients medical record was reviewed The above diagnostic studies were performed and reviewed. ED treatments and interventions as stated above. 1451: The patient was evaluated in room B2. A complete history and physical examination was performed. 1652: I discussed my findings with the patient and he understands and agrees with the treatment plan. Based on the patients age, coexisting illnesses, exam and lab findings the decision to treat as an inpatient was made. The patient remained stable while under my care. The patient will be evaluated for further management. Administered Medications Acetaminophen (Tylenol) 650 mg PO Q4H PRN PRN Reason: pain/fever Stop: 09/09/18 19:15 Last Admin: 08/10/18 19:44 Dose: 650 mg Discontinued Medications Sodium Chloride (Nss 1000ml) 1,000 mls @ 999 mls/hr IV .Q1H1M ONE Stop: 08/10/18 15:57 Last Infusion: 08/10/18 17:06 Dose: 0 mls/hr Admin: 08/10/18 15:21 Dose: 999 mls/hr Piperacillin Sod/Tazobactam Sod (Zosyn) 4.5 gm in 120 mls @ 240 mls/hr IV NOW ONE Stop: 08/10/18 17:19 Last Infusion: 08/10/18 17:50 Dose: 0 mls/hr Admin: 08/10/18 17:06 Dose: 240 mls/hr Ioversol (Optiray 320 100ml) 94 ml IV ONCE PRN PRN Reason: Interaction Checking Stop: 08/14/18 16:11 Last Admin: 08/10/18 16:12 Dose: 94 ml Ondansetron HCl (Zofran) 4 mg IV NOW STA Stop: 08/10/18 17:01 Last Admin: 08/10/18 17:06 Dose: 4 mg Medical Decision Making Differential Diagnosis Differential diagnosis includes: gastritis, peptic ulcer disease, GERD, gallbladder disease, pancreatitis, small bowel obstruction, acute coronary syndrome, pericarditis, ischemic bowel, irritable bowel disease, irritable bowel syndrome, appendicitis, diverticulitis, malignancy, hernia, UTI, torsion, perforation, trauma, and kidney stones. Medical Records Attestation: I reviewed the patient's medical records. Home Medications Current Medication List: was personally reviewed by me Laboratory Data Attestation: I reviewed the patient's lab results. Result diagrams: 08/10/18 15:10 08/10/18 15:10 Lab Results 08/10/18 08/10/18 08/10/18 Range/Units 15:10 15:10 15:10 WBC 5.95 (4.8-10.8) K/uL RBC 4.20 L (4.7-6.1) M/uL Hgb 11.8 L (14.0-18.0) g/dL POC Hgb (14.0-18.0) g/dl Hct 35.2 L (42-52) % POC Hct (42-52) % MCV 83.8 (80-100) fL MCH 28.1 (25-34) pg MCHC 33.5 (32-36) g/dL RDW Std Deviation 53.8 H (36.4-46.3) fL RDW Coeff of [place] 17.4 H (11.5-14.5) % Plt Count 217 (130-400) K/uL MPV 11.3 H (7.4-10.4) fL Immature Gran % (Auto) 0.2 % Neut % (Auto) 70.0 % Lymph % (Auto) 17.6 % Marshall % (Auto) 11.4 % Eos % (Auto) 0.5 % Baso % (Auto) 0.3 % Immature Gran # (Auto) 0.01 (0.00-0.02) K/uL Neut # (Auto) 4.16 (1.4-6.5) K/uL Lymph # (Auto) 1.05 L (1.2-3.4) K/uL Marshall # (Auto) 0.68 H (0.11-0.59) K/uL Eos # (Auto) 0.03 (0-0.5) K/uL Baso # (Auto) 0.02 (0-0.2) K/uL PT 14.4 H (9.0-12.0) Seconds INR 1.5 H (0.9-1.1) POC Sodium (135-144) mEq/L Sodium 133 L (136-145) mmol/L POC Potassium (3.3-5.0) mEq/L Potassium 3.2 L (3.5-5.1) mmol/L POC Chloride (101-112) mEq/L Chloride 95 L (98-107) mmol/L Carbon Dioxide 32 (21-32) mmol/L POC Total CO2 (24-31) mEq/l Anion Gap 6.0 (3-11) POC Anion Gap (16-25) mmol/L POC BUN (7-18) mg/dl BUN 12 (7-18) mg/dl Creatinine 0.65 (0.6-1.4) mg/dl POC Creatinine (0.6-1.3) mg/dl Est Cr Clr Drug Dosing 98.2 ml/min Est GFR ( Amer) 110.3 Est GFR (Non-Af Amer) 95.2 BUN/Creatinine Ratio 18.0 (10-20) Glucose 258 H (70-99) mg/dl POC Glucose (70-99) POC Glucose (other) (70-99) mg/dl Calcium 8.6 (8.5-10.1) mg/dl POC Ioniz Calcium [place] (1.12-1.32) mmol/l Total Bilirubin 6.3 H (0.2-1) mg/dl AST 62 H (15-37) U/L ALT 27 (12-78) U/L Alkaline Phosphatase 560 H (45-117) U/L Ammonia (11-32) umol/L Total Protein 7.0 (6.4-8.2) gm/dl Albumin 3.0 L (3.4-5.0) gm/dl Globulin 4.0 (2.5-4.0) gm/dl Albumin/Globulin Ratio 0.8 L (0.9-2) Lipase 83 (73-393) U/L Urine Color Urine Appearance (Clear) Urine pH (4.5-7.5) Ur Specific [place] (1.000-1.030) Urine Protein (Negative) Urine Glucose (UA) (Negative) Urine Ketones (Negative) Urine Blood (Negative) Urine Nitrite (Negative) Urine Bilirubin (Negative) Urine Urobilinogen (Negative) Ur Leukocyte Esterase (Negative) Urine WBC (Auto) (0-5) /hpf Urine RBC (Auto) (0-4) /hpf U Hyaline Cast (Auto) (0-5) /lpf U Epithel Cells (Auto) (0-5) /lpf Urine Bacteria (Auto) (Negative) Urine Crystals (None Prsent) Calcium Oxalate Crystal (None Prsent) Urine Mucus (None Prsent) 08/10/18 08/10/18 08/10/18 Range/Units 15:13 15:30 17:00 WBC (4.8-10.8) K/uL RBC (4.7-6.1) M/uL Hgb (14.0-18.0) g/dL POC Hgb 13.3 L (14.0-18.0) g/dl Hct (42-52) % POC Hct 39 L (42-52) % MCV (80-100) fL MCH (25-34) pg MCHC (32-36) g/dL RDW Std Deviation (36.4-46.3) fL RDW Coeff of [place] (11.5-14.5) % Plt Count (130-400) K/uL MPV (7.4-10.4) fL Immature Gran % (Auto) % Neut % (Auto) % Lymph % (Auto) % Marshall % (Auto) % Eos % (Auto) % Baso % (Auto) % Immature Gran # (Auto) (0.00-0.02) K/uL Neut # (Auto) (1.4-6.5) K/uL Lymph # (Auto) (1.2-3.4) K/uL Marshall # (Auto) (0.11-0.59) K/uL Eos # (Auto) (0-0.5) K/uL Baso # (Auto) (0-0.2) K/uL PT (9.0-12.0) Seconds INR (0.9-1.1) POC Sodium 136 (135-144) mEq/L Sodium (136-145) mmol/L POC Potassium 3.3 (3.3-5.0) mEq/L Potassium (3.5-5.1) mmol/L POC Chloride 92 L (101-112) mEq/L Chloride (98-107) mmol/L Carbon Dioxide (21-32) mmol/L POC Total CO2 29 (24-31) mEq/l Anion Gap (3-11) POC Anion Gap 19.0 (16-25) mmol/L POC BUN 11 (7-18) mg/dl BUN (7-18) mg/dl Creatinine (0.6-1.4) mg/dl POC Creatinine 0.5 L (0.6-1.3) mg/dl Est Cr Clr Drug Dosing ml/min Est GFR ( Amer) Est GFR (Non-Af Amer) BUN/Creatinine Ratio (10-20) Glucose (70-99) mg/dl POC Glucose (70-99) POC Glucose (other) 260 H (70-99) mg/dl Calcium (8.5-10.1) mg/dl POC Ioniz Calcium [place] 1.07 L (1.12-1.32) mmol/l Total Bilirubin (0.2-1) mg/dl AST (15-37) U/L ALT (12-78) U/L Alkaline Phosphatase (45-117) U/L Ammonia 51.2 H (11-32) umol/L Total Protein (6.4-8.2) gm/dl Albumin (3.4-5.0) gm/dl Globulin (2.5-4.0) gm/dl Albumin/Globulin Ratio (0.9-2) Lipase (73-393) U/L Urine Color Denise Urine Appearance Slightly Cloudy H (Clear) Urine pH (4.5-7.5) Ur Specific [place] > 1.035 H (1.000-1.030) Urine Protein (Negative) Urine Glucose (UA) (Negative) Urine Ketones (Negative) Urine Blood (Negative) Urine Nitrite (Negative) Urine Bilirubin (Negative) Urine Urobilinogen (Negative) Ur Leukocyte Esterase (Negative) Urine WBC (Auto) 1-5 (0-5) /hpf Urine RBC (Auto) 0-4 (0-4) /hpf U Hyaline Cast (Auto) 1-5 (0-5) /lpf U Epithel Cells (Auto) 10-20 H (0-5) /lpf Urine Bacteria (Auto) Negative (Negative) Urine Crystals Calcium Oxalate H (None Prsent) Calcium Oxalate Crystal Present H (None Prsent) Urine Mucus Present H (None Prsent) 08/10/18 Range/Units 19:22 WBC (4.8-10.8) K/uL RBC (4.7-6.1) M/uL Hgb (14.0-18.0) g/dL POC Hgb (14.0-18.0) g/dl Hct (42-52) % POC Hct (42-52) % MCV (80-100) fL MCH (25-34) pg MCHC (32-36) g/dL RDW Std Deviation (36.4-46.3) fL RDW Coeff of [place] (11.5-14.5) % Plt Count (130-400) K/uL MPV (7.4-10.4) fL Immature Gran % (Auto) % Neut % (Auto) % Lymph % (Auto) % Marshall % (Auto) % Eos % (Auto) % Baso % (Auto) % Immature Gran # (Auto) (0.00-0.02) K/uL Neut # (Auto) (1.4-6.5) K/uL Lymph # (Auto) (1.2-3.4) K/uL Marshall # (Auto) (0.11-0.59) K/uL Eos # (Auto) (0-0.5) K/uL Baso # (Auto) (0-0.2) K/uL PT (9.0-12.0) Seconds INR (0.9-1.1) POC Sodium (135-144) mEq/L Sodium (136-145) mmol/L POC Potassium (3.3-5.0) mEq/L Potassium (3.5-5.1) mmol/L POC Chloride (101-112) mEq/L Chloride (98-107) mmol/L Carbon Dioxide (21-32) mmol/L POC Total CO2 (24-31) mEq/l Anion Gap (3-11) POC Anion Gap (16-25) mmol/L POC BUN (7-18) mg/dl BUN (7-18) mg/dl Creatinine (0.6-1.4) mg/dl POC Creatinine (0.6-1.3) mg/dl Est Cr Clr Drug Dosing ml/min Est GFR ( Amer) Est GFR (Non-Af Amer) BUN/Creatinine Ratio (10-20) Glucose (70-99) mg/dl POC Glucose 228 H (70-99) POC Glucose (other) (70-99) mg/dl Calcium (8.5-10.1) mg/dl POC Ioniz Calcium [place] (1.12-1.32) mmol/l Total Bilirubin (0.2-1) mg/dl AST (15-37) U/L ALT (12-78) U/L Alkaline Phosphatase (45-117) U/L Ammonia (11-32) umol/L Total Protein (6.4-8.2) gm/dl Albumin (3.4-5.0) gm/dl Globulin (2.5-4.0) gm/dl Albumin/Globulin Ratio (0.9-2) Lipase (73-393) U/L Urine Color Urine Appearance (Clear) Urine pH (4.5-7.5) Ur Specific [place] (1.000-1.030) Urine Protein (Negative) Urine Glucose (UA) (Negative) Urine Ketones (Negative) Urine Blood (Negative) Urine Nitrite (Negative) Urine Bilirubin (Negative) Urine Urobilinogen (Negative) Ur Leukocyte Esterase (Negative) Urine WBC (Auto) (0-5) /hpf Urine RBC (Auto) (0-4) /hpf U Hyaline Cast (Auto) (0-5) /lpf U Epithel Cells (Auto) (0-5) /lpf Urine Bacteria (Auto) (Negative) Urine Crystals (None Prsent) Calcium Oxalate Crystal (None Prsent) Urine Mucus (None Prsent) Imaging Data Radiologist's Impression: Radiology results as stated below per my review and the radiologist's interpretation: ABDOMEN AND PELVIS CT WITH IV CONTRAST CT DOSE: 443.88 mGy.cm HISTORY: Follow-up study in a patient with history of pancreatic carcinoma jaundice known ca TECHNIQUE: Multiaxial CT images of the abdomen and pelvis were performed following the use of intravenous contrast. A dose lowering technique was utilized adhering to the principles of ALARA. COMPARISON STUDY: CT abdomen and pelvis 06/10/2018, 04/15/2018. FINDINGS: Metastatic mass about the lateral basal segment right lower lobe abutting the pleural surface now measures 4.4 x 2.4 cm, previously 3.5 x 1.9 cm. Mild dependent subsegmental bibasilar atelectasis. No pneumatosis or pneumoperitoneum. Imaged inferior cardiac chambers are moderately enlarged. Progressively worsened intrahepatic biliary ductal dilation. There also appears be mild dilation of the common bile duct with abrupt narrowing in the distribution of the pancreatic head. The gallbladder also demonstrates progressive distention. No associated gallbladder wall thickening or cholelithiasis identified. Spleen and right adrenal gland are unremarkable. Mild thickening about the left adrenal gland. Large infiltrative mass of the pancreatic head redemonstrated measuring approximately 7.6 x 5.1 cm in AP and transverse dimensions respectively, previously measuring approximately 7.6 x 5.1 cm when measured in a similar fashion on study from 06/10/2018. Mass again demonstrates vascular invasion about the portal splenic confluence with adjacent collateral flow. There also appears to be vascular encasement about the common hepatic, right gastric and proximal splenic arteries with additional tumor encasement about the superior mesenteric artery. There is abutment with possible tumor invasion about the distal lesser curvature of the stomach the region of the gastric antrum/pylorus on image 134 series 3. Kidneys are unremarkable. Mild circumferential wall thickening about the urinary bladder. Small fat filled bilateral hernias. Moderate calcified plaque about the abdominal aorta without aneurysm. Diastases recti with tiny fat filled periumbilical hernia. Mild circumferential wall thickening about the mid and distal sigmoid and rectum with adjacent inflammatory stranding. No small bowel obstruction. Air-filled appendix appears noninflamed. Progressed peritoneal/omental nodules/masses throughout the abdomen and pelvis. For example , 3.7 cm omental mass about the bilateral mid abdomen, previously measuring 2.4 cm. Soft tissues are unremarkable. Multilevel degenerative changes about the spine, pelvis and hips. No suspicious lytic or blastic bony lesions to suggest osseous metastasis. Remote fracture about the sacrum. IMPRESSION: 1. Interval development of intrahepatic and extrahepatic biliary ductal dilation , likely secondary to biliary invasion/obstruction secondary to the known pancreatic head mass which has not significantly changed in size from 06/10/2018. 2. Vascular encasement/occlusion with associated collaterals as detailed above. Additionally, the mass abuts and possibly invades the distal stomach within the distribution of the gastric antrum/pylorus. 3. Progressive omental/peritoneal metastatic disease. 4. Mild wall thickening with surrounding inflammation about the sigmoid colon and rectum compatible with a nonspecific colitis/proctitis. 5. Increased size of the metastatic mass of the right lower lobe. 6. Additional findings as above. No significant abnormality identified within the abdomen or pelvis. Electronically signed by: Michele Barksdale M.D. 08/10/2018 4:35 PM Blood Pressure Blood Pressure Findings: Normal blood pressure Blood Pressure Disposition: further management by hospitalist ERNESTO Narrative Patient is a 73-year-old male presents the ER for jaundice. He has a history of pancreatic head cancer who recently had a scope at [place] over a week ago. He went on a cruise and he has progressively become more jaundiced and weaker. Labs were obtained and showed no significant leukocytosis or anemia. INR was elevated at 1.5. Potassium at 3.2. Creatinine was normal. T bili was 6.3. Alk phos was significantly elevated at 560. AST was elevated at 62. Lipase is normal. UA was difficult to interpret secondary to elevated bilirubin. CT of the abdomen confirms a dilated common biliary duct along with a mass likely encroaching on the stomach and vessels. This is discussed with the patient and family as well as GI and the hospitalist. They are updated bedside. Patient was given fluids. He was admitted to the hospital for further workup. Impression & Plan Biliary obstruction, Pancreatic adenocarcinoma, Hypertension Discharge Plan Visit Data *Final* Discharge Date/Time: 08/10/18 19:00 Chief Complaint: Abnormal Labs/Diagnostic Testing Stated Complaint: JAUNDICE, BRYAN STOOLS, ABNORMAL LIVER ENZYMES ED Provider: Jesus Coleman Discharge Problem: Biliary obstruction, Pancreatic adenocarcinoma, Hypertension Patient Disposition: Admitted As Inpatient Discharge Instructions Interventions: ED Discharge Assessment Last Done: 08/10/18 19:00 The scribe's documentation has been prepared under my direction and personally reviewed by me in its entirety. I confirm that the note above accurately reflects all work, treatment, procedures, and medical decision making performed by me.
[2018-08-10] MEDS ORDERED: INSULIN GLARGINE SOLOSTAR 100 UNITS/ML 3 ML PEN SQ ONE (21:00)
[2018-08-10] MEDS: POTASSIUM CHLORIDE 40 MEQ in SODIUM CHLORIDE 0.9% 1000ML 1,000 ML IV SCH (21:19)
[2018-08-10] MEDS: PANTOprazole 40 MG TAB PO SCH (21:20)
[2018-08-10] MEDS: ROPINIROLE HCL 0.25 MG TABLET PO SCH (21:20)
[2018-08-10] MEDS: DONEPEZIL HCL 10 MG TAB PO SCH (21:21)
[2018-08-10] MEDS: METOPROLOL TARTRATE 25 MG TAB PO SCH (21:21)
[2018-08-10] MEDS: IPRATROPIUM BROMIDE NASAL SPRAY 0.06% 15ML SCH (21:21)
[2018-08-10] MEDS: GABAPENTIN 100 MG CAP PO SCH (21:21)
[2018-08-10] MEDS: CARBIDOPA/LEVODOPA 50/200MG EXT REL TAB PO SCH (21:21)
[2018-08-10] MEDS: INSULIN ASPART 100 UNITS/ML 3 ML PEN SC SCH (21:22)
[2018-08-10] MEDS: RAPAFLO: ORDER AWAITING ACTION SCH (23:37)
[2018-08-11] MEDS ORDERED: HEPARIN 100 UNIT/ML 5ML FLUSH FLUSH PRN (00:56)
[2018-08-11 06:30] LABS: Hematocrit (blood only) 35.4 % (42-52); Mean Corpuscular Hgb Conc 33.9 g/dL (32-36); Mean Corpuscular Volume 83.7 fL (80-100); Mean Platelet Volume 11.5 fL (7.4-10.4); Platelet Count 213 K/uL (130-400); RDW Coefficient of Variation 17.3 % (11.5-14.5); Red Blood Count 4.23 M/uL (4.7-6.1); White Blood Count 5.81 K/uL (4.8-10.8)
[2018-08-11 06:44] LABS: INR 1.4 (0.9-1.1); Prothrombin Time 14.1 Seconds (9.0-12.0)
[2018-08-11 06:52] LABS: Albumin Level 2.8 gm/dl (3.4-5.0); BUN Creatinine Ratio 12.8 (10-20); Calcium 8.5 mg/dl (8.5-10.1); Creatinine Clr Calc Pharmacy 106.4 ml/min; Est GFR (Non-African American) 98.4; Magnesium 1.8 mg/dl (1.8-2.4); Potassium 3.2 mmol/L (3.5-5.1)
[2018-08-11 06:59] LABS: Albumin Globulin Ratio 0.7 (0.9-2); Bilirubin,Total 7.2 mg/dl (0.2-1); Globulin 3.8 gm/dl (2.5-4.0); Total Protein 6.6 gm/dl (6.4-8.2)
[2018-08-11 07:08] LABS: Estimated Average Glucose 197 mg/dl
[2018-08-11] MEDS: INSULIN ASPART 100 UNITS/ML 3 ML PEN SC SCH ×4 (08:14→20:20)
[2018-08-11] MEDS: POTASSIUM CHLORIDE 40 MEQ in SODIUM CHLORIDE 0.9% 1000ML 1,000 ML IV SCH (08:14)
[2018-08-11] MEDS: RAPAFLO: ORDER AWAITING ACTION SCH ×2 (08:14→17:16)
[2018-08-11] MEDS: IPRATROPIUM BROMIDE NASAL SPRAY 0.06% 15ML SCH ×3 (08:15→17:16)
[2018-08-11] MEDS: METOPROLOL TARTRATE 25 MG TAB PO SCH ×2 (08:17→20:22)
[2018-08-11] MEDS: CARBIDOPA/LEVODOPA 25-250 1 EA TAB PO SCH ×3 (08:18→17:16)
[2018-08-11] MEDS: ROPINIROLE HCL 0.25 MG TABLET PO SCH ×3 (08:18→20:18)
[2018-08-11] MEDS: PANTOprazole 40 MG TAB PO SCH ×2 (08:18→20:18)
[2018-08-11] MEDS ORDERED: ONDANSETRON INJ 2 MG/ML 2 ML VIAL IV PRN (08:22)
[2018-08-11] MEDS ORDERED: ONDANSETRON INJ 2 MG/ML 2 ML VIAL ONE (08:25)
[2018-08-11] MEDS ORDERED: PROCHLORPERAZINE 10 MG in SYRINGE 8 ML IV PRN (08:38)
[2018-08-11] MEDS ORDERED: POTASSIUM CHLORIDE 20 MEQ in SODIUM CHLORIDE 0.45 % 1,000 ML IV SCH (08:45)
--- NOTE | 2018-08-11 08:48 | Pharmacy Report ---
Glycemic Control Consultation - Date of Service August 11, 2018 - Scope Scope: Glycemic Pharmacist consulted by Dr Castro on [2--19] for glycemic control and to write orders per [facility] inpatient glycemic control protocol - Objective Weight: 80.9 kg Accuchecks BSG (last 24hrs): 08/10/18 08/10/18 08/10/18 15:10 15:13 19:22 Glucose 258 H POC Glucose 228 H POC Glucose (other) 260 H 08/11/18 08/11/18 05:19 07:31 Glucose 113 H POC Glucose 117 H POC Glucose (other) Laboratory Data (last 24hrs): 08/10/18 08/11/18 15:10 05:19 Potassium 3.2 L 3.2 L Carbon Dioxide 32 31 Anion Gap 6.0 8.0 Creatinine 0.65 0.60 Est Cr Clr Drug Dosing 98.2 106.4 HbA1c: Hemoglobin A1c 8.5 % (4.5-5.6) H 08/11/18 05:19 - Recent Pertinent Medications Outpatient Anti-diabetic Regimen: * Lantus 30-40 units Qpm, Humalog TIDM (up to 30 units/day), metformin 500 q PM * A1c = [8.5] % [2-5-19] Risk Factors for Insulin Resistance: * Diet: NPO for today/ ERCP planned - Assessment & Plan Assessment & Plan: ASSESSMENT: * 73 year old male admitted with biliary obstruction/jaundice. PMH significant for DM2, CHF, pancreatic cancer, CAD, parkinsons. * Plan is for ERCP today, patient continue to remain NPO for procedure * Received 15 units of Lantus last evening - fasting BSG this am ~113 mg/dL ; will give 15 units of Lantus this morning (which is reduced from home dosing) and add scale for this evening * Previous data from other admissions indicate patient typically requires about ~23 to 30 units of Lantus while NPO PLAN FOR INPATIENT GLYCEMIC CONTROL: * Pt is maintained on oral antidiabetic agents as an outpatient * Oral agents are not recommended for inpatient use d/t drug interactions, changing PO intake, and difficulty titrating for acute hyper/hypoglycemia. ADA recommends re-initiating outpatient oral agents 1-2 days prior to discharge if/ when appropriate if they were held on admission. * Will hold oral agents for admission and utilize SQ basal bolus insulin regimen which is the recommended regimen for inpatient glycemic control. * Will initiate weight based insulin dosing for insulin ramon patient and titrate based on BSG trends. * Basal insulin * Lantus 15 units this am; then scale for this evening for Lantus -BSG less than 100 - hold Lantus -BSG 100-160 - Lantus 8 units -BSG greater than 160 - Lantus 15 units * Bolus insulin * NovoLog per scale ACHS or Q6hrs while NPO * Goal Range: Low 110 mg/dL - High 150 mg/dL * Correction Factor: 30 mg/dL/unit * Nutritional / Prandial insulin per carb ratio of 1 unit per 10 grams CHO consumed * Please note that the plan above was derived based on current level of insulin resistance and hospital stress. These recommendations are appropriate for inpatient admission only. Plan of care upon discharge will need to be reassessed to avoid potential outpatient hypo/hyperglycemia. Thank you.
[2018-08-11] MEDS ORDERED: INSULIN GLARGINE SOLOSTAR 100 UNITS/ML 3 ML PEN SC SCH ×2 (09:00→21:00)
[2018-08-11] MEDS ORDERED: LISINOPRIL 10 MG TAB PO SCH (09:00)
[2018-08-11] MEDS ORDERED: FINASTERIDE 5 MG TAB PO SCH (09:00)
[2018-08-11] MEDS: POTASSIUM CHLORIDE / WTR 10 MEQ/100 ML PLCT IV SCH ×3 (10:22→12:56)
--- NOTE | 2018-08-11 13:12 | Oncology Consultation ---
Date of Consultation August 11, 2018 Assessment & Plan (1) Biliary obstruction: He will require an ERCP. Dr. Thomas is due to see him later today to determine if the procedure can be done here of if he needs transfer to [facility]. Present on Admission?: Yes (2) Pancreatic cancer: Mr. Caraballo has progressive metastatic disease. He was responding to chemotherapy but tolerating it poorly when we stopped in the fall. We could try that regimen again, but I am not sure he will want to do that. Other chemotherapy options could be available, but he is heavily pretreated and we may have difficulty finding a good option for him. This issue can wait until his biliary obstruction is relieved. If it cannot be, he would certainly be a hospice candidate. Present on Admission?: Yes History of Present Illness Reason for Consultation: Pancreatic cancer Biliary obstruction Attending Physician: Katiana Borges MD History of Present Illness Mr. Caraballo is a 73 year old gentleman who is well known to me. He has a history of pancreatic adenocarcinoma that dates back to 2012. He was metastatic at diagnosis but has had a surprisingly indolent course. He has been on and off of chemotherapy over the last 5 years and has done well. His most recent regimen was 5-FU/Leucovorin/Liposomal irinotecan starting 04/17/16. He continued treatment until July,. He then had a treatment holiday until December. He restarted in January and continued to April, but was tolerating it poorly. At that time, we stopped therapy and discussed obtaining a biopsy to evaluate his candidacy for non-chemotherapy treatments. This took some time to arrange and eventually took place last month. Unfortunately, the biopsy did not contain malignant cells. He just returned from a cruise, where his family noted that he was more jaundiced. He also reported dark colored urine. He presented to the ER yesterday with these symptoms and was found to have a total bilirubin of 6.3. CT A/P demonstrated modestly progressive disease and interval development of intrahepatic and extrahepatic biliary ductal dilation, likely secondary to biliary invasion/obstruction secondary to the known pancreatic head mass. He also reports feeling nauseous and tired. Allergies Allergy/AdvReac Type Severity Reaction Status Date / Time codeine AdvReac Mild GI SYMPTOMS Verified 10/09/17 15:31 Home Medications Home Medications Medication Instructions Recorded Confirmed Type acetaminophen [Tylenol 8 Hour] 2 tab PO Q8H PRN 10/09/18 02/04/19 History aspirin 81 mg PO DAILY 04/14/18 08/10/18 History atorvastatin 10 mg PO Q OTHER DAY 04/14/18 08/10/18 History clopidogrel 75 mg PO DAILY 04/14/18 08/10/18 History donepezil 10 mg PO HS 04/14/18 08/10/18 History finasteride 5 mg PO DAILY 04/14/18 08/10/18 History furosemide 20 mg PO DAILY PRN 04/14/18 08/10/18 History lidocaine 1 patch TOPICAL DAILY PRN 04/14/18 08/10/18 History ropinirole 0.5 mg PO TID 04/14/18 08/10/18 History silodosin [Rapaflo] 8 mg PO QPM 04/14/18 08/10/18 History carbidopa-levodopa 1 tab PO HS #30 tab 04/21/18 08/10/18 Rx carbidopa-levodopa 1.5 tab PO 4XDQ3H #120 tab 04/21/18 08/10/18 Rx lisinopril [Zestril] 10 mg PO QAM #30 tab 04/21/18 08/10/18 Rx loperamide 2 mg PO Q3H PRN #15 cap 04/21/18 08/10/18 Rx metoprolol tartrate 25 mg PO BID #60 tab 04/21/18 08/10/18 Rx pantoprazole 40 mg PO BID #60 tab 04/21/18 08/10/18 Rx tramadol 50 mg PO TID PRN #3 tab 04/21/18 08/10/18 Rx cholecalciferol (vitamin D3) 2,000 unit PO DAILY 08/10/18 08/10/18 History [Vitamin D3] colestipol [Colestid] 1 g PO QAM 08/10/18 08/10/18 History gabapentin 300 mg PO TID 08/10/18 08/10/18 History insulin glargine [Lantus Solostar 30 - 40 units SUBCUT QPM 08/10/18 08/10/18 History U-100 Insulin] insulin lispro [Humalog KwikPen 0 units SUBCUT TIDM 08/10/18 08/10/18 History Insulin] ipratropium bromide 2 spray INTRANASAL TID 08/10/18 08/10/18 History metformin 500 mg PO QPM 08/10/18 08/10/18 History mupirocin 1 applic TOPICAL BID 08/10/18 08/10/18 History ondansetron HCl [Zofran] 8 mg PO TID PRN 08/10/18 08/10/18 History potassium chloride 10 meq PO QPM 08/10/18 08/10/18 History prochlorperazine maleate 10 mg PO Q6 PRN 08/10/18 08/10/18 History [Compazine] Patient History Medical History Chronic diastolic CHF (congestive heart failure) Acute respiratory failure with hypoxia Hypokalemia Pneumonia Chest pain CAESAR (acute kidney injury) (Acute) Hypotension (Acute) Elevated troponin (Acute) Chemotherapy induced nausea and vomiting (Acute) Generalized weakness (Acute) Diabetes mellitus (Chronic) CAD (coronary artery disease) (Chronic) Hypertension (Chronic) Parkinson disease (Chronic) Pancreatic cancer (Chronic) BPH (benign prostatic hyperplasia) (Chronic) NSTEMI (non-ST elevated myocardial infarction) (Resolved) Surgical History History of coronary artery stent placement (Chronic) Social History Current Living Situation: Spouse Current Living Situation Comment: Home with Other Information That Helps Us Care for You: No Feels Safe at Home: Yes Safety Concerns: Feels Safe At This Time Smoking Status: Former smoker Cigarettes per Day: 1987 Hx Alcohol Use: Yes Alcohol type: beer Alcohol Intake Frequency: a few times a week Hx Substance Use: No Beliefs That Will Affect Care: None Communication Ability: Effective Review of Systems Constitutional: + fatigue and + weakness; no fever and no chills Eyes: no worsening vision Respiratory: no cough and no dyspnea Cardiovascular: no chest pain, no palpitations and no edema Gastrointestinal: as per Subjective / HPI Musculoskeletal: no back pain Integumentary: + yellowing of the skin; no rash Neurologic: no localized weakness and no headache(s) Hematologic / Lymphatic: no easy bleeding and no easy bruising Physical Exam 2 Vital Signs (Past 24 Hours): Last Vital Signs Temp 36.6 C 08/11/18 06:36 Pulse 61 08/11/18 06:36 Resp 18 08/11/18 06:36 BP 185/86 H 08/11/18 06:36 Pulse Ox 96 08/11/18 06:36 Constitutional: + ill appearing (chronically); no acute distress Eyes: + anicteric sclerae ENMT: external ear and nose normal, oropharynx normal Respiratory: normal respiratory effort, lungs clear to auscultation Cardiovascular: RRR, no murmur, no edema Gastrointestinal (Abdomen): normal bowel sounds, soft, nontender, no hepatosplenomegaly Skin: + jaundice Results & Data Laboratory Results Abnormal lab results 08/10/18 08/10/18 08/10/18 Range/Units 15:10 15:10 15:10 RBC 4.20 L (4.7-6.1) M/uL Hgb 11.8 L (14.0-18.0) g/dL POC Hgb (14.0-18.0) g/dl Hct 35.2 L (42-52) % POC Hct (42-52) % RDW Std Deviation 53.8 H (36.4-46.3) fL RDW Coeff of [place]avan 17.4 H (11.5-14.5) % MPV 11.3 H (7.4-10.4) fL Lymph # (Auto) 1.05 L (1.2-3.4) K/uL Fergus # (Auto) 0.68 H (0.11-0.59) K/uL PT 14.4 H (9.0-12.0) Seconds INR 1.5 H (0.9-1.1) Sodium 133 L (136-145) mmol/L Potassium 3.2 L (3.5-5.1) mmol/L POC Chloride (101-112) mEq/L Chloride 95 L (98-107) mmol/L POC Creatinine (0.6-1.3) mg/dl Glucose 258 H (70-99) mg/dl POC Glucose (70-99) POC Glucose (other) (70-99) mg/dl Hemoglobin A1c (4.5-5.6) % POC Ioniz Calcium [place]ina (1.12-1.32) mmol/l Total Bilirubin 6.3 H (0.2-1) mg/dl AST 62 H (15-37) U/L Alkaline Phosphatase 560 H (45-117) U/L Ammonia (11-32) umol/L Albumin 3.0 L (3.4-5.0) gm/dl Albumin/Globulin Ratio 0.8 L (0.9-2) Urine Appearance (Clear) Ur Specific Winter (1.000-1.030) U Epithel Cells (Auto) (0-5) /lpf Urine Crystals (None Prsent) Calcium Oxalate Crystal (None Prsent) Urine Mucus (None Prsent) 08/10/18 08/10/18 08/10/18 Range/Units 15:13 15:30 17:00 RBC (4.7-6.1) M/uL Hgb (14.0-18.0) g/dL POC Hgb 13.3 L (14.0-18.0) g/dl Hct (42-52) % POC Hct 39 L (42-52) % RDW Std Deviation (36.4-46.3) fL RDW Coeff of [place] (11.5-14.5) % MPV (7.4-10.4) fL Lymph # (Auto) (1.2-3.4) K/uL Fergus # (Auto) (0.11-0.59) K/uL PT (9.0-12.0) Seconds INR (0.9-1.1) Sodium (136-145) mmol/L Potassium (3.5-5.1) mmol/L POC Chloride 92 L (101-112) mEq/L Chloride (98-107) mmol/L POC Creatinine 0.5 L (0.6-1.3) mg/dl Glucose (70-99) mg/dl POC Glucose (70-99) POC Glucose (other) 260 H (70-99) mg/dl Hemoglobin A1c (4.5-5.6) % POC Ioniz Calcium [place] 1.07 L (1.12-1.32) mmol/l Total Bilirubin (0.2-1) mg/dl AST (15-37) U/L Alkaline Phosphatase (45-117) U/L Ammonia 51.2 H (11-32) umol/L Albumin (3.4-5.0) gm/dl Albumin/Globulin Ratio (0.9-2) Urine Appearance Slightly Cloudy H (Clear) Ur Specific Winter > 1.035 H (1.000-1.030) U Epithel Cells (Auto) 10-20 H (0-5) /lpf Urine Crystals Calcium Oxalate H (None Prsent) Calcium Oxalate Crystal Present H (None Prsent) Urine Mucus Present H (None Prsent) 08/10/18 08/11/18 08/11/18 Range/Units 19:22 05:19 05:19 RBC 4.23 L (4.7-6.1) M/uL Hgb 12.0 L (14.0-18.0) g/dL POC Hgb (14.0-18.0) g/dl Hct 35.4 L (42-52) % POC Hct (42-52) % RDW Std Deviation 53.0 H (36.4-46.3) fL RDW Coeff of [place]avan 17.3 H (11.5-14.5) % MPV 11.5 H (7.4-10.4) fL Lymph # (Auto) (1.2-3.4) K/uL Fergus # (Auto) (0.11-0.59) K/uL PT (9.0-12.0) Seconds INR (0.9-1.1) Sodium (136-145) mmol/L Potassium 3.2 L (3.5-5.1) mmol/L POC Chloride (101-112) mEq/L Chloride (98-107) mmol/L POC Creatinine (0.6-1.3) mg/dl Glucose 113 H (70-99) mg/dl POC Glucose 228 H (70-99) POC Glucose (other) (70-99) mg/dl Hemoglobin A1c (4.5-5.6) % POC Ioniz Calcium [place]ina (1.12-1.32) mmol/l Total Bilirubin 7.2 H (0.2-1) mg/dl AST 66 H (15-37) U/L Alkaline Phosphatase 536 H (45-117) U/L Ammonia (11-32) umol/L Albumin 2.8 L (3.4-5.0) gm/dl Albumin/Globulin Ratio 0.7 L (0.9-2) Urine Appearance (Clear) Ur Specific Winter (1.000-1.030) U Epithel Cells (Auto) (0-5) /lpf Urine Crystals (None Prsent) Calcium Oxalate Crystal (None Prsent) Urine Mucus (None Prsent) 08/11/18 08/11/18 08/11/18 Range/Units 05: 05: 07:31 RBC (4.7-6.1) M/uL Hgb (14.0-18.0) g/dL POC Hgb (14.0-18.0) g/dl Hct (42-52) % POC Hct (42-52) % RDW Std Deviation (36.4-46.3) fL RDW Coeff of [place] (11.5-14.5) % MPV (7.4-10.4) fL Lymph # (Auto) (1.2-3.4) K/uL Fergus # (Auto) (0.11-0.59) K/uL PT 14.1 H (9.0-12.0) Seconds INR 1.4 H (0.9-1.1) Sodium (136-145) mmol/L Potassium (3.5-5.1) mmol/L POC Chloride (101-112) mEq/L Chloride (98-107) mmol/L POC Creatinine (0.6-1.3) mg/dl Glucose (70-99) mg/dl POC Glucose 117 H (70-99) POC Glucose (other) (70-99) mg/dl Hemoglobin A1c 8.5 H (4.5-5.6) % POC Ioniz Calcium [place] (1.12-1.32) mmol/l Total Bilirubin (0.2-1) mg/dl AST (15-37) U/L Alkaline Phosphatase (45-117) U/L Ammonia (11-32) umol/L Albumin (3.4-5.0) gm/dl Albumin/Globulin Ratio (0.9-2) Urine Appearance (Clear) Ur Specific Winter (1.000-1.030) U Epithel Cells (Auto) (0-5) /lpf Urine Crystals (None Prsent) Calcium Oxalate Crystal (None Prsent) Urine Mucus (None Prsent) 08/11/18 Range/Units 11:30 RBC (4.7-6.1) M/uL Hgb (14.0-18.0) g/dL POC Hgb (14.0-18.0) g/dl Hct (42-52) % POC Hct (42-52) % RDW Std Deviation (36.4-46.3) fL RDW Coeff of [place] (11.5-14.5) % MPV (7.4-10.4) fL Lymph # (Auto) (1.2-3.4) K/uL [place]ergus # (Auto) (0.11-0.59) K/uL PT (9.0-12.0) Seconds INR (0.9-1.1) Sodium (136-145) mmol/L Potassium (3.5-5.1) mmol/L POC Chloride (101-112) mEq/L Chloride (98-107) mmol/L POC Creatinine (0.6-1.3) mg/dl Glucose (70-99) mg/dl POC Glucose 105 H (70-99) POC Glucose (other) (70-99) mg/dl Hemoglobin A1c (4.5-5.6) % POC Ioniz Calcium [place] (1.12-1.32) mmol/l Total Bilirubin (0.2-1) mg/dl AST (15-37) U/L Alkaline Phosphatase (45-117) U/L Ammonia (11-32) umol/L Albumin (3.4-5.0) gm/dl Albumin/Globulin Ratio (0.9-2) Urine Appearance (Clear) Ur Specific Winter (1.000-1.030) U Epithel Cells (Auto) (0-5) /lpf Urine Crystals (None Prsent) Calcium Oxalate Crystal (None Prsent) Urine Mucus (None Prsent) Diagnostic Findings CT A/P 08/10/18: IMPRESSION: 1. Interval development of intrahepatic and extrahepatic biliary ductal dilation , likely secondary to biliary invasion/obstruction secondary to the known pancreatic head mass which has not significantly changed in size from 06/10/2018. 2. Vascular encasement/occlusion with associated collaterals as detailed above. Additionally, the mass abuts and possibly invades the distal stomach within the distribution of the gastric antrum/pylorus. 3. Progressive omental/peritoneal metastatic disease. 4. Mild wall thickening with surrounding inflammation about the sigmoid colon and rectum compatible with a nonspecific colitis/proctitis. 5. Increased size of the metastatic mass of the right lower lobe. 6. Additional findings as above. _ (1) Pancreatic cancer Pancreatic malignancy location: head of pancreas Qualified Code(s): C25.0 - Malignant neoplasm of head of pancreas
[2018-08-11] MEDS ORDERED: POTASSIUM CHLORIDE 40 MEQ in D5W AND NSS 1,000 ML IV SCH (15:00)
--- NOTE | 2018-08-11 17:55 | Discharge Summary ---
Date of Service August 11, 2018 Admission HPI Per Admitting Provider 73yo M w/ hx of pancreatic cancer who presents with jaundice. He and his report that in July, he was at [facility] for a biopsy and was in a good state of health. After returning from a cruise, family noted that he was more jaundice and had labs done. He reports that he has some stomach pain, but this is constant. 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 He had a CT scan done which showed a pancreatic mass obstructing his CBD. He denies any fever, chills, sweats. Principal Diagnosis Obstructive jaundice, metastatic pancreatic cancer Discharge Exam Constitutional WD/WN, vitals as above (Masked facies) Eyes PERRL, conjunctivae normal, anicteric sclerae ENMT external ear and nose normal, oropharynx normal Neck trachea midline, no thyromegaly Respiratory normal respiratory effort, lungs clear to auscultation Cardiovascular RRR, no murmur, no edema Gastrointestinal (Abdomen) Inspection/Auscultation: abdomen normal to inspection and normal bowel sounds; abdomen not distended Percussion/Palpation: + abdomen tender (Mild in the epigastric region without guarding or rebound tenderness) Musculoskeletal Extremities: extremities normal to inspection; no cyanosis and no clubbing Skin no rashes, warm and dry Neurologic moves all extremities and awake; no focal motor deficits Psychiatric A+Ox3, euthymic affect Discharge Data Allergies Allergy/AdvReac Type Severity Reaction Status Date / Time codeine AdvReac Mild GI SYMPTOMS Verified 10/09/17 15:31 Consultations Gastroenterology Oncology Ordered Studies 08/10/18 14:57 CT abd pelvis IV con only Stat Hospital Course (1) Biliary obstruction: This patient is a 73-year-old male with a history of metastatic pancreatic cancer with metastases to the right lower lobe of the lung, and omentum, with pancreatic head mass encasing sunitha splenic vessels with collaterals and possibly invading into the stomach. He also has a history of CAD status post LAD stent in 2010, hyperlipidemia, DM 2 on insulin, HTN with autonomic dysfunction and labile blood pressures, Parkinson's disease, BPH, restless leg syndrome, GERD, chronic back pain, who presented to the ER with worsening jaundice over the last 1-2 weeks. He also had worsening acute on chronic epigastric pain and nausea with vomiting. In the ER, he was found to have a bilirubin of 6.3 which worsened to 7 on the day of discharge. His alkaline phosphatase was in the 500s and AST was also mildly elevated in the 60s. He was found to have abrupt cut off of the CBD at the level of the pancreatic head with intra-and extrahepatic biliary ductal dilatation. He was admitted for obstructive jaundice secondary to his metastatic pancreatic cancer. His CT scan also showed progressive metastatic disease with enlarging omental and right lower lobe masses. His pancreatic mass was stable in size. He was placed on prophylactic antibiotics although there were no signs of cholangitis. His aspirin and Plavix were held because of the need for ERCP for biliary duct placement. Due to his complex history and being on aspirin Plavix with the risk for bleeding, our outreach coordinator evaluated the patient and thought he would be best suited to be taken care of at a tertiary care facility like [facility]. The case was discussed with the accepting physician there, Dr. Espinal, as well as the on-call GI physician, Dr. Morrissey. -He will be transferred to [facility] -IV fluids were given but then discontinued as he was tolerating p.o. at the time of discharge, but he should likely be n.p.o. after midnight tonight -Continue cefoxitin 1 g IV every 8 hours for prophylaxis for cholangitis -Continue to trend LFTs -Hopeful plan for CBD stent placement -Consider giving platelets in light of recent Plavix use-last aspirin and Plavix use was on 08/10/18 (2) Parkinson disease: Uses Sinemet TID with a long-acting medication overnight. Had also started gabapentin TID per , but it made him too tired. She has dropped it to QHS. - Continue home Sinemet - Decrease gabapentin to 100mg PO QHS (3) Diabetes mellitus: High insulin needs at home. - Lower home insulin to 15 units twice daily as has had poor p.o. intake the last few days due to nausea and vomiting - Sliding scale -Hold home metformin due to IV contrast dye recently (4) CAD (coronary artery disease): On ASA/Plavix for history of CAD and LAD stent in 2010 - Will continue to hold ASA/Plavix for ERCP and restart when able to He is not having any current chest pain or shortness of breath or any signs of angina or ischemia (5) Hypertension: This patient has a well-known history of extremely labile BP, often with 100 mmHg swings spontaneously due to autonomic instability. - Continue home meds - Will *NOT* treat with a PRN medication as this resulted in BP down to 60/40s during prior hospitalization - Only treat PRN if there is evidence of end organ damage (6) Pancreatic cancer: Recently seen at [facility] with biopsy done to attempt immunotherapy; however, they were not able to get any tumor during the biopsy. CT a/p on 08/10 indicates progressive disease. Has had a long almost 6-year indolent course of pancreatic cancer with metastases to the right lower lobe of the lung and omentum, that usually response to treatment however he is stopped treatment due to side effects in the past. Last chemotherapy treatment was April 2018. - Oncology consult appreciated and recommend treatment for bili obstruction first and then follow-up as an outpatient after that to discuss future treatment care plans - Continue anti-emetics as needed (7) Chronic diastolic CHF (congestive heart failure): No indicate on exam of any volume overload, and patient has had reduced intake from nausea and vomiting. reports he hasn't taken his PRN Lasix in weeks. - Monitor volume status after receiving IV fluids -Hold Lasix (8) Labile blood pressure: As noted above (9) Hypokalemia: Replaced with IV potassium chloride riders today Follow BMP (10) DVT prophylaxis: SCDs only in case of need for procedure Disposition-transfer to [facility] urgently for complex endoscopy-greatly appreciate [facility] accepting this patient. Full code Total Time Total Time Spent Total Time Spent (In Minutes): Greater than 30 minutes Total Time Includes: Examination of the Patient, Discharge Planning, Medication Reconciliation and Communication With Other Providers (Gastroenterology, oncology) Discharge Plan Discharge Items Patient Disposition: Transfer Acute Care Hospital Reason For Visit: JAUNDICE Discharge Diagnosis: Obstructive jaundice, pancreatic cancer Condition: Fair Discharge Goals: Decrease discomfort, Diagnostic testing, Improve disease control, Learn about illness and Therapeutic intervention Activity: As commented below Lifting: None Bathing: No limitations Exercise/Sports: Rest today Non-emergency contact: Primary Care Provider, Senior Manager and Oncologist Call non-emergency contact if: you have any medication questions, your symptoms worsen, your pain is not controlled, your pain is worsening and your pain is unusual for you Diet: Nothing by mouth Addtl Provider Instructions: Patient transferred urgently to [facility] Prescriptions: New gabapentin 100 mg Capsule 100 mg PO QPM Qty: 30 RF: 0 Continue atorvastatin 10 mg Tablet 10 mg PO Q OTHER DAY RF: 0 donepezil 10 mg Tablet 10 mg PO HS RF: 0 ropinirole 0.5 mg Tablet 0.5 mg PO TID RF: 0 furosemide 20 mg Tablet 20 mg PO DAILY PRN (Reason: Edema) RF: 0 finasteride 5 mg Tablet 5 mg PO DAILY RF: 0 silodosin [Rapaflo] 8 mg Capsule 8 mg PO QPM RF: 0 acetaminophen [Tylenol 8 Hour] 650 mg Tablet Extended Release 2 tab PO Q8H PRN (Reason: Pain) RF: 0 lidocaine 5 % Adhesive Patch,Medicated 1 patch TOPICAL DAILY PRN (Reason: Pain) RF: 0 loperamide 2 mg Capsule 2 mg PO Q3H PRN (Reason: diarrhea) Qty: 15 RF: 0 carbidopa-levodopa 25-250 mg Tablet 1.5 tab PO [id number] Qty: 120 RF: 0 carbidopa-levodopa 50-200 mg Tablet Extended Release 1 tab PO HS Qty: 30 RF: 0 pantoprazole 40 mg Tablet,Delayed Release (Dr/Ec) 40 mg PO BID Qty: 60 RF: 0 lisinopril [Zestril] 10 mg Tablet 10 mg PO QAM Qty: 30 RF: 0 metoprolol tartrate 25 mg Tablet 25 mg PO BID Qty: 60 RF: 0 tramadol 50 mg Tablet 50 mg PO TID PRN (Reason: Pain) Qty: 3 RF: 0 potassium chloride 10 mEq capsule, extended release 10 meq PO QPM RF: 0 ondansetron HCl [Zofran] 8 mg tablet 8 mg PO TID PRN (Reason: Nausea) RF: 0 prochlorperazine maleate [Compazine] 10 mg tablet 10 mg PO Q6 PRN (Reason: Nausea) RF: 0 mupirocin 2 % Ointment 1 applic TOPICAL BID RF: 0 insulin lispro [Humalog KwikPen Insulin] 100 unit/mL insulin pen subcut TIDM RF: 0 insulin glargine [Lantus Solostar U-100 Insulin] 100 unit/mL (3 mL) insulin pen 30 - 40 units subcut QPM RF: 0 cholecalciferol (vitamin D3) [Vitamin D3] 2,000 unit Tablet 2,000 unit PO DAILY RF: 0 colestipol [Colestid] 1 gram tablet 1 g PO QAM RF: 0 ipratropium bromide 42 mcg (0.06 %) spray,non-aerosol 2 spray Intranasal TID RF: 0 Discontinued clopidogrel 75 mg Tablet 75 mg PO DAILY RF: 0 aspirin 81 mg Tablet,Delayed Release (Dr/Ec) 81 mg PO DAILY RF: 0 metformin 500 mg Tablet 500 mg PO QPM RF: 0 gabapentin 300 mg Capsule 300 mg PO TID RF: 0 Stand-Alone Forms: [facility] Discharge Orders: Discharge Order (Routine); Ordered 08/11/18 Ordered By: Katiana Borges Admission Data Admit Date/Time: 08/10/18 18:09 Attending Provider: Katiana Borges Admit Provider: Ray Castro Primary Care Provider: Gerald Gardner Other Providers: Ray Castro ; Enrique Brito ; Azeem Burt Service: Oncology Other Pending Studies at Discharge: No
--- NOTE | 2018-08-11 18:05 | Progress Note ---
DATE: 08/11/2018 REASON FOR EVALUATION: Jaundice. HISTORY OF PRESENT ILLNESS: The patient is a 73-year-old man with pancreatic cancer diagnosed in 09/2012 patient has undergone multiple episodes of chemotherapy. His last chemo was given in April and it was decided at that time not to continue due to compounding toxicities. He appears to have an abdominal mets as well as lung met as well. He last was attempted biopsy of the tumor and lymph nodes in [place] on 07/20/2018 but unfortunately no malignant cells were recovered. The patient has noted a lightning of his stools over the last 2 months. He was on a cruise this past week and during that time his urine turned dark and his skin and eyes were starting to turn yellow, which was noticeable, but to his . When he returned on Friday night, they decided to contact their physician who referred them to the ER. Yesterday, he had a CT scan that shows 3 cm pancreatic tumor, which is unchanged, but he now has dilated bile ducts consistent with biliary obstruction. He denies any pruritus at this time or decreased appetite. There are no plans to resume chemotherapy at this time. Request is made for ERCP with biliary stenting. Of note, is that the patient has been taking a baby aspirin and Plavix up until the time of hospitalization for coronary disease and history of stent placements. He also has underlying Parkinson's disease, diabetes, hypertension, and congestive heart failure making the risk for the procedure more significant. PAST MEDICAL HISTORY: Remarkable for Parkinson's disease, pancreatic cancer with mets, diabetes, coronary artery disease, status post stent placement, hypertension, congestive heart failure. MEDICATIONS: Per list. ALLERGIES: CODEINE. FAMILY HISTORY: Noncontributory. SOCIAL HISTORY: The patient is . 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 Former smoker, drinks a couple of beers per week. REVIEW OF SYSTEMS: Remarkable for decreased mobility from his Parkinson's disease. He is feeling no pain at this time. Remainder is negative. PHYSICAL EXAMINATION: GENERAL: The patient is rather stiff and with a masked face. VITAL SIGNS: Normal. He is afebrile. Skin is dry. He has a few ecchymoses on his hand. Skin is jaundiced. LUNGS: Clear. HEART: Showed are regular rate and rhythm without murmurs, rubs, or gallops. ABDOMEN: Shows a radiation tattoo, which he has never received in the epigastric area. He does have a ventral hernia in the upper abdomen. No masses or tenderness were appreciated. EXTREMITIES: Showed no edema. NEUROLOGIC: Showed him to be rather stiff, and bradykinetic with some cogwheeling. IMPRESSION: The patient has pancreatic cancer with biliary obstruction. He is on antibiotics at this time, which I would recommend continuing. He will need to have his biliary obstruction stented possibly with a metal stent and will probably need a sphincter either dilated or cut and he is on aspirin and Plavix, which increases the risk for bleeding. He also has underlying heart disease and Parkinson's disease and diabetes also increasing his risk. I discussed this with the patient and his and they are agreeable to transferring to [facility] to have this procedure done there. I discussed the situation with the hospitalist and they are going to work on arranging transfer.
[2018-08-11] MEDS: DONEPEZIL HCL 10 MG TAB PO SCH (20:18)
[2018-08-11] MEDS: GABAPENTIN 100 MG CAP PO SCH (20:18)
[2018-08-11] MEDS: CARBIDOPA/LEVODOPA 50/200MG EXT REL TAB PO SCH (20:19)
[2018-08-11] MEDS ORDERED: ATORVASTATIN 10 MG TAB PO SCH (21:00)
[2018-08-12] MEDS ORDERED: INSULIN ASPART 100 UNITS/ML 3 ML PEN SC SCH
== END 2018-08-11 21:06 | disposition short-term general hospital (02) | DRG 445 ==
LOC: ED 13:47 → SUATTDRO 18:09 → 4E 18:09